=== PATIENT | female | born 1960 | race Caucasian/White ===

== ENCOUNTER 2017-11-05 13:09 | Emergency (ER) | payer OTHER, MEDICARE, SELFPAY ==
[2017-11-05] VITALS (8 sets, daily range): BP systolic 86–139; BP diastolic 44–100; PULSE 70–116; RESP 18–28; TEMP 36.6; O2SAT 95–100; BMI 16.2
--- NOTE | 2017-11-05 13:14 | EKG12_ITS ---
Test Reason : CHEST PAIN Blood Pressure : / mmHG Vent. Rate : 108 BPM Atrial Rate : 108 BPM P-R Int : 118 ms QRS Dur : 064 ms QT Int : 372 ms P-R-T Axes : 072 072 069 degrees QTc Int : 498 ms Sinus tachycardia Otherwise normal ECG Confirmed by SARAH SERNA, LATASHA ([id number]), research editor FAZAL STOUT ([id number]) on 11/08/2017 4:04:20 PM Referred By: Confirmed By:LATASHA SMITH MD
--- NOTE | 2017-11-05 13:33 | ED.VISSUMM ---
- ER Visit Summary Date of Service: 11/05/17 Chief Complaint: [] Myelodysplastic disorder, chemotherapy for 4 days last week, diarrhea 1 week ago, cough for a week, chest pain this morning History of Present Illness: The patient is a 57 F [] reports all that above history she has myelodysplastic disorder, prior stroke hemorrhagic, she is not sure if she currently has hypertension, she indicates she has chemotherapy daily for 5 days last week she developed diarrhea and a cough and this morning developed chest pain that she really cannot describe might be worse with coughing. She has had no fevers the diarrhea is watery, the cough is nonproductive and dry she has had no fevers that she can recall she is followed by Dr. Azul. She has no history of COPD [place] PE DVT Physical Examination: [] Sitting comfortably in the bed she is in no distress her vital signs are normal her pulse ox on room air is 98% she is afebrile her HEENT exam shows unremarkable neck supple lungs are clear heart tones are unremarkable abdomen soft nontender the left lower extremity has a skin abrasion she has had for 2 weeks it could potentially is cellulitic at is it has some yellow drainage to it she is able to fully dorsi and plantarflex at the ankle she was evaluated for this at wound care she was on antibiotics and now she is doing dressing changes neurologically she is awake alert moving all 4, she indicates the left lower extremity wound is really unchanged and she feels it is likely improving Test Results: [] Emergency Department Course and Treatment: [] Multiple complaints as above her blood pressure was noted to be 88 over palp she is a very frail petite woman or trying to obtain her med list initial EKG shows a sinus rhythm nothing acute screening labs Her labs are all generally unremarkable her blood pressure is now 107/88 she is resting company states she feels much better her troponin chest x-ray etc. are normal, her d-dimer returned slightly positive at 0.68, she has no history of IL PE or DVT infection and negative nuclear stress test in 2016 Cough and diarrhea are currently resolved Discussed with the patient inpatient versus outpatient management I recommended admission however she states she is feeling better and she does not wish to be admitted family is in the room with her, she has obvious capacity to make this decision and she understands a concern for an occult life-threatening condition but again does not wish to be admitted feels better and wants to be worked up as an outpatient, she is agreeable to obtaining the CTA of the chest if the CT is negative at her request she will be discharged home with the understand to follow-up with her physicians and return for change in symptoms Treatment Plan: [] Disposition: [] Home pending CTA results Impression: [] Chest pain improved to resolved, cough and diarrhea resolved, history of myelodysplastic disorder recent chemotherapy This note was generated with [employer] dictation software. It may contain incorrect words, spelling, and punctuation that were not noted in review of the chart prior to signing ED Disposition - Plan for ED Patient: Chief Complaint: Chest Pain Referrals: Frankie Cao [Primary Care Provider] -
[2017-11-05] MEDS: Ondansetron 4 MG/2 ML Vial IV (13:35)
--- NOTE | 2017-11-05 13:40 | RAD_ITS ---
STUDY: X-RAY CHEST REASON FOR EXAM: Female, 57 years old. CHEST PAIN; LEUKEMIA TECHNIQUE: Single AP portable view of the chest. COMPARISON: July 24, 2017 FINDINGS: The lungs are again hyperexpanded with mildly prominent interstitial markings predominantly of the lower lobes.. There is no demonstrated pleural abnormality. Normal size heart. Normal mediastinum and joselyn. Normal visualized pulmonary arteries. Normal visualized aortic arch and descending thoracic aorta. Normal visualized thoracic spine. Normal visualized ribs, clavicles, and shoulders. There is no demonstrated abnormality of the visualized soft tissue structures of the upper abdomen. RAD/Chest 1 View (Portable) IMPRESSION: No acute disease is demonstrated. Electronically Signed: Oralia Leo MD at 13:55 EDT , Service support ,
[2017-11-05 13:47] LABS: Absolute Lymphocyte Count 0.59 X10^3/ul (0.83-4.51); Absolute Neutrophil Count 9.9 X10^3/uL (2.0-7.7); Basophil# 0.02 X10^3/uL; Basophil% 0.2 % (0-1); Eosinophils% 0.9 % (0-5); Hematocrit 30.8 % (37-47); Hemoglobin 10.4 g/dl (12.0-15.0); Lymphocyte # 0.59 X10^3/ul (4.0); Lymphocyte % 5.3 % (19-41); Mean Corp Hgb Conc 33.8 g/gl (32-36); Mean Corpuscular Hgb 35.3 pg (27.0-32.0); Mean Corpuscular Volume 104.4 fL (81-99); Mean Platelet Vol. 10.1 fl (6.2-12.0); Monocyte# 0.44 X10^3/uL; Neutrophil # 9.88 X10^3/uL (2.7-7.7); Neutrophil % 89.3 % (47-70); Platelet Count 81 K/mm3 (150-450); RBC Distribution Width CV 14.7 % (11.6-14.6); RBC Distribution Width SD 55.6 fl (35.1-43.9); Red Blood Count 2.95 M/mm3 (4.2-5.4); White Blood Count 11.1 K/mm3 (4.4-11.0)
[2017-11-05 13:48] LABS: Differential Indicated SCAN CRITERIA MET; POSITIVE COUNT NO; POSITIVE DIFFERENTIAL YES; POSITIVE MORPHOLOGY NO
[2017-11-05 13:56] LABS: Differential Comment SCANNED
[2017-11-05 14:02] LABS: Anion Gap 12 (5-15); BUN 8 mg/dL (7-18); BUN/Creat Ratio 9.6 RATIO (10-20); Calcium,Total 8.7 mg/dL (8.5-10.1); Chloride 100 mmol/L (98-107); Creatinine, Serum 0.84 mg/dL (0.55-1.02); EST Glomerular Filtration Rate 75 mL/min (>60); Est Glom Filt Rate - Afr Amer 90 mL/min (>60); Estimated Creatinine Clearance 54.94 ml/min; Glucose 88 mg/dL (74-106); Potassium 4.5 mmol/L (3.5-5.1); Sodium Level 136 mmol/L (136-145)
[2017-11-05] MEDS: 0.9% Normal Saline 1,000 ML 150 ML IV ×2 (14:05)
[2017-11-05 14:11] LABS: BNP,B-Type NATRIURETIC PEPTIDE 18.9 pg/mL (0-100)
[2017-11-05 14:37] LABS: Partial Thromboplast Time 32.4 Seconds (24.1-36.2)
[2017-11-05 14:41] LABS: D-Dimer Quantitative (DVT/PE) 0.82 FEU/ug/m (0.27-0.49)
--- NOTE | 2017-11-05 14:53 | CT_ITS ---
STUDY: CTA CHEST REASON FOR EXAM: Female, 57 years old. CHEST PAIN, COUGH X2 WEEKS hx-myelodysplastic syndrome w/ chemo x7 years +smoker 1/2 ppd x20 years RADIATION DOSAGE (If Supplied By Facility): CTDIvol = ( 4.27 ) mGy, DLP = ( 150.49 ) mGycm TECHNIQUE: The examination was performed with the intravenous administration of 75cc ml of Isovue 370 contrast material. Post-processing of the angiographic images was performed, with multiplanar reformation and 3D reconstruction. Individualized dose optimization techniques were used for this CT. COMPARISON: X-ray earlier in the day, CT August 29, 2014 FINDINGS: There is motion artifact. Normal enhancement of the main pulmonary artery and right and left pulmonary arteries. Normal enhancement of the bilateral peripheral pulmonary arteries. There is no demonstrated pulmonary embolism. There is atherosclerotic calcification of the aortic arch with tortuosity. There is no demonstrated aortic dissection. Normal heart and pericardium. Normal mediastinum. There are stable left hilar calcified lymph nodes. Normal visualized trachea and bronchi. Lungs are again hyperexpanded with bullous disease. There are stable postinflammatory changes of the lung apices. There is a stable left lower lobe calcification granuloma. Normal chest wall structures. There are degenerative changes of thoracic spine. Again seen are multiple calcified granulomata of the spleen. CT/CTA Chest W/WO Contrast IMPRESSION: No demonstrated pulmonary embolism or aortic dissection. No acute abnormality is demonstrated. Electronically Signed: Oralia Leo MD at 15:52 EDT , Service support ,
--- NOTE | 2017-11-05 15:15 | ED.DEP ---
ED Disposition - Plan for ED Patient: Chief Complaint: Chest Pain Instructions: ED Chest Pain Atypical Unkn Cause Referrals: Frankie Cao [Primary Care Provider] - Lindsay Nguyen MD [STAFF PHYSICIAN] -
--- NOTE | 2017-11-05 16:14 | EKG12_ITS ---
Test Reason : REPEAT Blood Pressure : / mmHG Vent. Rate : 097 BPM Atrial Rate : 097 BPM P-R Int : 134 ms QRS Dur : 064 ms QT Int : 394 ms P-R-T Axes : 075 054 063 degrees QTc Int : 500 ms Normal sinus rhythm Prolonged QT Abnormal ECG Confirmed by SARAH SERNA, LATASHA ([id number]), newspaper photo editor FAZAL STOUT ([id number]) on 11/08/2017 4:04:38 PM Referred By: TL Confirmed By:LATASHA SMITH MD
[2017-11-05 16:19] LABS: Bacteria 0 SEEN /hpf (None Seen); Mucous, Urine 0 SEEN /hpf (<or=2+); Red Blood Cells-Urine 0 SEEN /hpf (0-5)
[2017-11-05 16:33] LABS: Color, Urine Yellow (Yellow); Glucose, Dipstick Normal (Normal); Ketone-Dipstick Negative (Negative); Leukocyte Esterase-Dipstick 500 /ul (Negative); Nitrite-Dipstick Negative (Negative); Occult Blood-Urine 50 /ul (Negative); Protein-Dipstick 30 mg/dl (Negative); Urine Bilirubin Dipstick Negative (Negative); Urine Clarity Cloudy (Clear); Urine Urobilinogen 1 mg/dl (Normal)
[2017-11-05 16:44] LABS: Squamous Epithelial Cells - UA 10-25 SEEN /hpf (5-10); White Blood Cells 0-5 SEEN /hpf (0-5)
== END 2017-11-05 18:16 | disposition home or self-care (01) ==
PROVIDERS: Emergency Medicine; Emergency Provider Emergency Medicine
DX: R07.9 Chest pain, unspecified (principal); I95.9 Hypotension, unspecified; R11.2 Nausea with vomiting, unspecified; R05 Cough; R19.7 Diarrhea, unspecified; C94.6 Myelodysplastic disease, not elsewhere classified; Z86.73 Personal history of transient ischemic attack (TIA), and cerebral infarction without residual deficits; Z79.891 Long term (current) use of opiate analgesic; Z79.899 Other long term (current) drug therapy
CPT/HCPCS: 36415; 36591; 71045; 71275; 80048; 81001; 83880; 84484; 85025; 85379; 85730; 87070; 87077; 87186; 87205; 93005; 96361; 96374; 96375; 96376; 99285; J7030; J7040; Q9967; A4216; J2405

== ENCOUNTER 2018-02-19 22:57 | Observation (INO) | payer OTHER, MEDICARE, SELFPAY ==
[2018-02-19 22:59] VITALS: BP 118/78; PULSE 95; RESP 24; TEMP 36.7; O2SAT 98; BMI 18.3
--- NOTE | 2018-02-19 23:36 | EKG12_ITS ---
Test Reason : SOB Blood Pressure : / mmHG Vent. Rate : 078 BPM Atrial Rate : 078 BPM P-R Int : 118 ms QRS Dur : 068 ms QT Int : 426 ms P-R-T Axes : 061 061 059 degrees QTc Int : 485 ms Normal sinus rhythm with sinus arrhythmia Prolonged QT Abnormal EKG Confirmed by SARAH SERNA, LATASHA ([id number]), food expeditor SHERRI VIDAL ([id number]) on 02/22/2018 4:28:43 PM Referred By: DR GONSALEZ Confirmed By:LATASHA SMITH MD
--- NOTE | 2018-02-19 23:40 | ED.DCSUM_ITS ---
- ER Visit Summary Date of Service: 02/19/18 Chief Complaint: [Shortness of breath and weakness] History of Present Illness: The patient is a 57 F [who presents the emergency department with general malaise. It started yesterday. She has not eaten for the last 2 days she has had a small amount of fluids. She had a fever of 101 yesterday. She has a cough is nonproductive. She has a history of anxiety but ran out of her medication 1-2 weeks ago which was Ativan. She complains of general weakness. She has a history of myelodysplastic syndrome and COPD she is on chemotherapy followed by Dr. Azul she is a smoker.] Physical Examination: [] Cachectic WD NAD PERRL EOMI pale conjunctive a MMM NECK supple and nontender, no masses RRR no murmur rub or gallop, no peripheral edema, symmetric radial pulses Slightly diminished breath sounds diffusely no respiratory distress tachypnea ABDOMEN is soft and nontender, normal bowel sounds, no distension, no rebound or guarding SKIN is warm and dry no rashes multiple small superficial bruising under the skin of the extremities Alert and Oriented x3, CN II-XII in tact, no motor or sensory deficits, gait normal No lymphadenopathy Test Results: [] Emergency Department Course and Treatment: [EKG was obtained and sinus at a rate of 78 with a slightly prolonged QTC at 485 ms. There is no acute ischemic changes. Chest x-ray shows no acute process. Screening labs show anemia otherwise unremarkable. Patient was quite anxious she was given Ativan and her anxiety improved however she remained very tachycardic in the 1 teens and with any movement she would have a heart rate in the 120s-130s. She is on chemotherapy for mild [place] dysplastic syndrome. Cultures were sent. She has been coughing she has had no appetite she is not eating or drinking she has had chills and sweats for those reasons I do think we should cover her with antibiotics in the abnormalities and her vital signs require admission.] Treatment Plan: [] Disposition: [Admit] Impression: [Clinical pneumonia 2 dehydration 3 orthostasis] This note was generated with [email or web address] dictation software. It may contain incorrect words, spelling, and punctuation that were not noted in review of the chart prior to signing ED Disposition - Plan for ED Patient: Chief Complaint: Shortness of Breath Referrals: NOT,DEFINED [NON-STAFF] -
[2018-02-20] VITALS (9 sets, daily range): BP systolic 102–134; BP diastolic 67–84; PULSE 85–118; RESP 17–25; TEMP 36.6–36.9; O2SAT 94–97; BMI 14.6
[2018-02-20] MEDS: Albuterol 2.5 MG/3 ML VIAL.NEB. INHALATION
--- NOTE | 2018-02-20 | RAD_ITS ---
STUDY: X-RAY CHEST REASON FOR EXAM: Female, 57 years old. Cough and shortness of breath. Smoker. History of COPD and leukemia. TECHNIQUE: Frontal and lateral views of the chest. COMPARISON: 11/05/2017. FINDINGS: There is a left subclavian Port-A-Cath with its tip in the superior vena cava. There are extensive fibrotic and emphysematous changes in the lungs, with most prominent emphysematous changes in the upper lung mcpherson. There is no demonstrated focal pulmonary consolidation. There is no demonstrated pleural abnormality. Normal size heart. Normal mediastinum and joselyn. Normal visualized pulmonary arteries. Normal visualized aortic arch and descending thoracic aorta. Normal visualized thoracic spine. Normal visualized ribs, clavicles, and shoulders. There is no demonstrated abnormality of the visualized soft tissue structures of the upper abdomen. RAD/Chest PA and Lateral IMPRESSION: Extensive fibrotic and emphysematous changes in the lungs Port-A-Cath. No evidence for acute cardiopulmonary pathology. Electronically Signed: Alejandro Estrada MD at 2:11 EDT , Service support ,
[2018-02-20 00:09] LABS: Absolute Lymphocyte Count 0.81 X10^3/ul (0.83-4.51); Absolute Neutrophil Count 5.9 X10^3/uL (2.0-7.7); Basophil# 0.01 X10^3/uL; Basophil% 0.1 % (0-1); Eosinophil# 0.04 X10^3/uL; Eosinophils% 0.6 % (0-5); Hematocrit 28.1 % (37-47); Hemoglobin 9.4 g/dl (12.0-15.0); Lymphocyte # 0.81 X10^3/ul (4.0); Lymphocyte % 11.5 % (19-41); Mean Corp Hgb Conc 33.5 g/gl (32-36); Mean Corpuscular Hgb 34.9 pg (27.0-32.0); Mean Corpuscular Volume 104.5 fL (81-99); Mean Platelet Vol. 10.6 fl (6.2-12.0); Monocyte# 0.27 X10^3/uL; Monocyte% 3.8 % (0-10); Neutrophil # 5.87 X10^3/uL (2.7-7.7); Neutrophil % 83.7 % (47-70); Platelet Count 104 K/mm3 (150-450); RBC Distribution Width CV 13.6 % (11.6-14.6); RBC Distribution Width SD 49.5 fl (35.1-43.9); Red Blood Count 2.69 M/mm3 (4.2-5.4)
[2018-02-20 00:12] LABS: POSITIVE COUNT NO; POSITIVE DIFFERENTIAL NO; POSITIVE MORPHOLOGY NO
[2018-02-20 00:32] LABS: Anion Gap 10 (5-15); BUN 9 mg/dL (7-18); BUN/Creat Ratio 12.6 RATIO (10-20); Calcium,Total 7.6 mg/dL (8.5-10.1); Chloride 102 mmol/L (98-107); Creatinine, Serum 0.72 mg/dL (0.55-1.02); EST Glomerular Filtration Rate 89 mL/min (>60); Est Glom Filt Rate - Afr Amer 108 mL/min (>60); Glucose 76 mg/dL (74-106); Potassium 3.7 mmol/L (3.5-5.1); Sodium Level 136 mmol/L (136-145)
[2018-02-20] MEDS: LORazepam 2 MG/ML Syringe 0.5 MG IV (02:58)
[2018-02-20] MEDS: levoFLOXacin IV 750 MG/150 ML BAG 100 MG IV (03:51)
--- NOTE | 2018-02-20 05:26 | PCM.HP.STD ---
Problem List (1) Alcoholism Status: Chronic (2) Nicotine abuse Status: Chronic (3) Hyperlipidemia Status: Chronic (4) Atherosclerotic heart disease of [place] coronary artery without angina pectoris Status: Chronic (5) HTN (hypertension) Status: Chronic (6) MDS (myelodysplastic syndrome) Status: Chronic (7) Shortness of breath Status: Acute History of Present Illness Date of Admission: 02/20/18 Chief Complaint: shortness of breath The patient is a 57 year old female patient with a significant history of COPD, coronary artery disease, history of alcohol abuse and chronic benzodiazepine use who is undergoing treatment for myelodysplastic syndrome who presents to the ER with shortness of breath. She reports not eating for the past two days. She had a fever of 101F at home yesterday. In the ER she is afebrile but has tachycardia and tachypnea. Lab studies are consistent with mild anemia and chest x-ray reveals emphysema. The ER physician speculates that patient may have pneumonia but is dehydrated and infiltrate not visible on x-ray for that reason. The patient will be admitted for observation status of this respiratory distress. Past Medical History Past Medical History (Chronic Problems): Chronic Problems (Last Updated 01/08/18 @ 13:22 by Rosalie Vickers) Alcoholism (Chronic) Nicotine abuse (Chronic) Acute [place], subendocardial (Chronic) Hyperlipidemia (Chronic) Atherosclerotic heart disease of [place] coronary artery without angina pectoris (Chronic) UIP (usual interstitial pneumonitis) (Chronic) suspected severe chronic changes on CT scan Stroke, hemorrhagic (Chronic) reportedly after a fall w head trauma HTN (hypertension) (Chronic) MDS (myelodysplastic syndrome) (Chronic) Medical History: Medical History (Last Updated 01/08/18 @ 13:22 by Rosalie Vickers) Alcoholism (Chronic) F10.20 Acute [place], subendocardial (Chronic) I21.4 Hyperlipidemia (Chronic) E78.5 Atherosclerotic heart disease of [place] coronary artery without angina pectoris (Chronic) I25.10 Acute respiratory failure with hypoxia (Acute) J96.01 Stroke, hemorrhagic (Chronic) I61.9 reportedly after a fall w head trauma HTN (hypertension) (Chronic) I10 MDS (myelodysplastic syndrome) (Chronic) D46.9 Chronic interstitial lung disease J84.9 Renal failure N19 Seizure disorder G40.909 Allergies No Known Allergies Allergy (Verified 02/19/18 23:01) Home Medications: Ambulatory Orders Medication Instructions Recorded Gabapentin [Neurontin] 800 mg PO TIDCM 08/29/14 Amitriptyline HCl 25 mg PO QHS 01/17/15 Lorazepam [Ativan] 0.5 mg PO BID 01/17/15 Sertraline HCl [Zoloft] 100 mg PO DAILY 01/17/15 Multivitamins,Ther W-Minerals 1 tablet PO DAILY 09/20/15 [Multivitamin With Minerals] Ondansetron [Zofran Odt] 8 mg PO Q8H PRN PRN 09/20/15 levETIRAcetam tablet [Keppra 500 mg PO BID 03/27/16 tablet] Nitroglycerin 0.4 mg SL PRN PRN 07/17/17 Omeprazole [Prilosec] 40 mg PO DAILY 07/17/17 Potassium Chloride [Klor-Con M20] 20 meq PO TID 07/17/17 Diphenoxylate HCl/Atropine 1 each PO 4X/DAY PRN 11/05/17 [Diphenoxylate-Atrop 2.5-0.025] Ergocalciferol (Vitamin D2) 50,000 unit PO QWEEK 11/05/17 [Ergocalciferol] Hydrocodone/Acetaminophen [Vicodin 1 - 2 tablet PO Q6H PRN PRN 11/05/17 5-300 mg Tablet] atorvastatin 10 mg tablet 10 mg PO QDAY 11/13/17 Surgical History: Surgical History (Last Updated 01/08/18 @ 13:22 by Rosalie Vickers) Hx of craniotomy Onset Date: ~2012 Z98.890 Hx of tubal ligation Z98.51 Smoking Status: Current some day smoker - *Family History Maternal Family History: Family History (Last Updated 01/08/18 @ 13:24 by Rosalie Vickers) Mother CAD (coronary artery disease) Brother Hypertension Atrial fibrillation History Items: Unknown Review of Systems Constitutional: Reports: Fever, Malaise, Weakness. Denies: Chills, Weight Change HEENT: Denies: Head Aches, Sinus Congestion, Sinus Drainage Cardiovascular: Denies: Chest Pain, Palpitations Respiratory: Reports: Shortness of breath at rest. Denies: Cough, Sputum production Gastrointestinal: Denies: Abdominal Pain, Nausea, Vomiting Genitourinary: Denies: Dysuria Musculoskeletal: Denies: Joint Pain, Joint Tenderness Skin: Denies: Rash, Wounds Neurological: Denies: Numbness, Tingling, Focal weakness Psychiatric: Reports: Anxiety. Denies: Depression, Homicidal Ideations, Suicidal Ideations Hematologic/ Lymphatic: Denies: Easy Bruising, Easy Bleeding VTE Information - Inpt Only VTE Present on Admission: No VTE Mechan Device Prophylaxis: SCD's VTE Pharm Prophylaxis ordered?: No Patient Problems: Active and Suspected Problems (Last Updated 01/08/18 @ 13:22 by Rosalie Vickers) Shortness of breath (Acute) - Physical Exam General: Alert, Oriented x3, Cooperative HEENT: Atraumatic, Normocephalic Neck: Supple Lungs: Normal air movement, Diminished Cardiovascular: Normal S1, Normal S2, No murmurs, Tachycardic Abdomen: Bowel Sounds Present, Soft, Non Tender Extremities: No edema Skin: No rashes Musculoskeletal: No Tenderness to Palpation of Joints or Extremities Neurological: Neuro grossly intact Psych/Mental Status: Anxious Vital Signs Temp Pulse Resp BP Pulse Ox 98.0 F 118 H 25 H 114/68 95 02/19/18 22:59 02/20/18 02:56 02/20/18 02:56 02/20/18 02:56 02/20/18 02:56 Oxygen Delivery Method Room Air Weight: 110 lb Body Mass Index (BMI) 18.3 Microbiology Past 72 Hours 02/20/18 00:10 Influenza Types A,B Direct FA (TINY) - Final Mucosa - Nose Laboratory Tests Past 24 Hrs 02/19/18 02/19/18 23:55 23:55 WBC 7.0 RBC 2.69 L Hgb 9.4 L Hct 28.1 L MCV 104.5 H MCH 34.9 H MCHC 33.5 RDW 13.6 RDW Differential 49.5 H Plt Count 104 L MPV 10.6 Immature Gran % (Auto) 0.300 Neut % (Auto) 83.7 H Lymph % (Auto) 11.5 L Lyman % (Auto) 3.8 Eos % (Auto) 0.6 Baso % (Auto) 0.1 Absolute Neuts (auto) 5.9 Absolute Lymphs (auto) 0.81 L Total Counted Not Reportable Sodium 136 Potassium 3.7 Chloride 102 Carbon Dioxide 24.0 Anion Gap 10 BUN 9 Creatinine 0.72 Estim Creat Clear Calc 67.90 Est GFR (MDRD) Af Amer 108 Est GFR (MDRD) Non-Af 89 BUN/Creatinine Ratio 12.6 Glucose 76 Calcium 7.6 L Troponin I < 0.015 Assessment/Plan All Active Problems (Last Updated 01/08/18 @ 13:22 by Rosalie Vickers) Shortness of breath (Acute) Acute respiratory failure with hypoxia (Acute) Chronic Problems (Last Updated 01/08/18 @ 13:22 by Rosalie [employer]) Alcoholism (Chronic) Nicotine abuse (Chronic) Acute [place], subendocardial (Chronic) Hyperlipidemia (Chronic) Atherosclerotic heart disease of [place] coronary artery without angina pectoris (Chronic) UIP (usual interstitial pneumonitis) (Chronic) suspected severe chronic changes on CT scan Stroke, hemorrhagic (Chronic) reportedly after a fall w head trauma HTN (hypertension) (Chronic) MDS (myelodysplastic syndrome) (Chronic) plan - admit to medical surgical floor for observation - oxygen per routine, DuoNeb inh q 4 hrs, Solumedrol 40mg iv q 8 hrs - levaquin 500mg IV q 24hrs - repeat cxr PA/LAT - IV normal saline at 100cc/hour - continue routine home medications - repeat CBC, BMP this evening - SCD for DVT prophylaxis Code Visit OBSV E&M: [id number] Initial observation care L2
--- NOTE | 2018-02-20 05:35 | HP.PCM_ITS ---
Problem List (1) Alcoholism Status: Chronic (2) Nicotine abuse Status: Chronic (3) Hyperlipidemia Status: Chronic (4) Atherosclerotic heart disease of [place] coronary artery without angina pectoris Status: Chronic (5) HTN (hypertension) Status: Chronic (6) MDS (myelodysplastic syndrome) Status: Chronic (7) Shortness of breath Status: Acute History of Present Illness Date of Admission: 02/20/18 Chief Complaint: shortness of breath The patient is a 57 year old female patient with a significant history of COPD, coronary artery disease, history of alcohol abuse and chronic benzodiazepine use who is undergoing treatment for myelodysplastic syndrome who presents to the ER with shortness of breath. She reports not eating for the past two days. She had a fever of 101F at home yesterday. In the ER she is afebrile but has tachycardia and tachypnea. Lab studies are consistent with mild anemia and chest x-ray reveals emphysema. The ER physician speculates that patient may have pneumonia but is dehydrated and infiltrate not visible on x-ray for that reason. The patient will be admitted for observation status of this respiratory distress. Past Medical History Past Medical History (Chronic Problems): Chronic Problems (Last Updated 01/08/18 @ 13:22 by Rosalie Vickers) Alcoholism (Chronic) Nicotine abuse (Chronic) Acute [place], subendocardial (Chronic) Hyperlipidemia (Chronic) Atherosclerotic heart disease of [place] coronary artery without angina pectoris (Chronic) UIP (usual interstitial pneumonitis) (Chronic) suspected severe chronic changes on CT scan Stroke, hemorrhagic (Chronic) reportedly after a fall w head trauma HTN (hypertension) (Chronic) MDS (myelodysplastic syndrome) (Chronic) Medical History: Medical History (Last Updated 01/08/18 @ 13:22 by Rosalie Vickers) Alcoholism (Chronic) F10.20 Acute [place], subendocardial (Chronic) I21.4 Hyperlipidemia (Chronic) E78.5 Atherosclerotic heart disease of [place] coronary artery without angina pectoris (Chronic) I25.10 Acute respiratory failure with hypoxia (Acute) J96.01 Stroke, hemorrhagic (Chronic) I61.9 reportedly after a fall w head trauma HTN (hypertension) (Chronic) I10 MDS (myelodysplastic syndrome) (Chronic) D46.9 Chronic interstitial lung disease J84.9 Renal failure N19 Seizure disorder G40.909 Allergies No Known Allergies Allergy (Verified 02/19/18 23:01) Home Medications: Ambulatory Orders Medication Instructions Recorded Gabapentin [Neurontin] 800 mg PO TIDCM 08/29/14 Amitriptyline HCl 25 mg PO QHS 01/17/15 Lorazepam [Ativan] 0.5 mg PO BID 01/17/15 Sertraline HCl [Zoloft] 100 mg PO DAILY 01/17/15 Multivitamins,Ther W-Minerals 1 tablet PO DAILY 09/20/15 [Multivitamin With Minerals] Ondansetron [Zofran Odt] 8 mg PO Q8H PRN PRN 09/20/15 levETIRAcetam tablet [Keppra 500 mg PO BID 03/27/16 tablet] Nitroglycerin 0.4 mg SL PRN PRN 07/17/17 Omeprazole [Prilosec] 40 mg PO DAILY 07/17/17 Potassium Chloride [Klor-Con M20] 20 meq PO TID 07/17/17 Diphenoxylate HCl/Atropine 1 each PO 4X/DAY PRN 11/05/17 [Diphenoxylate-Atrop 2.5-0.025] Ergocalciferol (Vitamin D2) 50,000 unit PO QWEEK 11/05/17 [Ergocalciferol] Hydrocodone/Acetaminophen [Vicodin 1 - 2 tablet PO Q6H PRN PRN 11/05/17 5-300 mg Tablet] atorvastatin 10 mg tablet 10 mg PO QDAY 11/13/17 Surgical History: Surgical History (Last Updated 01/08/18 @ 13:22 by Rosalie Vickers) Hx of craniotomy Onset Date: ~2012 Z98.890 Hx of tubal ligation Z98.51 Smoking Status: Current some day smoker - *Family History Maternal Family History: Family History (Last Updated 01/08/18 @ 13:24 by Rosalie Vickers) Mother CAD (coronary artery disease) Brother Hypertension Atrial fibrillation History Items: Unknown Review of Systems Constitutional: Reports: Fever, Malaise, Weakness. Denies: Chills, Weight Change HEENT: Denies: Head Aches, Sinus Congestion, Sinus Drainage Cardiovascular: Denies: Chest Pain, Palpitations Respiratory: Reports: Shortness of breath at rest. Denies: Cough, Sputum production Gastrointestinal: Denies: Abdominal Pain, Nausea, Vomiting Genitourinary: Denies: Dysuria Musculoskeletal: Denies: Joint Pain, Joint Tenderness Skin: Denies: Rash, Wounds Neurological: Denies: Numbness, Tingling, Focal weakness Psychiatric: Reports: Anxiety. Denies: Depression, Homicidal Ideations, Suicidal Ideations Hematologic/ Lymphatic: Denies: Easy Bruising, Easy Bleeding VTE Information - Inpt Only VTE Present on Admission: No VTE Mechan Device Prophylaxis: SCD's VTE Pharm Prophylaxis ordered?: No Patient Problems: Active and Suspected Problems (Last Updated 01/08/18 @ 13:22 by Rosalie Vickers) Shortness of breath (Acute) - Physical Exam General: Alert, Oriented x3, Cooperative HEENT: Atraumatic, Normocephalic Neck: Supple Lungs: Normal air movement, Diminished Cardiovascular: Normal S1, Normal S2, No murmurs, Tachycardic Abdomen: Bowel Sounds Present, Soft, Non Tender Extremities: No edema Skin: No rashes Musculoskeletal: No Tenderness to Palpation of Joints or Extremities Neurological: Neuro grossly intact Psych/Mental Status: Anxious Vital Signs Temp Pulse Resp BP Pulse Ox 98.0 F 118 H 25 H 114/68 95 02/19/18 22:59 02/20/18 02:56 02/20/18 02:56 02/20/18 02:56 02/20/18 02:56 Oxygen Delivery Method Room Air Weight: 110 lb Body Mass Index (BMI) 18.3 Microbiology Past 72 Hours 02/20/18 00:10 Influenza Types A,B Direct FA (TINY) - Final Mucosa - Nose Laboratory Tests Past 24 Hrs 02/19/18 02/19/18 23:55 23:55 WBC 7.0 RBC 2.69 L Hgb 9.4 L Hct 28.1 L MCV 104.5 H MCH 34.9 H MCHC 33.5 RDW 13.6 RDW Differential 49.5 H Plt Count 104 L MPV 10.6 Immature Gran % (Auto) 0.300 Neut % (Auto) 83.7 H Lymph % (Auto) 11.5 L [place] % (Auto) 3.8 Eos % (Auto) 0.6 Baso % (Auto) 0.1 Absolute Neuts (auto) 5.9 Absolute Lymphs (auto) 0.81 L Total Counted Not Reportable Sodium 136 Potassium 3.7 Chloride 102 Carbon Dioxide 24.0 Anion Gap 10 BUN 9 Creatinine 0.72 Estim Creat Clear Calc 67.90 Est GFR (MDRD) Af Amer 108 Est GFR (MDRD) Non-Af 89 BUN/Creatinine Ratio 12.6 Glucose 76 Calcium 7.6 L Troponin I < 0.015 Assessment/Plan All Active Problems (Last Updated 01/08/18 @ 13:22 by Rosalie Vickers) Shortness of breath (Acute) Acute respiratory failure with hypoxia (Acute) Chronic Problems (Last Updated 01/08/18 @ 13:22 by [facility]) Alcoholism (Chronic) Nicotine abuse (Chronic) Acute [place], subendocardial (Chronic) Hyperlipidemia (Chronic) Atherosclerotic heart disease of [place] coronary artery without angina pectoris (Chronic) UIP (usual interstitial pneumonitis) (Chronic) suspected severe chronic changes on CT scan Stroke, hemorrhagic (Chronic) reportedly after a fall w head trauma HTN (hypertension) (Chronic) MDS (myelodysplastic syndrome) (Chronic) plan - admit to medical surgical floor for observation - oxygen per routine, DuoNeb inh q 4 hrs, Solumedrol 40mg iv q 8 hrs - levaquin 500mg IV q 24hrs - repeat cxr PA/LAT - IV normal saline at 100cc/hour - continue routine home medications - repeat CBC, BMP this evening - SCD for DVT prophylaxis Code Visit OBSV E&M: 40058 Initial observation care L2
--- NOTE | 2018-02-20 06:18 | ED.RN ---
PATIENT PULLED PORT ACCESS OUT OF HERE AT THIS TIME. PATIENT NEEDLE INTAKE. PATIENT REACCESSED PRIOR TO GOING TO FLOOR
[2018-02-20] MEDS: 0.9% Normal Saline 1,000 ML 100 ML IV (08:00)
[2018-02-20 08:03] LABS: Bacteria 0 SEEN /hpf (None Seen); Mucous, Urine 0 SEEN /hpf (<or=2+); Red Blood Cells-Urine 0 SEEN /hpf (0-5)
[2018-02-20 08:25] LABS: Color, Urine Yellow (Yellow); Glucose, Dipstick Normal (Normal); Ketone-Dipstick 15 mg/dl (Negative); Leukocyte Esterase-Dipstick 25 /ul (Negative); Nitrite-Dipstick Negative (Negative); Occult Blood-Urine Negative /ul (Negative); Protein-Dipstick 30 mg/dl (Negative); Urine Clarity Sl. Cloudy (Clear); Urine Urobilinogen 12 mg/dl (Normal)
[2018-02-20 08:26] LABS: Urine Bilirubin Dipstick 3 mg/dL (Negative)
[2018-02-20 08:32] LABS: Squamous Epithelial Cells - UA 0-5 SEEN /hpf (5-10); White Blood Cells 0-5 SEEN /hpf (0-5)
--- NOTE | 2018-02-20 09:22 | NURSING ---
no scheduled meds delivered at this time-will monitor, sent Rx note to please send and put in ACCUDOSE for access
[2018-02-20] MEDS: Pantoprazole Sodium 40 MG Tablet PO (09:34)
[2018-02-20] MEDS: LORazepam 0.5 MG Tablet PO (09:34)
[2018-02-20] MEDS: levETIRAcetam 500 MG Tablet PO (09:34)
[2018-02-20] MEDS: Multivitamins,Ther W-Minerals Tablet 1 TABLET PO (09:34)
[2018-02-20] MEDS: Ipratropium/Albuterol Sulfate 3 ML AMPUL.NEB INHALATION ×2 (10:16)
--- NOTE | 2018-02-20 10:27 | PCM.PN.HOSP ---
Patient Problems: Active and Suspected Problems (Last Updated 01/08/18 @ 13:22 by Rosalie Vickers) Shortness of breath (Acute) Subjective: breathing well. no further fevers. Vitals/I&O's: Vital Signs Temp Pulse Resp BP Pulse Ox 36.6 C 110 H 20 H 124/75 H 97 02/20/18 06:58 02/20/18 06:58 02/20/18 06:58 02/20/18 06:58 02/20/18 06:58 Oxygen Delivery Method Room Air Weight: 40.398 kg Body Mass Index (BMI) 14.6 General: Alert, No apparent distress HEENT: Atraumatic, Normocephalic Oral: Moist Mucosa, No Gingival or Mucosal Lesions/ Ulcerations Neck: No Nodes, Thyroid Normal Size and Texture Lungs: Clear to auscultation, Normal air movement, No rhonchi, No wheeze Cardiovascular: Regular rate, Regular Rhythm, Normal S1, Normal S2, No murmurs Abdomen: Bowel Sounds Present, Soft, Non Tender, Non-Distended, No Hepato-splenomegaly Extremities: No edema, No Calf Tenderness Skin: No rashes, No breakdown Laboratory Results 02/20/18 07:55: Urine Color Yellow, Urine Clarity Sl. Cloudy, Urine pH 7.0, Ur Specific [place] 1.010, Urine Protein 30 H, Urine Glucose (UA) Normal, Urine Ketones 15 H, Urine Occult Blood Negative, Urine Nitrite Negative, Urine Bilirubin 3 H, Urine Urobilinogen 12 H, Ur Leukocyte Esterase 25 H, Urine RBC 0 SEEN, Urine WBC 0-5 SEEN, Ur Squamous Epith Cells 0-5 SEEN, Urine Bacteria 0 SEEN, Urine Mucus 0 SEEN Current Medications Albuterol/Ipratropium (Duoneb) 3 ml INHALATION Q4H.RT [facility] Last Admin: 02/20/18 10:16 Dose: 3 ml Amitriptyline HCl (Elavil) 25 mg PO QHS [facility] Atorvastatin Calcium (Lipitor) 10 mg PO QHS [facility] Diphenoxylate HCl/Atropine (Lomotil) 1 tablet PO 4X/DAY PRN PRN Reason: Diarrhea Ergocalciferol (Vitamin D) 50,000 unit PO QWEEK@1000 [facility] Gabapentin (Neurontin) 800 mg PO TIDCM [facility] Sodium Chloride () 500 mls @ 999 mls/hr IV .Q31M ONE Last Admin: 02/20/18 00:15 Dose: 999 mls/hr Sodium Chloride () 1,000 mls @ 100 mls/hr IV .Q10H [facility] Last Admin: 02/20/18 08:00 Dose: 100 mls/hr Levofloxacin (Levaquin Iv) 500 mg in 100 mls @ 100 mls/hr IV Q24 [facility] Levetiracetam (Keppra Tablet) 500 mg PO BID [facility] Last Admin: 02/20/18 09:34 Dose: 500 mg Lorazepam (Ativan) 0.5 mg PO BID [facility] Last Admin: 02/20/18 09:34 Dose: 0.5 mg Magnesium Hydroxide (Milk Of Magnesia) 30 ml PO DAILY PRN PRN PRN Reason: Constipation Methylprednisolone (Solu-Medrol) 40 mg IV Q8 [facility] Last Admin: 02/20/18 09:34 Dose: 40 mg Multivitamins/Minerals (Multivitamin With Minerals) 1 tablet PO DAILY@0800 [facility] Last Admin: 02/20/18 09:34 Dose: 1 tablet Ondansetron HCl (Zofran Odt) 8 mg PO Q8H PRN PRN PRN Reason: NAUSEA Pantoprazole Sodium (Protonix) 40 mg PO DAILY [facility] Last Admin: 02/20/18 09:34 Dose: 40 mg Potassium Chloride (K-Dur) 20 meq PO TIDCM [facility] Last Admin: 02/20/18 09:34 Dose: 20 meq Sertraline HCl (Zoloft) 100 mg PO DAILY [facility] Medical Necessity - Tobacco Use Smoking Status: Current some day smoker Assessment/Plan All Active Problems (Last Updated 01/08/18 @ 13:22 by Rosalie Vickers) Shortness of breath (Acute) Acute respiratory failure with hypoxia (Acute) 1. SIRS present on admission maybe a viral bronchitis empiric treatment for pneumonia given MDS w Levaquin 2. suspected COPD exacerbation cont nebs (has at home) prednisone 40 x 5 days 3. Shortness of breath never hypoxic (ruled out), therefore, no acute hypoxic resp failure. d/t #1 and 2. 4. MDS follow up with oncology as outpt Discharge home.
--- NOTE | 2018-02-20 10:31 | PN_ITS ---
Patient Problems: Active and Suspected Problems (Last Updated 01/08/18 @ 13:22 by Rosalie Vickers) Shortness of breath (Acute) Subjective: breathing well. no further fevers. Vitals/I&O's: Vital Signs Temp Pulse Resp BP Pulse Ox 36.6 C 110 H 20 H 124/75 H 97 02/20/18 06:58 02/20/18 06:58 02/20/18 06:58 02/20/18 06:58 02/20/18 06:58 Oxygen Delivery Method Room Air Weight: 40.398 kg Body Mass Index (BMI) 14.6 General: Alert, No apparent distress HEENT: Atraumatic, Normocephalic Oral: Moist Mucosa, No Gingival or Mucosal Lesions/ Ulcerations Neck: No Nodes, Thyroid Normal Size and Texture Lungs: Clear to auscultation, Normal air movement, No rhonchi, No wheeze Cardiovascular: Regular rate, Regular Rhythm, Normal S1, Normal S2, No murmurs Abdomen: Bowel Sounds Present, Soft, Non Tender, Non-Distended, No Hepato- splenomegaly Extremities: No edema, No Calf Tenderness Skin: No rashes, No breakdown Laboratory Results 02/20/18 07:55: Urine Color Yellow, Urine Clarity Sl. Cloudy, Urine pH 7.0, Ur Specific [place] 1.010, Urine Protein 30 H, Urine Glucose (UA) Normal, Urine Ketones 15 H, Urine Occult Blood Negative, Urine Nitrite Negative, Urine Bilirubin 3 H, Urine Urobilinogen 12 H, Ur Leukocyte Esterase 25 H, Urine RBC 0 SEEN, Urine WBC 0-5 SEEN, Ur Squamous Epith Cells 0-5 SEEN, Urine Bacteria 0 SEEN, Urine Mucus 0 SEEN Current Medications Albuterol/Ipratropium (Duoneb) 3 ml INHALATION Q4H.RT [facility] Last Admin: 02/20/18 10:16 Dose: 3 ml Amitriptyline HCl (Elavil) 25 mg PO QHS [facility] Atorvastatin Calcium (Lipitor) 10 mg PO QHS [facility] Diphenoxylate HCl/Atropine (Lomotil) 1 tablet PO 4X/DAY PRN PRN Reason: Diarrhea Ergocalciferol (Vitamin D) 50,000 unit PO QWEEK@1000 [facility] Gabapentin (Neurontin) 800 mg PO TIDCM [facility] Sodium Chloride () 500 mls @ 999 mls/hr IV .Q31M [facility] Last Admin: 02/20/18 00:15 Dose: 999 mls/hr Sodium Chloride () 1,000 mls @ 100 mls/hr IV .Q10H [facility] Last Admin: 02/20/18 08:00 Dose: 100 mls/hr Levofloxacin (Levaquin Iv) 500 mg in 100 mls @ 100 mls/hr IV Q24 [facility] Levetiracetam (Keppra Tablet) 500 mg PO BID [facility] Last Admin: 02/20/18 09:34 Dose: 500 mg Lorazepam (Ativan) 0.5 mg PO BID [facility] Last Admin: 02/20/18 09:34 Dose: 0.5 mg Magnesium Hydroxide (Milk Of Magnesia) 30 ml PO DAILY PRN PRN PRN Reason: Constipation Methylprednisolone (Solu-Medrol) 40 mg IV Q8 [facility] Last Admin: 02/20/18 09:34 Dose: 40 mg Multivitamins/Minerals (Multivitamin With Minerals) 1 tablet PO DAILY@0800 [facility] Last Admin: 02/20/18 09:34 Dose: 1 tablet Ondansetron HCl (Zofran Odt) 8 mg PO Q8H PRN PRN PRN Reason: NAUSEA Pantoprazole Sodium (Protonix) 40 mg PO DAILY [facility] Last Admin: 02/20/18 09:34 Dose: 40 mg Potassium Chloride (K-Dur) 20 meq PO TIDCM [facility] Last Admin: 02/20/18 09:34 Dose: 20 meq Sertraline HCl (Zoloft) 100 mg PO DAILY [facility] Medical Necessity - Tobacco Use Smoking Status: Current some day smoker Assessment/Plan All Active Problems (Last Updated 01/08/18 @ 13:22 by Rosalie Vickers) Shortness of breath (Acute) Acute respiratory failure with hypoxia (Acute) 1. SIRS * present on admission * maybe a viral bronchitis * empiric treatment for pneumonia given MDS w Levaquin 2. suspected COPD exacerbation * cont nebs (has at home) * prednisone 40 x 5 days 3. Shortness of breath * never hypoxic (ruled out), therefore, no acute hypoxic resp failure. * d/t #1 and 2. 4. MDS * follow up with oncology as outpt Discharge home.
--- NOTE | 2018-02-20 10:34 | PCM.DC ---
- Discharge Diagnoses Current Active Problems: Current Active and Chronic Problems (Last Updated 01/08/18 @ 13:22 by Rosalie Vickers) Shortness of breath (Acute) You will use the following diet at home:: No restrictions Your food should be the consistency of: Regular Call your doctor if you observe: Fever of 101 or Higher Allergies/Adverse Reactions: Allergies No Known Allergies Allergy (Verified 02/19/18 23:01) Medications to take at Discharge Gabapentin [Neurontin] 800 mg PO TIDCM 08/29/14 Amitriptyline HCl 25 mg PO QHS 01/17/15 Lorazepam [Ativan] 0.5 mg PO BID 01/17/15 Sertraline HCl [Zoloft] 100 mg PO DAILY 01/17/15 Multivitamins,Ther W-Minerals [Multivitamin With Minerals] 1 tablet PO DAILY 09/20/15 Ondansetron [Zofran Odt] 8 mg PO Q8H PRN PRN 09/20/15 levETIRAcetam tablet [Keppra tablet] 500 mg PO BID 03/27/16 Nitroglycerin 0.4 mg SL PRN PRN 07/17/17 Omeprazole [Prilosec] 40 mg PO DAILY 07/17/17 Potassium Chloride [Klor-Con M20] 20 meq PO TID 07/17/17 Diphenoxylate HCl/Atropine [Diphenoxylate-Atrop 2.5-0.025] 1 each PO 4X/DAY PRN 11/05/17 Ergocalciferol (Vitamin D2) [Ergocalciferol] 50,000 unit PO DAILY 11/05/17 Hydrocodone/Acetaminophen [Vicodin 5-300 mg Tablet] 1 - 2 tablet PO Q6H PRN PRN 11/05/17 atorvastatin 10 mg tablet 10 mg PO QHS 11/13/17 Levofloxacin [Levaquin] 500 mg PO DAILY #4 tab 02/20/18 Potassium Chloride [K-Dur] 20 meq PO TIDCM tablet 02/20/18 Prednisone 4 tab PO DAILY #20 tab 02/20/18 The following prescriptions were given: Levofloxacin [Levaquin] 500 mg PO DAILY #4 tab Prednisone 4 tab PO DAILY #20 tab Primary Care Physician: NOT,DEFINED [NON-STAFF] - Please Follow Up With: Tano Khoury III, MD - post-hospital follow up. When: 1-2 weeks Please Follow Up With: Chad Cowan MD When: next scheduled appointment. Proposed Discharge Date: 02/20/18
--- NOTE | 2018-02-20 10:38 | DS.PCM_ITS ---
Discharge Date and Diagnosis - Problem List Patient Problems: Active and Suspected Problems (Last Updated 01/08/18 @ 13:22 by [facility] [employer] [facility] [employer]) COPD exacerbation (Acute) SIRS (systemic inflammatory response syndrome) (Acute) Shortness of breath (Acute) Date of Admission: 02/20/18 Date of Discharge: 02/20/18 - Primary Discharge Diagnosis Active and Suspected Problems (Last Updated 01/08/18 @ 13:22 by [facility]) COPD exacerbation (Acute) SIRS (systemic inflammatory response syndrome) (Acute) Shortness of breath (Acute) - Secondary Discharge Diagnosis Chronic Problems (Last Updated 01/08/18 @ 13:22 by [facility]) Alcoholism (Chronic) Nicotine abuse (Chronic) Acute [place], subendocardial (Chronic) Hyperlipidemia (Chronic) Atherosclerotic heart disease of [place] coronary artery without angina pectoris (Chronic) UIP (usual interstitial pneumonitis) (Chronic) suspected severe chronic changes on CT scan Stroke, hemorrhagic (Chronic) reportedly after a fall w head trauma HTN (hypertension) (Chronic) MDS (myelodysplastic syndrome) (Chronic) Hospital Course and Treatment Imaging Results: 02/20/18 12:00 Chest PA and Lateral [RAD] Timed Clinical Impression(s) from Imaging Studies Chest X-Ray 02/20/18 00:00 IMPRESSION: Extensive fibrotic and emphysematous changes in the lungs Port-A-Cath. No evidence for acute cardiopulmonary pathology. Electronically Signed: Alejandro Estrada MD at 2:11 EDT , Service support , Operations: None Procedures: None Summary of Care Provided: The patient is a 57 year old F presents with shortness of breath. She had a fever at home. She was never hypoxic in the hospital. CXR here was negative. Feeling well today. 1. SIRS * present on admission * maybe a viral bronchitis * empiric treatment for pneumonia given MDS w Levaquin 2. suspected COPD exacerbation * cont nebs (has at home) * prednisone 40 x 5 days 3. Shortness of breath * never hypoxic (ruled out), therefore, no acute hypoxic resp failure. * d/t #1 and 2. 4. MDS * follow up with oncology as outpt[] Discharge Diet: No Restrictions Discharge Activity: Return to Normal Activity Call your doctor if you observe: Fever of 101 or Higher Home Medications: Medications to take at Discharge Gabapentin [Neurontin] 800 mg PO TIDCM 08/29/14 Amitriptyline HCl 25 mg PO QHS 01/17/15 Lorazepam [Ativan] 0.5 mg PO BID 01/17/15 Sertraline HCl [Zoloft] 100 mg PO DAILY 01/17/15 Multivitamins,Ther W-Minerals [Multivitamin With Minerals] 1 tablet PO DAILY Ondansetron [Zofran Odt] 8 mg PO Q8H PRN PRN 09/20/15 levETIRAcetam tablet [Keppra tablet] 500 mg PO BID 03/27/16 Nitroglycerin 0.4 mg SL PRN PRN 07/17/17 Omeprazole [Prilosec] 40 mg PO DAILY 07/17/17 Potassium Chloride [Klor-Con M20] 20 meq PO TID 07/17/17 Diphenoxylate HCl/Atropine [Diphenoxylate-Atrop 2.5-0.025] 1 each PO 4X/DAY PRN 11/05/17 Ergocalciferol (Vitamin D2) [Ergocalciferol] 50,000 unit PO DAILY 11/05/17 Hydrocodone/Acetaminophen [Vicodin 5-300 mg Tablet] 1 - 2 tablet PO Q6H PRN PRN 11/05/17 atorvastatin 10 mg tablet 10 mg PO QHS 11/13/17 Levofloxacin [Levaquin] 500 mg PO DAILY #4 tab 02/20/18 Potassium Chloride [K-Dur] 20 meq PO TIDCM tablet 02/20/18 Prednisone 4 tab PO DAILY #20 tab 02/20/18 Following Prescrptions Were Given to Patient: Levofloxacin [Levaquin] 500 mg PO DAILY #4 tab Prednisone 4 tab PO DAILY #20 tab Primary Care Physician: NOT,DEFINED [NON-STAFF] - Please Follow Up With: Tano Khoury III, MD - post-hospital follow up. When: 1-2 weeks Please Follow Up With: Chad Cowan MD When: next scheduled appointment. Disposition: Home Minutes spent on discharge:: 28 Patient Condition:: Fair Medical Necessity - Tobacco Use Smoking Status: Current some day smoker Meaningful Use Info Meaningful Use Diagnoses (Choose all that apply): None applicable Code Visit OBSV E&M: 40119 Observation care discharge
[2018-02-20] MEDS: Sertraline 100 MG Tablet PO (11:05)
[2018-02-20] MEDS: Gabapentin 800 MG Tablet PO (11:05)
== END 2018-02-20 13:08 | disposition home or self-care (01) ==
LOC: ED 02-20 01:15 → MS3 02-20 05:49
PROVIDERS: Admitting Provider Family Medicine; Emergency Provider Emergency Medicine; Family Provider Family Medicine; PCP Family Medicine
DX: J44.1 Chronic obstructive pulmonary disease with (acute) exacerbation (principal); R65.10 Systemic inflammatory response syndrome (SIRS) of non-infectious origin without acute organ dysfunction; F10.20 Alcohol dependence, uncomplicated; E78.5 Hyperlipidemia, unspecified; I25.2 Old myocardial infarction; I25.10 Atherosclerotic heart disease of native coronary artery without angina pectoris; Z86.73 Personal history of transient ischemic attack (TIA), and cerebral infarction without residual deficits; I10 Essential (primary) hypertension; D46.9 Myelodysplastic syndrome, unspecified; F17.200 Nicotine dependence, unspecified, uncomplicated; Z79.899 Other long term (current) drug therapy; J96.01 Acute respiratory failure with hypoxia; E86.0 Dehydration; F41.9 Anxiety disorder, unspecified; R64 Cachexia; Z68.1 Body mass index [BMI] 19.9 or less, adult
CPT/HCPCS: 36591; 71046; 80048; 81001; 84484; 85025; 87040; 87804; 93005; 94640; 96361; 96374; 96375; 97802; 99218; 99282; 99406; J7030; J7040; A4216; G0378

== ENCOUNTER → 2018-05-15 09:29 | Outpatient (CLI) | payer OTHER, MEDICARE, SELFPAY ==
[2018-05-15 09:48] VITALS: BP 92/56; PULSE 100; RESP 16; TEMP 36.6; O2SAT 97; BMI 13.3
[2018-05-15] MEDS: Acetaminophen 325 MG Tablet 650 MG PO (10:01)
[2018-05-15 10:45] VITALS: BP 92/67; PULSE 60; RESP 16; TEMP 36.4; O2SAT 100
[2018-05-15 12:40] VITALS: BP 114/74; PULSE 92; RESP 16; TEMP 37.2; O2SAT 93
[2018-05-15 13:04] VITALS: BP 100/72; PULSE 101; RESP 16; TEMP 37.2
[2018-05-15 14:59] VITALS: BP 95/47; PULSE 90; RESP 16; TEMP 36.7
== END ==
PROVIDERS: Family Provider Family Medicine; PCP Family Medicine; Visit Provider Internal Medicine Hematology & Oncology
DX: D46.9 Myelodysplastic syndrome, unspecified (principal)
CPT/HCPCS: 36430; 86644; 86850; 86900; 86920; 86922; J7040; P9040; A4216

== ENCOUNTER 2018-05-24 15:14 | Inpatient (IN) | payer OTHER, MEDICARE, SELFPAY ==
[2018-05-24 15:17] VITALS: BP 114/75; PULSE 110; RESP 20; TEMP 36.9; O2SAT 98; BMI 13.3
--- NOTE | 2018-05-24 15:44 | RAD_ITS ---
STUDY: X-RAY CHEST REASON FOR EXAM: Female, 57 years old. Chills. Cough. TECHNIQUE: Single AP portable view of the chest. COMPARISON: February 20, 2018 FINDINGS: Port on the left extends to the mid superior vena cava. There are left greater than right lower lung groundglass and interstitial increased opacities. There is left lower lung granuloma. There is no demonstrated pleural abnormality. Normal size heart. Normal mediastinum and joselyn. Normal visualized pulmonary arteries. Normal visualized aortic arch and descending thoracic aorta. Normal visualized thoracic spine. Compression fracture of the upper lumbar spine. Normal visualized ribs, clavicles, and shoulders. There is no demonstrated abnormality of the visualized soft tissue structures of the upper abdomen. RAD/Chest 1 View (Portable) IMPRESSION: Lower lung infiltrates or edema on the left more than the right Electronically Signed: William Ann MD at 16:13 EDT , Service support ,
[2018-05-24] MEDS: Ondansetron 4 MG/2 ML Vial IV (16:17)
[2018-05-24] MEDS: 0.9% Normal Saline 1,000 ML 1000 ML IV (16:17)
[2018-05-24 16:25] LABS: Absolute Lymphocyte Count 0.44 X10^3/ul (0.83-4.51); Absolute Neutrophil Count 9.4 X10^3/uL (2.0-7.7); Basophil# 0.01 X10^3/uL; Basophil% 0.1 % (0-1); Eosinophil# 0.01 X10^3/uL; Eosinophils% 0.1 % (0-5); Hematocrit 32.3 % (37-47); Hemoglobin 10.5 g/dl (12.0-15.0); Lymphocyte # 0.44 X10^3/ul (4.0); Lymphocyte % 4.4 % (19-41); Mean Corp Hgb Conc 32.5 g/gl (32-36); Mean Corpuscular Hgb 33.2 pg (27.0-32.0); Mean Corpuscular Volume 102.2 fL (81-99); Mean Platelet Vol. 10.7 fl (6.2-12.0); Monocyte# 0.26 X10^3/uL; Monocyte% 2.6 % (0-10); Neutrophil # 9.35 X10^3/uL (2.7-7.7); Neutrophil % 92.7 % (47-70); Platelet Count 75 K/mm3 (150-450); RBC Distribution Width SD 62.3 fl (35.1-43.9); Red Blood Count 3.16 M/mm3 (4.2-5.4); White Blood Count 10.1 K/mm3 (4.4-11.0)
[2018-05-24 16:26] LABS: Differential Indicated SCAN CRITERIA MET; POSITIVE COUNT NO; POSITIVE DIFFERENTIAL YES; POSITIVE MORPHOLOGY NO
[2018-05-24 16:37] LABS: ALB/GLOB Ratio 0.3 RATIO (0.9-2.4); AST(SGOT) 20 U/L (15-37); Alanine Aminotransfer ALT/SGPT 17 U/L (13-56); Albumin, Serum 1.5 g/dL (3.2-5.0); Alkaline Phosphatase 215 U/L (45-117); Anion Gap 9 (5-15); BUN 11 mg/dL (7-18); BUN/Creat Ratio 16.5 RATIO (10-20); Calcium,Total 6.5 mg/dL (8.5-10.1); Chloride 111 mmol/L (98-107); Creatinine, Serum 0.67 mg/dL (0.55-1.02); EST Glomerular Filtration Rate 97 mL/min (>60); Est Glom Filt Rate - Afr Amer 117 mL/min (>60); Estimated Creatinine Clearance 53.07 ml/min; Globulin 5.4 g/dL (2.2-4.2); Glucose 78 mg/dL (74-106); Potassium 4.4 mmol/L (3.5-5.1); Protein, Total 6.9 g/dL (6.4-8.2); Sodium Level 140 mmol/L (136-145)
--- NOTE | 2018-05-24 16:37 | EKG12_ITS ---
Test Reason : VOMITING Blood Pressure : / mmHG Vent. Rate : 100 BPM Atrial Rate : 100 BPM P-R Int : 128 ms QRS Dur : 058 ms QT Int : 398 ms P-R-T Axes : 055 080 112 degrees QTc Int : 513 ms Somatic/motion artifact Normal sinus rhythm Nonspecific ST and T wave abnormality Prolonged QT Abnormal ECG Confirmed by SELENA SERNA, NATHAN ([id number]), newspaper copy editor FAZAL STOUT ([id number]) on 05/28/2018 2:50:29 PM Referred By: Connie Carmona Confirmed By:NATHAN WALTERS MD
--- NOTE | 2018-05-24 16:40 | ED.RN ---
critical lab value calcium 6.[address] Fournier notified, no new orders
[2018-05-24 16:44] LABS: Lactic Acid 0.9 mmol/L (0.4-2.0)
[2018-05-24 16:56] LABS: Anisocytosis 1+; Macrocytosis 1+; Platelet Estimate MOD DEC (ADEQ); Platelet Morphology LARGE
--- NOTE | 2018-05-24 17:10 | NURSING ---
MED SURG GASTROENTERITIS [facility]
--- NOTE | 2018-05-24 17:19 | ED.DCSUM_ITS ---
- ER Visit Summary Date of Service: 05/24/18 Chief Complaint: [Vomiting and diarrhea] History of Present Illness: The patient is a 57 F [presents with vomiting and diarrhea that started in the middle of the night last night. Patient states she is thrown up about 4 times and has had 8 watery stools. Patient notices that when she wipes her bottom she has had small amount of blood. Patient describes some mild abdominal discomfort. Patient complains of generalized weakness and having a hard time ambulating secondary to weakness. Patient currently being treated for myelodysplastic syndrome and receives chemotherapy. Patient's last chemotherapy was 4 weeks ago. Patient had decreased appetite. She denies any fevers. Patient has had a cough for about a month. Patient not bringing up much phlegm.] Physical Examination: HEENT-PERRLA, EOMI. Cranial nerves II through XII grossly intact. TMs clear. Mucous membranes moist. No adenopathy. Cardiovascular-regular rate and rhythm without murmur or ectopy Lungs-clear to auscultation, chest wall stable without crepitus or subcu emphysema Abdomen-normoactive bowel sounds, soft. Mild diffuse tenderness. There is no rebound, rigidity, or perineal signs. Extremities-intact ?4, normal range of motion, normal pulses, atraumatic [] Test Results: [EKG obtained showed a sinus rhythm with some nonspecific ST changes. Patient has slightly prolonged QT. CBC with differential obtained showed a white count of 10.1, hemoglobin 10.5, hematocrit 32, plan 75. Chemistries unremarkable. Alk phos was 215 and ALT 17, AST 20. Chest x-ray obtained showed lower lung infiltrate or edema right greater than left. Lactate was normal at 0.9. Patient's calcium was low at 6.5.] Emergency Department Course and Treatment: [Patient received calcium and a liter normal same fluid bolus. Patient received Zofran.] Treatment Plan: Admit [] Disposition: [Admit] Impression: [Generalized weakness Gastroenteritis Hypocalcemia] This note was generated with [employer] dictation software. It may contain incorrect words, spelling, and punctuation that were not noted in review of the chart prior to signing ED Disposition - Plan for ED Patient: Chief Complaint: Nausea/Vomiting/Diarrhea Referrals: Hussain Reynolds MD [Primary Care Provider] -
--- NOTE | 2018-05-24 17:25 | PCM.HP.STD ---
<Grace Rivera - Last Filed: 05/24/18 17:57> Problem List (1) SIRS (systemic inflammatory response syndrome) Status: Resolved (2) Alcoholism Status: Chronic (3) Nicotine abuse Status: Chronic (4) Acute HI, subendocardial Status: Chronic (5) Hyperlipidemia Status: Chronic (6) Atherosclerotic heart disease of [place] coronary artery without angina pectoris Status: Chronic (7) UIP (usual interstitial pneumonitis) Status: Chronic Comment: suspected severe chronic changes on CT scan (8) Stroke, hemorrhagic Status: Chronic Comment: reportedly after a fall w head trauma (9) HTN (hypertension) Status: Chronic (10) MDS (myelodysplastic syndrome) Status: Chronic History of Present Illness Date of Admission: 05/24/18 Chief Complaint: Nausea, vomiting, diarrhea. The patient is a 57 year old F who presents the emergency room due to nausea, vomiting, diarrhea. Patient reports this began in the middle of the night. She has been able to keep down some liquids however has not been able to eat solid foods. She notes a small amount of blood when she wipes after diarrhea. Denies blood in stool. Patient notes diarrhea has occurred 8-10 times since onset. Patient states this has happened on and off since she has been on chemotherapy for MDS. She states her symptoms typically resolve on their own. Patient reports she has been very weak and lost weight recently. She reports falling frequently at home. Her at bedside reports patient falls almost daily. She has multiple abrasions and ecchymosis bilateral pleural and lower extremities. Patient reports she was taken off of chemo approximately 1 month ago due to her adverse side effects. Patient denies fever, chills. Denies exposure to sick contacts. Denies recent antibiotic use. Patient complains of associated generalized abdominal pain. Her past medical history includes MDS, hypertension, history of hemorrhagic stroke following head trauma, CAD, hyperlipidemia, history of alcoholism, nicotine dependence, COPD, anxiety, depression, GERD. Past Medical History Past Medical History (Chronic Problems): Chronic Problems (Last Updated 01/08/18 @ 13:22 by Rosalie Vickers) Alcoholism (Chronic) Nicotine abuse (Chronic) Acute HI, subendocardial (Chronic) Hyperlipidemia (Chronic) Atherosclerotic heart disease of [place] coronary artery without angina pectoris (Chronic) UIP (usual interstitial pneumonitis) (Chronic) suspected severe chronic changes on CT scan Stroke, hemorrhagic (Chronic) reportedly after a fall w head trauma HTN (hypertension) (Chronic) MDS (myelodysplastic syndrome) (Chronic) Medical History: Medical History (Last Updated 01/08/18 @ 13:22 by Rosalie Vickers) Alcoholism (Chronic) F10.20 Acute HI, subendocardial (Chronic) I21.4 Hyperlipidemia (Chronic) E78.5 Atherosclerotic heart disease of [place] coronary artery without angina pectoris (Chronic) I25.10 Stroke, hemorrhagic (Chronic) I61.9 reportedly after a fall w head trauma HTN (hypertension) (Chronic) I10 MDS (myelodysplastic syndrome) (Chronic) D46.9 Chronic interstitial lung disease J84.9 Renal failure N19 Seizure disorder G40.909 Allergies No Known Allergies Allergy (Verified 05/24/18 15:17) Home Medications: Ambulatory Orders Medication Instructions Recorded Gabapentin [Neurontin] 800 mg PO TIDCM 08/29/14 Lorazepam [Ativan] 0.5 mg PO BID PRN PRN 01/17/15 Sertraline HCl [Zoloft] 100 mg PO QHS 01/17/15 Multivitamins,Ther W-Minerals 1 tablet PO DAILY 09/20/15 [Multivitamin With Minerals] Nitroglycerin 0.4 mg SL PRN PRN 07/17/17 Omeprazole [Prilosec] 40 mg PO DAILY 07/17/17 Ergocalciferol [Vitamin D] 50,000 unit PO Q7D 05/24/18 Ondansetron [Zofran] 8 mg PO PRN PRN 05/24/18 Surgical History: Surgical History (Last Reviewed 05/24/18 @ 17:32 by FILIPPO Briggs) Hx of craniotomy Onset Date: ~2012 Z98.890 Hx of tubal ligation Z98.51 Surgical History: - - left chest port placement Psychiatric History: Anxiety, Depression Lives: Spouse/ Significant Other Smoking Status: Current some day smoker Alcohol: Sober Drugs: None - *Family History Maternal Family History: Family History (Last Reviewed 05/24/18 @ 17:36 by FILIPPO Briggs) Mother CAD (coronary artery disease) Brother Hypertension Atrial fibrillation History Items: Unknown Review of Systems Constitutional: Reports: Chills, Malaise, Weakness, Weight Change - continued weight loss.. Denies: Fever HEENT: Denies: Head Aches, Sinus Congestion, Sinus Drainage Cardiovascular: Denies: Chest Pain, Palpitations Respiratory: Denies: Cough, Shortness of breath at rest, Sputum production Gastrointestinal: Reports: Abdominal Pain, Diarrhea, Nausea, Vomiting. Denies: Hematemesis, Melena Genitourinary: Denies: Dysuria Musculoskeletal: Denies: Joint Pain, Joint Tenderness Skin: Reports: - - Multiple abrasions bilateral lower extremities due to fall.. Denies: Rash Neurological: Denies: Numbness, Tingling, Focal weakness Psychiatric: Reports: Anxiety, Depression Hematologic/ Lymphatic: Reports: Easy Bruising. Denies: Easy Bleeding VTE Information - Inpt Only VTE Present on Admission: No VTE Mechan Device Prophylaxis: SCD's VTE Pharm Prophylaxis ordered?: No Reason prophylaxis not ordered:: Medical Contraindication - Physical Exam General: Alert, Oriented x3, Cooperative, - - Ill-appearing, cachectic. HEENT: Atraumatic, PERRLA, EOMI, Normocephalic Oral: Dry Mucosa Neck: Supple, No JVD, Negative Carotid Bruits Lungs: Clear to auscultation, Diminished Cardiovascular: Regular Rhythm, Normal S1, Normal S2, No murmurs, Tachycardic Abdomen: Bowel Sounds Present, Soft, Non-Distended, Tender - generalized TTP Extremities: No clubbing, No cyanosis, No edema, Capillary Refill Less than 3 Seconds Skin: - - Multiple abrasions, scabbing and ecchymosis bilateral lower extremities and upper extremities. Patient reports these are secondary to frequent falls. Musculoskeletal: No Tenderness to Palpation of Joints or Extremities Neurological: Cranial nerves II-XII grossly intact, Neuro grossly intact Psych/Mental Status: Normal Affect, Appropriate Vital Signs Temp Pulse Resp BP Pulse Ox 98.5 F 110 H 20 H 114/75 98 05/24/18 15:17 05/24/18 15:17 05/24/18 15:17 05/24/18 15:17 05/24/18 15:17 Oxygen Delivery Method Room Air Weight: 80 lb Body Mass Index (BMI) 13.3 Laboratory Tests Past 24 Hrs 05/24/18 05/24/18 05/24/18 16:00 16:00 16:00 WBC 10.1 RBC 3.16 L Hgb 10.5 L Hct 32.3 L MCV 102.2 H MCH 33.2 H MCHC 32.5 RDW 17.0 H RDW Differential 62.3 H Plt Count 75 L MPV 10.7 Immature Gran % (Auto) 0.100 Neut % (Auto) 92.7 H Lymph % (Auto) 4.4 L [place] % (Auto) 2.6 Eos % (Auto) 0.1 Baso % (Auto) 0.1 Absolute Neuts (auto) 9.4 H Absolute Lymphs (auto) 0.44 L Total Counted Not Reportable Differential Comment SEE COMMENT Platelet Estimate MOD DEC Plt Morphology Comment LARGE Anisocytosis 1+ Macrocytosis 1+ Sodium 140 Potassium 4.4 Chloride 111 H Carbon Dioxide 20.0 L Anion Gap 9 BUN 11 Creatinine 0.67 Estim Creat Clear Calc 53.07 Est GFR (MDRD) Af Amer 117 Est GFR (MDRD) Non-Af 97 BUN/Creatinine Ratio 16.5 Glucose 78 Lactic Acid 0.9 Calcium 6.5 L* Total Bilirubin 0.40 AST 20 ALT 17 Alkaline Phosphatase 215 H Total Protein 6.9 Albumin 1.5 L Globulin 5.4 H Albumin/Globulin Ratio 0.3 L Assessment/Plan All Active Problems (Last Updated 01/08/18 @ 13:22 by Rosalie Vickers) SIRS (systemic inflammatory response syndrome) (Resolved) 1. Acute gastroenteritis-check stool for CDIFF. IV fluids. Zofran as needed for nausea. No fever, no leukocytosis. 2. Hypocalcemia-secondary to #1. Replaced in ER. Trend BMP. 3. Debility, frequent falls- reports falls almost daily at home. PT/OT. Fall precautions. consult for DC planning. 4. MDS- Follows with Dr. Cowan. Left chest port. Last chemo about 4 weeks ago. Consult oncology. 5. Severe protein calorie malnutrition, hypoalbuminemia-BMI 13.3. Consult nutrition/dietitian. 6. Hypertension-stable, not on regimen. 7. Hyperlipidemia-not on statin. 8. History of hemorrhagic CVA following head trauma due to fall 9. COPD/pulmonary fibrosis- 10. Anxiety/depression-continue home lorazepam and sertraline regimen. 11. GERD-continue PPI. 12. History of alcoholism 13. Tobacco dependence-encourage smoking cessation. Nicotine replacement patch if desired. DVT prophylaxis-SCDs This patient was seen by FILIPPO Briggs under the supervision of Dr. Carmona. <Connie Carmona Jinny - Last Filed: 05/24/18 19:26> History of Present Illness The patient is a 57 year old F [] Past Medical History Medical History: Medical History (Last Updated 01/08/18 @ 13:22 by Rosalie Vickers) Alcoholism (Chronic) F10.20 Acute HI, subendocardial (Chronic) I21.4 Hyperlipidemia (Chronic) E78.5 Atherosclerotic heart disease of [place] coronary artery without angina pectoris (Chronic) I25.10 Stroke, hemorrhagic (Chronic) I61.9 reportedly after a fall w head trauma HTN (hypertension) (Chronic) I10 MDS (myelodysplastic syndrome) (Chronic) D46.9 Chronic interstitial lung disease J84.9 Renal failure N19 Seizure disorder G40.909 Allergies No Known Allergies Allergy (Verified 05/24/18 15:17) Surgical History: Surgical History (Last Reviewed 05/24/18 @ 17:32 by FILIPPO Briggs) Hx of craniotomy Onset Date: ~2012 Z98.890 Hx of tubal ligation Z98.51 - *Family History Maternal Family History: Family History (Last Reviewed 05/24/18 @ 17:36 by FILIPPO Briggs) Mother CAD (coronary artery disease) Brother Hypertension Atrial fibrillation - Physical Exam Vital Signs Temp Pulse Resp BP Pulse Ox 98.5 F 110 H 20 H 114/75 98 05/24/18 15:17 05/24/18 15:17 05/24/18 15:17 05/24/18 15:17 05/24/18 15:17 Oxygen Delivery Method Room Air Weight: 80 lb Body Mass Index (BMI) 13.3 Laboratory Tests Past 24 Hrs 05/24/18 05/24/18 05/24/18 16:00 16:00 16:00 WBC 10.1 RBC 3.16 L Hgb 10.5 L Hct 32.3 L MCV 102.2 H MCH 33.2 H MCHC 32.5 RDW 17.0 H RDW Differential 62.3 H Plt Count 75 L MPV 10.7 Immature Gran % (Auto) 0.100 Neut % (Auto) 92.7 H Lymph % (Auto) 4.4 L [place] % (Auto) 2.6 Eos % (Auto) 0.1 Baso % (Auto) 0.1 Absolute Neuts (auto) 9.4 H Absolute Lymphs (auto) 0.44 L Total Counted Not Reportable Differential Comment SEE COMMENT Platelet Estimate MOD DEC Plt Morphology Comment LARGE Anisocytosis 1+ Macrocytosis 1+ Sodium 140 Potassium 4.4 Chloride 111 H Carbon Dioxide 20.0 L Anion Gap 9 BUN 11 Creatinine 0.67 Estim Creat Clear Calc 53.07 Est GFR (MDRD) Af Amer 117 Est GFR (MDRD) Non-Af 97 BUN/Creatinine Ratio 16.5 Glucose 78 Lactic Acid 0.9 Calcium 6.5 L* Total Bilirubin 0.40 AST 20 ALT 17 Alkaline Phosphatase 215 H Total Protein 6.9 Albumin 1.5 L Globulin 5.4 H Albumin/Globulin Ratio 0.3 L Assessment/Plan Patient seen by Grace BARKLEY under my supervision Patient is a 57 y/o female with a PMH of myelodysplastic syndrome, HTN, COPD, history of hemorrhagic CVA due to traumatic fall and debility. She was admitted via the ED on 05/24/18 with a complaint of diarrhea of 2-3 days and vomiting of one day's duration. Patient says she has chronic diarrhea, but it has worsened recently, with her having up to 8-9 watery stools daily, and she sees blood on wiping herself. She also started vomiting one day ago, with emesis being nonbloody. She also complained of a cough productive of scanty whitish sputum and chest pain associated with cough. She was diagnosed with MDS ~ 12 years ago and was getting monthly chemotherapy with Dr Cowan. However this was stopped last month because she had become so debilitated, and lost so much weight. She denies any fever but admits to chills, denies any urinary symptoms. mentioned that patient is very debilitated and falls daily at home; she has sustained numerous abrasions all over her lower extremities. o/e: Vital Signs Height 5 ft 5 in Weight: 80 lb Weight in Pounds 80.0 lbs Pulse Ox 98 Temperature 98.5 F Pulse Rate 110 Respiratory Rate 20 Blood Pressure 114/75 General: Alert, Oriented x3, Cooperative, - -patient appears much older than her age, very cachectic, looks chronically ill. HEENT: Atraumatic, PERRLA, EOMI, Normocephalic Oral: very Dry Mucosa Neck: Supple, No JVD, Negative Carotid Bruits Lungs: Clear to auscultation, Diminished breath sounds bibasally with a few crackles auscultated bibasally Cardiovascular: Regular Rhythm, Normal S1, Normal S2, No murmurs, Tachycardic Abdomen: Bowel Sounds Present, Soft, Non-Distended, generalised mild tenderness to palpation. Extremities: No clubbing, No cyanosis, No edema, Capillary Refill Less than 3 Seconds. chemo port in left chest Skin: - - Multiple abrasions, scabbing and ecchymosis bilateral lower extremities and upper extremities. Patient reports these are secondary to frequent falls. Musculoskeletal: No Tenderness to Palpation of Joints or Extremities Neurological: Cranial nerves II-XII grossly intact, Neuro grossly intact Psych/Mental Status: Normal Affect, Appropriate Assessment and plan 1. Gastroenteritis has had worsening diarrhea and vomiting for the past few days. Doesnt remember anyone eating the same food as she has having any diarrhea. sees some blood on wiping herself due to frequent diarrhea was tachycardic and tachypneic on admission labs showed bicarb of 20, with no anion gap. No leucocytosis admit to [facility] with telemetry resuscitate with IVF NS @ 150cc/hr. check C Diff defer on stool enteric pathogen test for now as symptoms are acute; to be considered if diarrhea persists IV zofran 2. Hypocalcemia serum calcium level was 6.5, corrected for albumin of 1.5, is 8.5 started on Oral calcium replacement in ED; will give one dose of IV calcium gluconate 2gram will check Mg as well 3. MDS diagnosed ~ 12 years ago was having monthly chemo with Dr Cowan; but this was halted last month o/a of patient's severely emaciated state and debility. Hb is 10.5 (macrocytic), and platelets-75, wbc is 10.1 to continue following up with hematology 4. SEvere debility with frequent falls fall precautions PT/OT consult amenable to placement in rehab temporarily. DVT prophylaxis: SCDs. No heparin o/a of thrombocytopenia and history of hemorrhagic CVA due to fall Code status: full code patient and counselled extensively about code status; counseled about different types of code status, DNRCC and DNRCCA. Patient elects to be full code. Total face to face time 16 mins Code Visit Inpatient E&M: 93100 Init Hosp L3 Procedures: 45369 Advncd Care Plan 30 Min
[2018-05-24 17:30] VITALS: BMI 13.3
--- NOTE | 2018-05-24 17:31 | HP.PCM_ITS ---
<Grace Rivera - Last Filed: 05/24/18 17:57> Problem List (1) SIRS (systemic inflammatory response syndrome) Status: Resolved (2) Alcoholism Status: Chronic (3) Nicotine abuse Status: Chronic (4) Acute [place], subendocardial Status: Chronic (5) Hyperlipidemia Status: Chronic (6) Atherosclerotic heart disease of [place] coronary artery without angina pectoris Status: Chronic (7) UIP (usual interstitial pneumonitis) Status: Chronic Comment: suspected severe chronic changes on CT scan (8) Stroke, hemorrhagic Status: Chronic Comment: reportedly after a fall w head trauma (9) HTN (hypertension) Status: Chronic (10) MDS (myelodysplastic syndrome) Status: Chronic History of Present Illness Date of Admission: 05/24/18 Chief Complaint: Nausea, vomiting, diarrhea. The patient is a 57 year old F who presents the emergency room due to nausea, vomiting, diarrhea. Patient reports this began in the middle of the night. She has been able to keep down some liquids however has not been able to eat solid foods. She notes a small amount of blood when she wipes after diarrhea. Denies blood in stool. Patient notes diarrhea has occurred 8-10 times since onset. Patient states this has happened on and off since she has been on chemotherapy for MDS. She states her symptoms typically resolve on their own. Patient reports she has been very weak and lost weight recently. She reports falling frequently at home. Her at bedside reports patient falls almost daily. She has multiple abrasions and ecchymosis bilateral pleural and lower extremities. Patient reports she was taken off of chemo approximately 1 month ago due to her adverse side effects. Patient denies fever, chills. Denies exposure to sick contacts. Denies recent antibiotic use. Patient complains of associated generalized abdominal pain. Her past medical history includes MDS, hypertension, history of hemorrhagic stroke following head trauma, CAD, hyperlipidemia, history of alcoholism, nicotine dependence, COPD, anxiety, depression, GERD. Past Medical History Past Medical History (Chronic Problems): Chronic Problems (Last Updated 01/08/18 @ 13:22 by Rosalie Vickers) Alcoholism (Chronic) Nicotine abuse (Chronic) Acute [place], subendocardial (Chronic) Hyperlipidemia (Chronic) Atherosclerotic heart disease of [place] coronary artery without angina pectoris (Chronic) UIP (usual interstitial pneumonitis) (Chronic) suspected severe chronic changes on CT scan Stroke, hemorrhagic (Chronic) reportedly after a fall w head trauma HTN (hypertension) (Chronic) MDS (myelodysplastic syndrome) (Chronic) Medical History: Medical History (Last Updated 01/08/18 @ 13:22 by Rosalie Vickers) Alcoholism (Chronic) F10.20 Acute [place], subendocardial (Chronic) I21.4 Hyperlipidemia (Chronic) E78.5 Atherosclerotic heart disease of [place] coronary artery without angina pectoris (Chronic) I25.10 Stroke, hemorrhagic (Chronic) I61.9 reportedly after a fall w head trauma HTN (hypertension) (Chronic) I10 MDS (myelodysplastic syndrome) (Chronic) D46.9 Chronic interstitial lung disease J84.9 Renal failure N19 Seizure disorder G40.909 Allergies No Known Allergies Allergy (Verified 05/24/18 15:17) Home Medications: Ambulatory Orders Medication Instructions Recorded Gabapentin [Neurontin] 800 mg PO TIDCM 08/29/14 Lorazepam [Ativan] 0.5 mg PO BID PRN PRN 01/17/15 Sertraline HCl [Zoloft] 100 mg PO QHS 01/17/15 Multivitamins,Ther W-Minerals 1 tablet PO DAILY 09/20/15 [Multivitamin With Minerals] Nitroglycerin 0.4 mg SL PRN PRN 07/17/17 Omeprazole [Prilosec] 40 mg PO DAILY 07/17/17 Ergocalciferol [Vitamin D] 50,000 unit PO Q7D 05/24/18 Ondansetron [Zofran] 8 mg PO PRN PRN 05/24/18 Surgical History: Surgical History (Last Reviewed 05/24/18 @ 17:32 by FILIPPO Briggs) Hx of craniotomy Onset Date: ~2012 Z98.890 Hx of tubal ligation Z98.51 Surgical History: - - left chest port placement Psychiatric History: Anxiety, Depression Lives: Spouse/ Significant Other Smoking Status: Current some day smoker Alcohol: Sober Drugs: None - *Family History Maternal Family History: Family History (Last Reviewed 05/24/18 @ 17:36 by FILIPPO Briggs) Mother CAD (coronary artery disease) Brother Hypertension Atrial fibrillation History Items: Unknown Review of Systems Constitutional: Reports: Chills, Malaise, Weakness, Weight Change - continued weight loss.. Denies: Fever HEENT: Denies: Head Aches, Sinus Congestion, Sinus Drainage Cardiovascular: Denies: Chest Pain, Palpitations Respiratory: Denies: Cough, Shortness of breath at rest, Sputum production Gastrointestinal: Reports: Abdominal Pain, Diarrhea, Nausea, Vomiting. Denies: Hematemesis, Melena Genitourinary: Denies: Dysuria Musculoskeletal: Denies: Joint Pain, Joint Tenderness Skin: Reports: - - Multiple abrasions bilateral lower extremities due to fall.. Denies: Rash Neurological: Denies: Numbness, Tingling, Focal weakness Psychiatric: Reports: Anxiety, Depression Hematologic/ Lymphatic: Reports: Easy Bruising. Denies: Easy Bleeding VTE Information - Inpt Only VTE Present on Admission: No VTE Mechan Device Prophylaxis: SCD's VTE Pharm Prophylaxis ordered?: No Reason prophylaxis not ordered:: Medical Contraindication - Physical Exam General: Alert, Oriented x3, Cooperative, - - Ill-appearing, cachectic. HEENT: Atraumatic, PERRLA, EOMI, Normocephalic Oral: Dry Mucosa Neck: Supple, No JVD, Negative Carotid Bruits Lungs: Clear to auscultation, Diminished Cardiovascular: Regular Rhythm, Normal S1, Normal S2, No murmurs, Tachycardic Abdomen: Bowel Sounds Present, Soft, Non-Distended, Tender - generalized TTP Extremities: No clubbing, No cyanosis, No edema, Capillary Refill Less than 3 Seconds Skin: - - Multiple abrasions, scabbing and ecchymosis bilateral lower extremities and upper extremities. Patient reports these are secondary to frequent falls. Musculoskeletal: No Tenderness to Palpation of Joints or Extremities Neurological: Cranial nerves II-XII grossly intact, Neuro grossly intact Psych/Mental Status: Normal Affect, Appropriate Vital Signs Temp Pulse Resp BP Pulse Ox 98.5 F 110 H 20 H 114/75 98 05/24/18 15:17 05/24/18 15:17 05/24/18 15:17 05/24/18 15:17 05/24/18 15:17 Oxygen Delivery Method Room Air Weight: 80 lb Body Mass Index (BMI) 13.3 Laboratory Tests Past 24 Hrs 05/24/18 05/24/18 05/24/18 16:00 16:00 16:00 WBC 10.1 RBC 3.16 L Hgb 10.5 L Hct 32.3 L MCV 102.2 H MCH 33.2 H MCHC 32.5 RDW 17.0 H RDW Differential 62.3 H Plt Count 75 L MPV 10.7 Immature Gran % (Auto) 0.100 Neut % (Auto) 92.7 H Lymph % (Auto) 4.4 L Coal % (Auto) 2.6 Eos % (Auto) 0.1 Baso % (Auto) 0.1 Absolute Neuts (auto) 9.4 H Absolute Lymphs (auto) 0.44 L Total Counted Not Reportable Differential Comment SEE COMMENT Platelet Estimate MOD DEC Plt Morphology Comment LARGE Anisocytosis 1+ Macrocytosis 1+ Sodium 140 Potassium 4.4 Chloride 111 H Carbon Dioxide 20.0 L Anion Gap 9 BUN 11 Creatinine 0.67 Estim Creat Clear Calc 53.07 Est GFR (MDRD) Af Amer 117 Est GFR (MDRD) Non-Af 97 BUN/Creatinine Ratio 16.5 Glucose 78 Lactic Acid 0.9 Calcium 6.5 L* Total Bilirubin 0.40 AST 20 ALT 17 Alkaline Phosphatase 215 H Total Protein 6.9 Albumin 1.5 L Globulin 5.4 H Albumin/Globulin Ratio 0.3 L Assessment/Plan All Active Problems (Last Updated 01/08/18 @ 13:22 by Rosalie Vickers) SIRS (systemic inflammatory response syndrome) (Resolved) 1. Acute gastroenteritis-check stool for CDIFF. IV fluids. Zofran as needed for nausea. No fever, no leukocytosis. 2. Hypocalcemia-secondary to #1. Replaced in ER. Trend BMP. 3. Debility, frequent falls- reports falls almost daily at home. PT/OT. Fall precautions. consult for DC planning. 4. MDS- Follows with Dr. Cowan. Left chest port. Last chemo about 4 weeks ago. Consult oncology. 5. Severe protein calorie malnutrition, hypoalbuminemia-BMI 13.3. Consult nutrition/dietitian. 6. Hypertension-stable, not on regimen. 7. Hyperlipidemia-not on statin. 8. History of hemorrhagic CVA following head trauma due to fall 9. COPD/pulmonary fibrosis- 10. Anxiety/depression-continue home lorazepam and sertraline regimen. 11. GERD-continue PPI. 12. History of alcoholism 13. Tobacco dependence-encourage smoking cessation. Nicotine replacement patch if desired. DVT prophylaxis-SCDs This patient was seen by FILIPPO Briggs under the supervision of Dr. Carmona. <Connie Carmona Jinny - Last Filed: 05/24/18 19:26> History of Present Illness The patient is a 57 year old F [] Past Medical History Medical History: Medical History (Last Updated 01/08/18 @ 13:22 by Rosalie Vickers) Alcoholism (Chronic) F10.20 Acute [place], subendocardial (Chronic) I21.4 Hyperlipidemia (Chronic) E78.5 Atherosclerotic heart disease of [place] coronary artery without angina pectoris (Chronic) I25.10 Stroke, hemorrhagic (Chronic) I61.9 reportedly after a fall w head trauma HTN (hypertension) (Chronic) I10 MDS (myelodysplastic syndrome) (Chronic) D46.9 Chronic interstitial lung disease J84.9 Renal failure N19 Seizure disorder G40.909 Allergies No Known Allergies Allergy (Verified 05/24/18 15:17) Surgical History: Surgical History (Last Reviewed 05/24/18 @ 17:32 by FILIPPO Briggs) Hx of craniotomy Onset Date: ~2012 Z98.890 Hx of tubal ligation Z98.51 - *Family History Maternal Family History: Family History (Last Reviewed 05/24/18 @ 17:36 by FILIPPO Briggs) Mother CAD (coronary artery disease) Brother Hypertension Atrial fibrillation - Physical Exam Vital Signs Temp Pulse Resp BP Pulse Ox 98.5 F 110 H 20 H 114/75 98 05/24/18 15:17 05/24/18 15:17 05/24/18 15:17 05/24/18 15:17 05/24/18 15:17 Oxygen Delivery Method Room Air Weight: 80 lb Body Mass Index (BMI) 13.3 Laboratory Tests Past 24 Hrs 05/24/18 05/24/18 05/24/18 16:00 16:00 16:00 WBC 10.1 RBC 3.16 L Hgb 10.5 L Hct 32.3 L MCV 102.2 H MCH 33.2 H MCHC 32.5 RDW 17.0 H RDW Differential 62.3 H Plt Count 75 L MPV 10.7 Immature Gran % (Auto) 0.100 Neut % (Auto) 92.7 H Lymph % (Auto) 4.4 L Coal % (Auto) 2.6 Eos % (Auto) 0.1 Baso % (Auto) 0.1 Absolute Neuts (auto) 9.4 H Absolute Lymphs (auto) 0.44 L Total Counted Not Reportable Differential Comment SEE COMMENT Platelet Estimate MOD DEC Plt Morphology Comment LARGE Anisocytosis 1+ Macrocytosis 1+ Sodium 140 Potassium 4.4 Chloride 111 H Carbon Dioxide 20.0 L Anion Gap 9 BUN 11 Creatinine 0.67 Estim Creat Clear Calc 53.07 Est GFR (MDRD) Af Amer 117 Est GFR (MDRD) Non-Af 97 BUN/Creatinine Ratio 16.5 Glucose 78 Lactic Acid 0.9 Calcium 6.5 L* Total Bilirubin 0.40 AST 20 ALT 17 Alkaline Phosphatase 215 H Total Protein 6.9 Albumin 1.5 L Globulin 5.4 H Albumin/Globulin Ratio 0.3 L Assessment/Plan Patient seen by Grace BARKLEY under my supervision Patient is a 57 y/o female with a PMH of myelodysplastic syndrome, HTN, COPD, history of hemorrhagic CVA due to traumatic fall and debility. She was admitted via the ED on 05/24/18 with a complaint of diarrhea of 2-3 days and vomiting of one day's duration. Patient says she has chronic diarrhea, but it has worsened recently, with her having up to 8-9 watery stools daily, and she sees blood on wiping herself. She also started vomiting one day ago, with emesis being nonbloody. She also complained of a cough productive of scanty whitish sputum and chest pain associated with cough. She was diagnosed with MDS ~ 12 years ago and was getting monthly chemotherapy with Dr Cowan. However this was stopped last month because she had become so debilitated, and lost so much weight. She denies any fever but admits to chills, denies any urinary symptoms. mentioned that patient is very debilitated and falls daily at home; she has sustained numerous abrasions all over her lower extremities. o/e: Vital Signs Height 5 ft 5 in Weight: 80 lb Weight in Pounds 80.0 lbs Pulse Ox 98 Temperature 98.5 F Pulse Rate 110 Respiratory Rate 20 Blood Pressure 114/75 General: Alert, Oriented x3, Cooperative, - -patient appears much older than her age, very cachectic, looks chronically ill. HEENT: Atraumatic, PERRLA, EOMI, Normocephalic Oral: very Dry Mucosa Neck: Supple, No JVD, Negative Carotid Bruits Lungs: Clear to auscultation, Diminished breath sounds bibasally with a few crackles auscultated bibasally Cardiovascular: Regular Rhythm, Normal S1, Normal S2, No murmurs, Tachycardic Abdomen: Bowel Sounds Present, Soft, Non-Distended, generalised mild tenderness to palpation. Extremities: No clubbing, No cyanosis, No edema, Capillary Refill Less than 3 Seconds. chemo port in left chest Skin: - - Multiple abrasions, scabbing and ecchymosis bilateral lower extremities and upper extremities. Patient reports these are secondary to frequent falls. Musculoskeletal: No Tenderness to Palpation of Joints or Extremities Neurological: Cranial nerves II-XII grossly intact, Neuro grossly intact Psych/Mental Status: Normal Affect, Appropriate Assessment and plan 1. Gastroenteritis * has had worsening diarrhea and vomiting for the past few days. Doesnt remember anyone eating the same food as she has having any diarrhea. * sees some blood on wiping herself due to frequent diarrhea * was tachycardic and tachypneic on admission * labs showed bicarb of 20, with no anion gap. No leucocytosis * admit to [facility] with telemetry * resuscitate with IVF NS @ 150cc/hr. * check C Diff * defer on stool enteric pathogen test for now as symptoms are acute; to be considered if diarrhea persists * IV zofran * 2. Hypocalcemia * serum calcium level was 6.5, corrected for albumin of 1.5, is 8.5 * started on Oral calcium replacement in ED; will give one dose of IV calcium gluconate 2gram * will check Mg as well * 3. MDS * diagnosed ~ 12 years ago * was having monthly chemo with Dr Cowan; but this was halted last month o/a of patient's severely emaciated state and debility. * Hb is 10.5 (macrocytic), and platelets-75, wbc is 10.1 * to continue following up with hematology * 4. SEvere debility with frequent falls * fall precautions * PT/OT consult * amenable to placement in rehab temporarily. * DVT prophylaxis: SCDs. No heparin o/a of thrombocytopenia and history of hemorrhagic CVA due to fall Code status: full code * patient and counselled extensively about code status; counseled about different types of code status, DNRCC and DNRCCA. Patient elects to be full code. Total face to face time 16 mins Code Visit Inpatient E&M: 21762 Init Hosp L3 Procedures: 61840 Advncd Care Plan 30 Min
[2018-05-24] MEDS: Calcium Carbonate 500 MG Tablet 1000 MG PO (17:43)
[2018-05-24 18:08] VITALS: BMI 14.0
[2018-05-24] MEDS: 0.9% Normal Saline 1,000 ML 150 ML IV (18:27)
[2018-05-24 18:35] VITALS: PULSE 113
[2018-05-24 19:31] VITALS: PULSE 108
[2018-05-24 20:16] VITALS: BP 153/88; PULSE 94; RESP 18; TEMP 36.3; O2SAT 97
[2018-05-24 20:54] LABS: Magnesium 1.8 mg/dL (1.6-2.6)
[2018-05-24] MEDS: LORazepam 0.5 MG Tablet PO (21:51)
[2018-05-24 22:50] VITALS: PULSE 121
[2018-05-24 23:03] VITALS: PULSE 141
[2018-05-24] MEDS: 0.9% Normal Saline 1,000 ML 999 ML IV (23:23)
[2018-05-24 23:58] LABS: Phosphorus 2.4 mg/dL (2.5-4.9)
[2018-05-25] VITALS (12 sets, daily range): BP systolic 117–158; BP diastolic 79–99; PULSE 87–113; RESP 18–22; TEMP 36.3–37.7; O2SAT 94–98
[2018-05-25 00:17] LABS: Bacteria 0 SEEN /hpf (None Seen); Mucous, Urine 0 SEEN /hpf (<or=2+); Red Blood Cells-Urine 0 SEEN /hpf (0-5); Squamous Epithelial Cells - UA 0 SEEN /hpf (5-10); White Blood Cells 0 SEEN /hpf (0-5)
[2018-05-25 00:23] LABS: Glucose, Dipstick Normal (Normal); Ketone-Dipstick Negative (Negative); Leukocyte Esterase-Dipstick 25 /ul (Negative); Nitrite-Dipstick Negative (Negative); Occult Blood-Urine Negative /ul (Negative); Protein-Dipstick Negative (Negative); Specific Gravity, Urine 1.015 (1.002-1.030); Urine Bilirubin Dipstick Negative (Negative); Urine Urobilinogen Normal (Normal)
[2018-05-25 00:27] LABS: Color, Urine Yellow (Yellow); Urine Clarity Clear (Clear)
[2018-05-25] MEDS: 0.9% Normal Saline 1,000 ML 150 ML IV ×4 (00:35→21:45)
[2018-05-25 06:02] LABS: Absolute Lymphocyte Count 0.38 X10^3/ul (0.83-4.51); Absolute Neutrophil Count 6.2 X10^3/uL (2.0-7.7); Basophil# 0.01 X10^3/uL; Basophil% 0.1 % (0-1); Eosinophil# 0.01 X10^3/uL; Eosinophils% 0.1 % (0-5); Hematocrit 25.4 % (37-47); Hemoglobin 8.4 g/dl (12.0-15.0); Lymphocyte # 0.38 X10^3/ul (4.0); Lymphocyte % 5.6 % (19-41); Mean Corp Hgb Conc 33.1 g/gl (32-36); Mean Corpuscular Hgb 33.7 pg (27.0-32.0); Mean Platelet Vol. 10.9 fl (6.2-12.0); Monocyte# 0.22 X10^3/uL; Monocyte% 3.2 % (0-10); Neutrophil % 90.9 % (47-70); Platelet Count 68 K/mm3 (150-450); RBC Distribution Width CV 16.8 % (11.6-14.6); RBC Distribution Width SD 60.7 fl (35.1-43.9); Red Blood Count 2.49 M/mm3 (4.2-5.4); White Blood Count 6.8 K/mm3 (4.4-11.0)
[2018-05-25 06:05] LABS: Differential Indicated SCAN CRITERIA MET; POSITIVE COUNT NO; POSITIVE DIFFERENTIAL YES; POSITIVE MORPHOLOGY NO
[2018-05-25 06:07] LABS: Anion Gap 9 (5-15); BUN 6 mg/dL (7-18); BUN/Creat Ratio 11.7 RATIO (10-20); Calcium,Total 6.2 mg/dL (8.5-10.1); Chloride 113 mmol/L (98-107); Creatinine, Serum 0.51 mg/dL (0.55-1.02); EST Glomerular Filtration Rate 131 mL/min (>60); Est Glom Filt Rate - Afr Amer 159 mL/min (>60); Estimated Creatinine Clearance 73.38 ml/min; Glucose 75 mg/dL (74-106); Potassium 3.7 mmol/L (3.5-5.1); Sodium Level 141 mmol/L (136-145)
--- NOTE | 2018-05-25 07:59 | CT_ITS ---
STUDY: CT ABDOMEN AND PELVIS WITH CONTRAST REASON FOR EXAM: Female, 57 years old. Gastroenteritis RADIATION DOSAGE (If Supplied By Facility): CTDIvol = ( 7.15 ) mGy, DLP = ( 207.54 ) mGycm TECHNIQUE: Transaxial images were obtained from the dome of the diaphragm to the symphysis pubis with oral contrast. 75 ml of Isovue 300 contrast was administered. Sagittal and coronal images were reconstructed. Individualized dose optimization techniques were used for this CT. COMPARISON: None. FINDINGS: There are chronic interstitial fibrotic changes of the lung bases. Left lower lung airspace consolidation. There is left lower lung granuloma. The visualized portions of the heart are within normal limits. No dominant mass of the liver. The gallbladder is contracted. There are multiple benign calcified granulomata of the liver and spleen. Normal pancreas. Normal bilateral adrenal glands. Normal right kidney. Normal left kidney. Wall thickening of the distal stomach. Normal small intestine. Normal colon. The appendix is visualized and appears normal. There is diffuse atherosclerotic calcification of the abdominal aorta, without a demonstrated aneurysm. Normal inferior vena cava. Normal retroperitoneum. Normal urinary bladder. There is atrophy of the uterus. Normal abdominal wall. There is L3 compression fracture with 80% loss of height CT/Abdomen/Pelvis WITH Contrast IMPRESSION: Wall thickening of the distal stomach with gastritis versus ulcer disease. No obstruction. L3 compression fracture. Fibrotic densities with left lower lung airspace consolidation. Electronically Signed: William Ann MD at 11:46 EDT , Service support ,
--- NOTE | 2018-05-25 08:09 | PN_ITS ---
Patient Problems: Active and Suspected Problems (Last Updated 01/08/18 @ 13:22 by Rosalie Vickers) Abdominal pain, vomiting, and diarrhea (Acute) Subjective: Patient is a 57-year-old lady with history of myelodysplastic syndrome who is been on treatment for the past 8 years last chemo being a month prior to admission who presented with abdominal cramping associated with diarrhea. An assessment of suspected colitis made admitted to regular nursing floor for further management. 05/25/2018: Patient seen still complains of abdominal cramping with associated diarrhea calcium significantly low at 6.0 CT of the abdomen and pelvis with contrast ordered for further evaluation. Case was also discussed with patient's oncologist Dr. Shon Cadena Objective: GENERAL: cachectic HEENT: Atraumatic; moist oral mucosa EYES; Anicteric, Normal Conjunctiva NECK; supple, normal thyroid, no distended JVD. RESPIRATORY: Diminished to auscultation bilaterally, CARDIOVASCULAR: Regular S1 S2, no audible murmurs GI: soft, non-tender, normoactive bowel sounds, : No Renal angle tenderness; No reis EXTREMITIES: No edema, no clubbing, no cyanosis. MUSCULOSKELTAL: No Joint Tenderness; no muscle waisting NEURO: Awake; no lateralizing signs. SKIN: Dry PSYCH; Normal affect Vitals/I&O's: Vital Signs Temp Pulse Resp BP Pulse Ox 98.6 F 100 18 144/81 H 94 05/25/18 02:17 05/25/18 04:19 05/25/18 02:17 05/25/18 02:17 05/25/18 02:17 Oxygen Delivery Method Room Air Weight: 38.192 kg Body Mass Index (BMI) 14.0 Intake and Output for Last 24 Hours 05/23/18 05/24/18 05/25/18 23:59 23:59 23:59 Intake Total 2790 / 2790 Output Total 1600 / 1600 Balance 1190 / 1190 Microbiology Past 72 Hours 05/24/18 20:54 Stool C. difficile DNA Amplification - Final Laboratory Results 05/24/18 00:08: Urine Color Yellow, Urine Clarity Clear, Urine pH 6.0, Ur Specific Charlo 1.015, Urine Protein Negative, Urine Glucose (UA) Normal, Urine Ketones Negative, Urine Occult Blood Negative, Urine Nitrite Negative, Urine Bilirubin Negative, Urine Urobilinogen Normal, Ur Leukocyte Esterase 25 H, Urine RBC 0 SEEN, Urine WBC 0 SEEN, Ur Squamous Epith Cells 0 SEEN, Urine Bacteria 0 SEEN, Urine Mucus 0 SEEN 05/24/18 16:00: WBC 10.1, RBC 3.16 L, Hgb 10.5 L, Hct 32.3 L, MCV 102.2 H, MCH 33.2 H, MCHC 32.5, RDW 17.0 H, RDW Differential 62.3 H, Plt Count 75 L, MPV 10.7, Immature Gran % (Auto) 0.100, Neut % (Auto) 92.7 H, Lymph % (Auto) 4.4 L, Jessamine % (Auto) 2.6, Eos % (Auto) 0.1, Baso % (Auto) 0.1, Absolute Neuts (auto) 9.4 H, Absolute Lymphs (auto) 0.44 L, Total Counted Not Reportable, Differential Comment SEE COMMENT, Platelet Estimate MOD DEC, Plt Morphology Comment LARGE, A nisocytosis 1+, Macrocytosis 1+ 05/24/18 16:00: Sodium 140, Potassium 4.4, Chloride 111 H, Carbon Dioxide 20.0 L , Anion Gap 9, BUN 11, Creatinine 0.67, Estim Creat Clear Calc 53.07, Est GFR (MDRD) Af Amer 117, Est GFR (MDRD) Non-Af 97, BUN/Creatinine Ratio 16.5, Glucose 78, Calcium 6.5 L*, Total Bilirubin 0.40, AST 20, ALT 17, Alkaline Phosphatase 215 H, Total Protein 6.9, Albumin 1.5 L, Globulin 5.4 H, Albumin/Globulin Ratio 0.3 L 05/24/18 16:00: Lactic Acid 0.9 05/24/18 16:00: Magnesium 1.8 05/24/18 16:00: Phosphorus 2.4 L 05/25/18 05:28: WBC 6.8, RBC 2.49 L, Hgb 8.4 L, Hct 25.4 L, MCV 102.0 H, MCH 33.7 H, MCHC 33.1, RDW 16.8 H, RDW Differential 60.7 H, Plt Count 68 L, MPV 10.9, Immature Gran % (Auto) 0.100, Neut % (Auto) 90.9 H, Lymph % (Auto) 5.6 L, Jessamine % (Auto) 3.2, Eos % (Auto) 0.1, Baso % (Auto) 0.1, Absolute Neuts (auto) 6.2, Absolute Lymphs (auto) 0.38 L, Total Counted Not Reportable 05/25/18 05:28: Sodium 141, Potassium 3.7, Chloride 113 H, Carbon Dioxide 19.0 L , Anion Gap 9, BUN 6 L, Creatinine 0.51 L, Estim Creat Clear Calc 73.38, Est GFR (MDRD) Af Amer 159, Est GFR (MDRD) Non-Af 131, BUN/Creatinine Ratio 11.7, Glucose 75, Calcium 6.2 L* Current Medications Calcium Carbonate (Tums) 1,000 mg PO DAILY@0800 [facility] Last Admin: 05/24/18 17:43 Dose: 1,000 mg Ergocalciferol (Vitamin D) 50,000 unit PO Q7D [facility] Gabapentin (Neurontin) 800 mg PO TIDCM [facility] Heparin Sodium (Beef Lung) (Heparin 500 Unit/5 Ml (100/Ml)) 500 unit IV UD PRN PRN Reason: HEPARIN FLUSH Sodium Chloride () 1,000 mls @ 150 mls/hr IV .Q6H40M [facility] Last Admin: 05/25/18 06:40 Dose: 150 mls/hr Calcium Gluconate 2 gm/ (Dextrose) 120 mls @ 60 mls/hr IV X1 ONE Stop: 05/25/18 08:59 Lorazepam (Ativan) 0.5 mg PO BID [facility] Last Admin: 05/24/18 21:51 Dose: 0.5 mg Multivitamins/Minerals ([facility]) [facility] Nutritional Formula (Lactose Free) (Ensure Clear) 120 ml PO 4X/DAY [facility] Last Admin: 05/24/18 21:54 Dose: 120 ml Ondansetron HCl (Zofran) 4 mg IV Q6H PRN PRN PRN Reason: NAUSEA Pantoprazole Sodium (Protonix) 40 mg PO DAILY [facility] Potassium Phos/Sodium Phos (Neutra-Phos Packet) 1 packet PO 4X/DAY [facility] Sertraline HCl (Zoloft) 100 mg PO DAILY [facility] Sodium Chloride () 10 ml IV UD PRN PRN Reason: VAD FLUSH Medical Necessity - Tobacco Use Smoking Status: Current some day smoker Tobacco Use: Cigarettes Assessment/Plan All Active Problems (Last Updated 01/08/18 @ 13:22 by Rosalie Vickers) Abdominal pain, vomiting, and diarrhea (Acute) SIRS (systemic inflammatory response syndrome) (Resolved) Patient is a 57-year-old lady with history of myelodysplastic syndrome who is been on treatment for the past 8 years last chemo being a month prior to admission who presented with abdominal cramping associated with diarrhea. An a ssessment of suspected colitis made admitted to regular nursing floor for further management. 1. Acute colitis ruling out infectious etiologies stool for C. difficile came back negative other enteric pathogen panel pending. CT of the abdomen with pelvis ordered for subsequent evaluation. Patient empirically started on Cipro and Flagyl 2. Severe protein calorie malnutrition with BMI of 14 and hypoalbuminemia. Nutritional consultation obtained 3. Hypercalcemia attributed to patient's severe help of anemia being replaced 4. Myelodysplastic syndrome patient is followed by Dr. Cabrera as outpatient on chemo 5. Pulmonary fibrosis 6. Hypertension-blood pressure controlled, currently not on any medications 7. 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 Tobacco dependence counseled on cessation, offered nicotine patch for tobacco cravings 9. Chronic alcohol abuse counseled on cessation 10. Depression with anxiety 11. Anemia secondary to anemia as a result of myelodysplastic syndrome monitoring H&H with plan to transfuse patient become symptomatic or hemoglobin falls below 7 12. Dyslipidemia 13. DVT prophylaxis SCDs Active Medications Calcium Carbonate (Tums) 1,000 mg PO DAILY@0800 [facility] Last Admin: 05/24/18 17:43 Dose: 1,000 mg Ciprofloxacin HCl (Cipro) 500 mg PO BID [facility] Ergocalciferol (Vitamin D) 50,000 unit PO Q7D [facility] Gabapentin (Neurontin) 800 mg PO TIDCM [facility] Heparin Sodium (Beef Lung) (Heparin 500 Unit/5 Ml (100/Ml)) 500 unit IV UD PRN PRN Reason: HEPARIN FLUSH Sodium Chloride () 1,000 mls @ 150 mls/hr IV .Q6H40M [facility] Last Admin: 05/25/18 06:40 Dose: 150 mls/hr Lorazepam (Ativan) 0.5 mg PO BID [facility] Last Admin: 05/24/18 21:51 Dose: 0.5 mg Metronidazole (Flagyl) 500 mg PO 4X/DAYCM [facility] Multivitamins/Minerals (Multivitamin With Minerals) 1 tablet PO DAILYCM [facility] Nutritional Formula (Lactose Free) (Ensure Clear) 120 ml PO 4X/DAY [facility] Last Admin: 05/24/18 21:54 Dose: 120 ml Ondansetron HCl (Zofran) 4 mg IV Q6H PRN PRN PRN Reason: NAUSEA Last Admin: 05/25/18 08:21 Dose: 4 mg Pantoprazole Sodium (Protonix) 40 mg PO DAILY [facility] Potassium Phos/Sodium Phos (Neutra-Phos Packet) 1 packet PO 4X/DAY [facility] Sertraline HCl (Zoloft) 100 mg PO DAILY [facility] Sodium Chloride () 10 ml IV UD PRN PRN Reason: VAD FLUSH Clinical Impression(s) from Imaging Studies Chest X-Ray 05/24/18 15:44 IMPRESSION: Lower lung infiltrates or edema on the left more than the right Electronically Signed: William Ann MD at 16:13 EDT , Service support , Code Visit Inpatient E&M: 97493 Subs Hosp L3
[2018-05-25] MEDS: Ondansetron 4 MG/2 ML Vial IV (08:21)
--- NOTE | 2018-05-25 09:05 | PCM.CONS.B ---
Problem List (1) Abdominal pain, vomiting, and diarrhea Status: Acute (2) MDS (myelodysplastic syndrome), low grade Status: Chronic - Consult Date of Consult: 05/25/18 - Reason for Consult HPI: The patient is a 57-year-old female who was diagnosed with low-grade mild dysplastic syndrome a number of years ago. For the last 8 years she's been receiving by days of once a month with good palliative effect and decrease in transfusion requirement. Recently chemotherapy was discontinued about a month ago secondary to loss of response. She received a red blood cell transfusion about 2 weeks ago. She is admitted for diarrhea. Her last 3-4 days she's had about 6-8 watery bowel movements a day and yesterday she started seeing some blood in the bowel movements. She is abdominal pain and cramping when she has to have a bowel movement. She also had nausea and 3 episodes of vomiting yesterday. No fever. CT scan abdomen and pelvis done outpatient 05/09/2018 revealed mild thickening of a portion of the sigmoid colon suggestive of possible colitis. there was no obvious adjacent fluid or fat stranding or gas bubbles.Otherwise compression fracture of L3 was noted.hospice was discussed with the patient last week. Allergies No Known Allergies Allergy (Verified 05/24/18 15:17) Current Medications Calcium Carbonate (Tums) 1,000 mg PO DAILY@0800 [facility] Last Admin: 05/24/18 17:43 Dose: 1,000 mg Ciprofloxacin HCl (Cipro) 500 mg PO BID [facility] Ergocalciferol (Vitamin D) 50,000 unit PO Q7D [facility] Gabapentin (Neurontin) 800 mg PO TIDCM [facility] Heparin Sodium (Beef Lung) (Heparin 500 Unit/5 Ml (100/Ml)) 500 unit IV UD PRN PRN Reason: HEPARIN FLUSH Sodium Chloride () 1,000 mls @ 150 mls/hr IV .Q6H40M [facility] Last Admin: 05/25/18 06:40 Dose: 150 mls/hr Lorazepam (Ativan) 0.5 mg PO BID [facility] Last Admin: 05/24/18 21:51 Dose: 0.5 mg Metronidazole (Flagyl) 500 mg PO 4X/DAYCM [facility] Multivitamins/Minerals (Multivitamin With Minerals) 1 tablet PO DAILYCM [facility] Nutritional Formula (Lactose Free) (Ensure Clear) 120 ml PO 4X/DAY [facility] Last Admin: 05/24/18 21:54 Dose: 120 ml Ondansetron HCl (Zofran) 4 mg IV Q6H PRN PRN PRN Reason: NAUSEA Last Admin: 05/25/18 08:21 Dose: 4 mg Pantoprazole Sodium (Protonix) 40 mg PO DAILY [facility] Potassium Phos/Sodium Phos (Neutra-Phos Packet) 1 packet PO 4X/DAY [facility] Sertraline HCl (Zoloft) 100 mg PO DAILY [facility] Sodium Chloride () 10 ml IV UD PRN PRN Reason: VAD FLUSH ROS Constitutional: generalized fatigue with decreased appetite. Neuro: frequent imbalance and several falls recently. HEENT: No recent change in voice, vision or hearing. Resp: Denies shortness of breath at rest. CVS: Denies exertional chest pain, PND, orthopnea and LE edema. palpitations just today. GI: Denies dysgeusia. Denies symptoms of stomatitis. Denies dysphagia and odynophagia. : Denies dysuria or gross hematuria. No symptoms of bladder outlet obstruction. Endo: Denies hot flashes. Denies polyuria and polydipsia. Denies heat and cold intolerance. Musculoskeletal: Denies bone, back, joint and muscular pain. Derm: Denies rash. Denies jaundice and diffuse pruritis. Heme: easy bruising. Psych: Normal mood. PHYSICAL EXAM: Vitals: Vital Signs Temp 98.6 F 05/25/18 02:17 Pulse 101 H 05/25/18 08:39 Resp 18 05/25/18 02:17 BP 144/81 H 05/25/18 02:17 Pulse Ox 94 05/25/18 02:17 Intake & Output 05/23/18 05/24/18 05/25/18 23:59 23:59 23:59 Intake Total 2790 / 2790 Output Total 1600 / 1600 Balance 1190 / 1190 Weight: 38.192 kg Intake: Oral 420 / 420 IV fluid/meds 2370 / 2370 Output: Urine 100 / 100 Urine/Stool Mix 1500 / 1500 Other: Number of Voids 3 Thin-appearing and in no acute distress. EYES: Sclerae are anicteric bilaterally. NECK: Supple. LYMPHATIC: There is no palpable cervical, supraclavicular, axillary adenopathy. RESPIRATORY: Inspiratory breath sounds are of diminished intensity in all mcpherson. CARDIOVASCULAR: Rhythm is regular. Normal intensity S1/S2. ABDOMEN: The abdomen is nondistended. No organomegaly. Slight diffuse tenderness. Extremities: No swelling or edema. SKIN: No jaundice or rash. multiple scattered ecchymoses. NEUROLOGIC: woodworking machinist II-XII are grossly intact. ASSESSMENT/PLAN: 1) Diarrhea. Assessment: -Chronic and recurrent issues. -C diff negative and enteric pathogen panel pending. -CT from [facility] reviewed--Only small area thickening sigmoid colon. Plan: -IVFs. -Agree repeat CT A/P. -Empiric therapy for diverticulitis. 2) MDS. Assessment: -Long standing issue. -evidently recent loss of effect of Vidaza. -?Nutritional deficiencies contributing. Plan: -Transfuse RBCs if Hgb under 8 g/dl. Does not need CMV negative or irradiated blood products.
--- NOTE | 2018-05-25 09:15 | CON.PCM_ITS ---
Problem List (1) Abdominal pain, vomiting, and diarrhea Status: Acute (2) MDS (myelodysplastic syndrome), low grade Status: Chronic - Consult Date of Consult: 05/25/18 - Reason for Consult HPI: The patient is a 57-year-old female who was diagnosed with low-grade mild dysplastic syndrome a number of years ago. For the last 8 years she's been receiving by days of once a month with good palliative effect and decrease in transfusion requirement. Recently chemotherapy was discontinued about a month ago secondary to loss of response. She received a red blood cell transfusion about 2 weeks ago. She is admitted for diarrhea. Her last 3-4 days she's had about 6-8 watery bowel movements a day and yesterday she started seeing some blood in the bowel movements. She is abdominal pain and cramping when she has to have a bowel movement. She also had nausea and 3 episodes of vomiting yesterday. No fever. CT scan abdomen and pelvis done outpatient 05/09/2018 revealed mild thickening of a portion of the sigmoid colon suggestive of possible colitis. there was no obvious adjacent fluid or fat stranding or gas bubbles.Otherwise compression fracture of L3 was noted.hospice was discussed with the patient last week. Allergies No Known Allergies Allergy (Verified 05/24/18 15:17) Current Medications Calcium Carbonate (Tums) 1,000 mg PO DAILY@0800 [facility] Last Admin: 05/24/18 17:43 Dose: 1,000 mg Ciprofloxacin HCl (Cipro) 500 mg PO BID [facility] Ergocalciferol (Vitamin D) 50,000 unit PO Q7D [facility] Gabapentin (Neurontin) 800 mg PO TIDCM [facility] Heparin Sodium (Beef Lung) (Heparin 500 Unit/5 Ml (100/Ml)) 500 unit IV UD PRN PRN Reason: HEPARIN FLUSH Sodium Chloride () 1,000 mls @ 150 mls/hr IV .Q6H40M [facility] Last Admin: 05/25/18 06:40 Dose: 150 mls/hr Lorazepam (Ativan) 0.5 mg PO BID [facility] Last Admin: 05/24/18 21:51 Dose: 0.5 mg Metronidazole (Flagyl) 500 mg PO 4X/DAYCM [facility] Multivitamins/Minerals (Multivitamin With Minerals) 1 tablet PO DAILYCM [facility] Nutritional Formula (Lactose Free) (Ensure Clear) 120 ml PO 4X/DAY [facility] Last Admin: 05/24/18 21:54 Dose: 120 ml Ondansetron HCl (Zofran) 4 mg IV Q6H PRN PRN PRN Reason: NAUSEA Last Admin: 05/25/18 08:21 Dose: 4 mg Pantoprazole Sodium (Protonix) 40 mg PO DAILY [facility] Potassium Phos/Sodium Phos (Neutra-Phos Packet) 1 packet PO 4X/DAY [facility] Sertraline HCl (Zoloft) 100 mg PO DAILY [facility] Sodium Chloride () 10 ml IV UD PRN PRN Reason: VAD FLUSH ROS Constitutional: generalized fatigue with decreased appetite. Neuro: frequent imbalance and several falls recently. HEENT: No recent change in voice, vision or hearing. Resp: Denies shortness of breath at rest. CVS: Denies exertional chest pain, PND, orthopnea and LE edema. palpitations just today. GI: Denies dysgeusia. Denies symptoms of stomatitis. Denies dysphagia and odynophagia. : Denies dysuria or gross hematuria. No symptoms of bladder outlet obstruction. Endo: Denies hot flashes. Denies polyuria and polydipsia. Denies heat and cold intolerance. Musculoskeletal: Denies bone, back, joint and muscular pain. Derm: Denies rash. Denies jaundice and diffuse pruritis. Heme: easy bruising. Psych: Normal mood. PHYSICAL EXAM: Vitals: Vital Signs Temp 98.6 F 05/25/18 02:17 Pulse 101 H 05/25/18 08:39 Resp 18 05/25/18 02:17 BP 144/81 H 05/25/18 02:17 Pulse Ox 94 05/25/18 02:17 Intake & Output 05/23/18 05/24/18 05/25/18 23:59 23:59 23:59 Intake Total 2790 / 2790 Output Total 1600 / 1600 Balance 1190 / 1190 Weight: 38.192 kg Intake: Oral 420 / 420 IV fluid/meds 2370 / 2370 Output: Urine 100 / 100 Urine/Stool Mix 1500 / 1500 Other: Number of Voids 3 Thin-appearing and in no acute distress. EYES: Sclerae are anicteric bilaterally. NECK: Supple. LYMPHATIC: There is no palpable cervical, supraclavicular, axillary adenopathy. RESPIRATORY: Inspiratory breath sounds are of diminished intensity in all mcpherson. CARDIOVASCULAR: Rhythm is regular. Normal intensity S1/S2. ABDOMEN: The abdomen is nondistended. No organomegaly. Slight diffuse tenderness. Extremities: No swelling or edema. SKIN: No jaundice or rash. multiple scattered ecchymoses. 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 ASSESSMENT/PLAN: 1) Diarrhea. Assessment: -Chronic and recurrent issues. -C diff negative and enteric pathogen panel pending. -CT from [facility] reviewed--Only small area thickening sigmoid colon. Plan: -IVFs. -Agree repeat CT A/P. -Empiric therapy for diverticulitis. 2) MDS. Assessment: -Long standing issue. -evidently recent loss of effect of Vidaza. -?Nutritional deficiencies contributing. Plan: -Transfuse RBCs if Hgb under 8 g/dl. Does not need CMV negative or irradiated blood products.
[2018-05-25] MEDS: metroNIDAZOLE 500 MG Tablet PO ×4 (10:11→21:45)
[2018-05-25] MEDS: Sertraline 100 MG Tablet PO (10:12)
[2018-05-25] MEDS: Pantoprazole Sodium 40 MG Tablet PO (10:12)
[2018-05-25] MEDS: Gabapentin 800 MG Tablet PO ×3 (10:12→18:01)
[2018-05-25] MEDS: Multivitamins,Ther W-Minerals Tablet 1 TABLET PO (10:12)
[2018-05-25] MEDS: Ciprofloxacin 500 MG Tablet PO ×2 (10:12→21:45)
[2018-05-25] MEDS: Calcium Carbonate 500 MG Tablet 1000 MG PO (10:12)
[2018-05-25] MEDS: LORazepam 0.5 MG Tablet PO ×2 (10:12→21:45)
--- NOTE | 2018-05-25 10:14 | NURSING ---
wound photo: left lower leg
--- NOTE | 2018-05-25 10:15 | NURSING ---
wound photo: left upper martinez
--- NOTE | 2018-05-25 10:15 | NURSING ---
wound photo: left elbow
[2018-05-25] MEDS: Acetaminophen 325 MG Tablet 650 MG PO (10:19)
--- NOTE | 2018-05-25 10:46 | NURSING ---
Patient left unit for CT scan
--- NOTE | 2018-05-25 12:30 | CASEMGMT ---
Social Work Assessment Referral Date: 05/25/2018 Date of Assessment: 05/25/2018 Reason for consult: Initial assessment Informant: SW Personal Status: SW met with pt to complete initial assessment. Sw introduced self and role at [facility]. Pt is alert and orientated x3. Pt states that she lives with her and two children in a two story home. Pt states that her and her children are supportive of her and able to help out when needed. Pt does state that her works second shift though and isn't able to help when he is at work. Pt states that she was previously independent with ALDs but recently required extra assistance. Pt states that her pharmacy is [facility] and her PCP is Hussain Krause at [facility]. Pt states that she is not currently on chemotherapy. DME include cane, walker, and wheelchair. Substance Abuse Hx: Pt states that she smokes less than a pack of cigarettes a day. Pt denied additional substance use. Mental Health Hx: Pt states that she has a history of anxiety and is currently taking antidepressants. Pt states that her medications are prescribed through her PCP. Pt states that her first choice would be to return home with [facility]. SW educated pt to HHC, private aides and SNF. Pt states that she wants to go home but doesn't think her or children are able to take care of her. Pt agreeable to SNF and then possibly looking into Assisted Living. SW explained referral process and pre-cert needing to be obtained. Pt states understanding. Pt states that first choice would be [facility] and second choice would be [facility]. MONIE placed a call to [facility] to send referral to [facility] first. Plan: SNF pending acceptance and pre-cert Elissa Wray [address]IGHW[address] ENGINEERING TECHNICIAN, OB/GYN PHYSICIAN
--- NOTE | 2018-05-25 12:49 | CASEMGMT ---
Per MONIE Bowers, referrals need sent to [facility] and [facility] and patient is looking at short term skilled care with possible transition to intermediate care. Call placed to Elaina at [facility], voicemail left. Call placed to Sofia at [facility], Sofia will let me know if they can accept patient. Referrals faxed, confirmation rec'd. Grace Wilhelm LPN Clinical Support
--- NOTE | 2018-05-25 13:20 | CASEMGMT ---
Rec'd VM from Sofia at [facility]. They are able to accept patient. To let Sofia know if she should start pre-cert. Voicemail left for MONIE Bowers regarding same. Grace Wilhelm LPN Clinical Support
--- NOTE | 2018-05-25 14:04 | CASEMGMT ---
Social Work Note SW received message from Grace Wilhelm, quality management, that [facility] is able to accept and is a smoking facility so pt would be able to smoke there. SW in to update pt of this. Pt still agreeable to [facility]. MONIE placed a call to Sofia at [facility] and informed her to submit for pre-cert. Plan: [facility] pending pre-cert Elissa Wray LINE INSTALLER, PREMISES TECHNICIAN
[2018-05-25] MEDS: Na Biphos/Potassium Phosphate PACKET 1 PACKET PO ×3 (14:38→21:45)
--- NOTE | 2018-05-25 16:04 | CHAPLAIN ---
Type of Pastoral Visit _x__ Initial Visit ___ Follow-up Visit ___ On-call Visit ___ General Patient Visit ___ Spiritual Assessment ___ Family Conference ___ Bereavement ___ Rapid Response ___ Code Blue ___ Other (describe below) Pastoral Care Referral From _x__ Patient ___ Family ___ Nurse ___ Physician ___ Door Patcher ___ Band Maker ___ Other (describe below) Sacrament/Intervention _x__ Active listening ___ Anointing ___ Pentecostal ___ Bereavement ___ Communion x___ Alexandra exploration ___ _x__ Life review _x__ Prayer ___ Reconciliation ___ Sacrament of Sick _x__ Supportive presence ___ Wedding ___ Other (describe below) Pastoral Comments patient was very interested in talking about her prognosis from doctor; pt is having difficult time thinking in terms of months to live; pt asking questions about eternal life; pt says she has confidence that her sins are forgiven but has lingering thoughts and feelings about that; pt would welcome more visits if she remains in the hospital; prayer welcomed
--- NOTE | 2018-05-25 16:33 | CASEMGMT ---
MONIE received call from Sofia at [facility] and she said she does not have any PT/OT evaluations. MONIE faxed PT/OT evaluations to [facility]. Plan: [facility] pending insurance approval. Cydney CHAUDHARI
--- NOTE | 2018-05-25 17:55 | NURSING ---
CALLED TO ROOM DRESSING IS ALL BLOODY. SMALL AMOUNT BLOODY DRNG NOTED AT TOP OF DRSG. PT STATED THAT SHE WAS ITCHING AND IT STARTED BLEEDING. NO ACTIVE DRNG NOTED. 4X4 PLACED OVER AREA AND SECURED W/KERLEX.
[2018-05-25] MEDS: Loperamide 2 MG Capsule PO (19:00)
[2018-05-26] VITALS (12 sets, daily range): BP systolic 105–141; BP diastolic 70–84; PULSE 83–121; RESP 16–18; TEMP 36.4–38.7; O2SAT 89–98
[2018-05-26] MEDS: Menthol/Lanolin/Calamine/Znox 113 GM Tube 1 APPLIC TOPICAL ×3 (02:21→21:31)
[2018-05-26] MEDS: Acetaminophen 325 MG Tablet 650 MG PO ×2 (02:21→17:56)
[2018-05-26] MEDS: 0.9% Normal Saline 1,000 ML 150 ML IV (05:36)
[2018-05-26] MEDS: 0.9% NaCl VAD Flush 10 ML IV (07:53)
[2018-05-26] MEDS: metroNIDAZOLE 500 MG Tablet PO ×4 (07:54→21:30)
[2018-05-26] MEDS: Calcium Carbonate 500 MG Tablet 1000 MG PO (07:55)
[2018-05-26] MEDS: Gabapentin 800 MG Tablet PO ×3 (07:55→16:51)
[2018-05-26] MEDS: Multivitamins,Ther W-Minerals Tablet 1 TABLET PO (07:55)
[2018-05-26 08:05] LABS: Hematocrit 25.4 % (37-47); Hemoglobin 8.4 g/dl (12.0-15.0); Mean Corp Hgb Conc 33.1 g/gl (32-36); Mean Corpuscular Hgb 33.3 pg (27.0-32.0); Mean Corpuscular Volume 100.8 fL (81-99); Mean Platelet Vol. 9.7 fl (6.2-12.0); Platelet Count 72 K/mm3 (150-450); RBC Distribution Width CV 16.7 % (11.6-14.6); RBC Distribution Width SD 59.3 fl (35.1-43.9); Red Blood Count 2.52 M/mm3 (4.2-5.4); White Blood Count 4.7 K/mm3 (4.4-11.0)
[2018-05-26 08:08] LABS: Scan Indicated on CBC? Y/N NO
--- NOTE | 2018-05-26 08:40 | PCM.PN.HOSP ---
Patient Problems: Active and Suspected Problems (Last Updated 01/08/18 @ 13:22 by Rosalie Vickers) Abdominal pain, vomiting, and diarrhea (Acute) Subjective: Patient seen complains of extreme fatigue. CT of the abdomen obtained on 05/25/2018 demonstrated Wall thickening of the distal stomach with gastritis versus ulcer disease. Subsequently placed a consultation to general surgery Objective: GENERAL: cachectic HEENT: Atraumatic; moist oral mucosa EYES; Anicteric, Normal Conjunctiva NECK; supple, normal thyroid, no distended JVD. RESPIRATORY: Diminished to auscultation bilaterally, CARDIOVASCULAR: Regular S1 S2, no audible murmurs GI: soft, non-tender, normoactive bowel sounds, : No Renal angle tenderness; No reis EXTREMITIES: No edema, no clubbing, no cyanosis. MUSCULOSKELTAL: No Joint Tenderness; no muscle waisting NEURO: Awake; no lateralizing signs. SKIN: Dry PSYCH; Normal affect Vitals/I&O's: Vital Signs Temp Pulse Resp BP Pulse Ox 98.6 F 100 18 120/71 98 05/26/18 05:37 05/26/18 07:41 05/26/18 05:37 05/26/18 05:37 05/26/18 05:37 Oxygen Flow Rate (L/min) 2 Oxygen Delivery Method Nasal Cannula Weight: 38.192 kg Body Mass Index (BMI) 14.0 Intake and Output for Last 24 Hours 05/24/18 05/25/18 05/26/18 23:59 23:59 23:59 Intake Total 5490 / 5490 1062 / 1062 Output Total 2650 / 2650 400 / 400 Balance 2840 / 2840 662 / 662 Microbiology Past 72 Hours 05/24/18 20:54 Stool Enteric Bacteriology - Final 05/24/18 20:54 Stool C. difficile DNA Amplification - Final Laboratory Results 05/26/18 07:57: WBC 4.7, RBC 2.52 L, Hgb 8.4 L, Hct 25.4 L, MCV 100.8 H, MCH 33.3 H, MCHC 33.1, RDW 16.7 H, RDW Differential 59.3 H, Plt Count 72 L, MPV 9.7 05/26/18 07:58: Sodium Pending, Potassium Pending, Chloride Pending, Carbon Dioxide Pending, Anion Gap Pending, BUN Pending, Creatinine Pending, Est GFR (MDRD) Af Amer Pending, Est GFR (MDRD) Non-Af Pending, BUN/Creatinine Ratio Pending, Glucose Pending, Calcium Pending, Magnesium Pending Current Medications Acetaminophen (Tylenol) 650 mg PO Q4H PRN PRN PRN Reason: PAIN Last Admin: 05/26/18 02:21 Dose: 650 mg Calamine/Phenol (Calmoseptine Ointment) 1 applic TOPICAL TID [facility]; Protocol Last Admin: 05/26/18 02:21 Dose: 1 applicatio Calcium Carbonate (Tums) 1,000 mg PO DAILY@0800 [facility] Last Admin: 05/26/18 07:55 Dose: 1,000 mg Ergocalciferol (Vitamin D) 50,000 unit PO Q7D [facility] Gabapentin (Neurontin) 800 mg PO TIDCM [facility] Last Admin: 05/26/18 07:55 Dose: 800 mg Heparin Sodium (Beef Lung) (Heparin 500 Unit/5 Ml (100/Ml)) 500 unit IV UD PRN PRN Reason: HEPARIN FLUSH Ampicillin Sodium/Sulbactam (Sodium 3 gm/ Sodium Chloride) 112 mls @ 150 mls/hr IV Q8 [facility] Last Admin: 05/26/18 03:33 Dose: 150 mls/hr Azithromycin 500 mg/ Dextrose 255 mls @ 250 mls/hr IV Q24 [facility] Last Admin: 05/26/18 05:36 Dose: 250 mls/hr Sodium Chloride () 1,000 mls @ 100 mls/hr IV .Q10H [facility] Lorazepam (Ativan) 0.5 mg PO BID [facility] Last Admin: 05/25/18 21:45 Dose: 0.5 mg [facility] Last Admin: 05/26/18 07:54 Dose: 500 mg Multivitamins/Minerals (Multivitamin With Minerals) [facility] Last Admin: 05/26/18 07:55 Dose: 1 tablet Nutritional Formula (Lactose Free) (Ensure Clear) 120 ml PO 4X/DAY [facility] Last Admin: 05/26/18 07:54 Dose: 120 ml Ondansetron HCl (Zofran) 4 mg IV Q6H PRN PRN PRN Reason: NAUSEA Last Admin: 09/28/18 08:21 Dose: 4 mg Pantoprazole Sodium (Protonix) 40 mg PO DAILY [facility] Last Admin: 05/25/18 10:12 Dose: 40 mg Potassium Phos/Sodium Phos (Neutra-Phos Packet) 1 packet PO 4X/DAY [facility] Last Admin: 05/25/18 21:45 Dose: 1 packet Sertraline HCl (Zoloft) 100 mg PO DAILY [facility] Last Admin: 05/25/18 10:12 Dose: 100 mg Sodium Chloride () 10 ml IV UD PRN PRN Reason: VAD FLUSH Last Admin: 05/26/18 07:53 Dose: 20 ml Medical Necessity - Tobacco Use Smoking Status: Current some day smoker Tobacco Use: Cigarettes Assessment/Plan All Active Problems (Last Updated 01/08/18 @ 13:22 by Rosalie Vickers) Abdominal pain, vomiting, and diarrhea (Acute) SIRS (systemic inflammatory response syndrome) (Resolved) Patient is a 57-year-old lady with history of myelodysplastic syndrome who is been on treatment for the past 8 years last chemo being a month prior to admission who presented with abdominal cramping associated with diarrhea. An assessment of suspected colitis made admitted to regular nursing floor for further management. 1. Acute colitis ruling out infectious etiologies stool for C. difficile came back negative other enteric pathogen panel pending. CT of the abdomen with pelvis ordered for subsequent evaluation. Patient empirically started on Cipro and Flagyl 2. Severe protein calorie malnutrition with BMI of 14 and hypoalbuminemia. Nutritional consultation obtained 3. Hypocalcemia attributed to patient's hypoalbuminemia, patient low calcium repleted per protocol 4. Myelodysplastic syndrome patient is followed by Dr. Cabrera as outpatient on chemo 5. Pulmonary fibrosis 6. Hypertension-blood pressure controlled, currently not on any medications 7. 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 Tobacco dependence counseled on cessation, offered nicotine patch for tobacco cravings 9. Chronic alcohol abuse counseled on cessation 10. Depression with anxiety 11. Anemia secondary to anemia as a result of myelodysplastic syndrome monitoring H&H with plan to transfuse patient become symptomatic or hemoglobin falls below 7 12. Dyslipidemia 13. DVT prophylaxis SCDs 10. Gastric thickening based on CT findings given patient history of significant weight loss as well as alcohol use consultation was placed to general surgery for possible endoscopic evaluation Clinical Impression(s) from Imaging Studies Abdomen/Pelvis CT 05/25/18 07:59 IMPRESSION: Wall thickening of the distal stomach with gastritis versus ulcer disease. No obstruction. L3 compression fracture. Fibrotic densities with left lower lung airspace consolidation. Electronically Signed: William Ann MD at 11:46 EDT , Service support , Code Visit Inpatient E&M: 11051 Subs Hosp L3
[2018-05-26 08:43] LABS: Anion Gap 8 (5-15); BUN 4 mg/dL (7-18); BUN/Creat Ratio 6.4 RATIO (10-20); Chloride 113 mmol/L (98-107); Creatinine, Serum 0.62 mg/dL (0.55-1.02); EST Glomerular Filtration Rate 105 mL/min (>60); Est Glom Filt Rate - Afr Amer 127 mL/min (>60); Estimated Creatinine Clearance 60.36 ml/min; Glucose 61 mg/dL (74-106); Magnesium 1.5 mg/dL (1.6-2.6); Potassium 3.3 mmol/L (3.5-5.1); Sodium Level 141 mmol/L (136-145)
--- NOTE | 2018-05-26 08:43 | PN_ITS ---
Patient Problems: Active and Suspected Problems (Last Updated 01/08/18 @ 13:22 by Rosalie Vickers) Abdominal pain, vomiting, and diarrhea (Acute) Subjective: Patient seen complains of extreme fatigue. CT of the abdomen obtained on 05/25/2018 demonstrated Wall thickening of the distal stomach with gastritis versus ulcer disease. Subsequently placed a consultation to general surgery Objective: GENERAL: cachectic HEENT: Atraumatic; moist oral mucosa EYES; Anicteric, Normal Conjunctiva NECK; supple, normal thyroid, no distended JVD. RESPIRATORY: Diminished to auscultation bilaterally, CARDIOVASCULAR: Regular S1 S2, no audible murmurs GI: soft, non-tender, normoactive bowel sounds, : No Renal angle tenderness; No reis EXTREMITIES: No edema, no clubbing, no cyanosis. MUSCULOSKELTAL: No Joint Tenderness; no muscle waisting NEURO: Awake; no lateralizing signs. SKIN: Dry PSYCH; Normal affect Vitals/I&O's: Vital Signs Temp Pulse Resp BP Pulse Ox 98.6 F 100 18 120/71 98 05/26/18 05:37 05/26/18 07:41 05/26/18 05:37 05/26/18 05:37 05/26/18 05:37 Oxygen Flow Rate (L/min) 2 Oxygen Delivery Method Nasal Cannula Weight: 38.192 kg Body Mass Index (BMI) 14.0 Intake and Output for Last 24 Hours 05/24/18 05/25/18 05/26/18 23:59 23:59 23:59 Intake Total 5490 / 5490 1062 / 1062 Output Total 2650 / 2650 400 / 400 Balance 2840 / 2840 662 / 662 Microbiology Past 72 Hours 05/24/18 20:54 Stool Enteric Bacteriology - Final 05/24/18 20:54 Stool C. difficile DNA Amplification - Final Laboratory Results 05/26/18 07:57: WBC 4.7, RBC 2.52 L, Hgb 8.4 L, Hct 25.4 L, MCV 100.8 H, MCH 33.3 H, MCHC 33.1, RDW 16.7 H, RDW Differential 59.3 H, Plt Count 72 L, MPV 9.7 05/26/18 07:58: Sodium Pending, Potassium Pending, Chloride Pending, Carbon Dioxide Pending, Anion Gap Pending, BUN Pending, Creatinine Pending, Est GFR (MDRD) Af Amer Pending, Est GFR (MDRD) Non-Af Pending, BUN/Creatinine Ratio Pending, Glucose Pending, Calcium Pending, Magnesium Pending Current Medications Acetaminophen (Tylenol) 650 mg PO Q4H PRN PRN PRN Reason: PAIN Last Admin: 05/26/18 02:21 Dose: 650 mg Calamine/Phenol (Calmoseptine Ointment) 1 applic TOPICAL TID [facility]; Protocol Last Admin: 05/26/18 02:21 Dose: 1 applicatio Calcium Carbonate (Tums) 1,000 mg PO DAILY@0800 [facility] Last Admin: 05/26/18 07:55 Dose: 1,000 mg Ergocalciferol (Vitamin D) 50,000 unit PO Q7D [facility] Gabapentin (Neurontin) 800 mg PO TIDCM [facility] Last Admin: 05/26/18 07:55 Dose: 800 mg Heparin Sodium (Beef Lung) (Heparin 500 Unit/5 Ml (100/Ml)) 500 unit IV UD PRN PRN Reason: HEPARIN FLUSH Ampicillin Sodium/Sulbactam (Sodium 3 gm/ Sodium Chloride) 112 mls @ 150 mls/hr IV Q8 [facility] Last Admin: 05/26/18 03:33 Dose: 150 mls/hr Azithromycin 500 mg/ Dextrose 255 mls @ 250 mls/hr IV Q24 [facility] Last Admin: 05/26/18 05:36 Dose: 250 mls/hr Sodium Chloride () 1,000 mls @ 100 mls/hr IV .Q10H [facility] Lorazepam (Ativan) 0.5 mg PO BID [facility] Last Admin: 05/25/18 21:45 Dose: 0.5 mg Met[facility] (Flag[facility]) [facility] Admin: 05/26/18 07:54 Dose: 500 mg Multivitamins/Minerals (Multivitamin With Minerals) [facility] Last Admin: 05/26/18 07:55 Dose: 1 tablet Nutritional Formula (Lactose Free) (Ensure Clear) 120 ml PO 4X/DAY [facility] Last Admin: 05/26/18 07:54 Dose: 120 ml Ondansetron HCl (Zofran) 4 mg IV Q6H PRN PRN PRN Reason: NAUSEA Last Admin: 09/28/18 08:21 Dose: 4 mg Pantoprazole Sodium (Protonix) 40 mg PO DAILY [facility] Last Admin: 05/25/18 10:12 Dose: 40 mg Potassium Phos/Sodium Phos (Neutra-Phos Packet) 1 packet PO 4X/DAY [facility] Last Admin: 05/25/18 21:45 Dose: 1 packet Sertraline HCl (Zoloft) 100 mg PO DAILY [facility] Last Admin: 05/25/18 10:12 Dose: 100 mg Sodium Chloride () 10 ml IV UD PRN PRN Reason: VAD FLUSH Last Admin: 05/26/18 07:53 Dose: 20 ml Medical Necessity - Tobacco Use Smoking Status: Current some day smoker Tobacco Use: Cigarettes Assessment/Plan All Active Problems (Last Updated 01/08/18 @ 13:22 by Rosalie Vickers) Abdominal pain, vomiting, and diarrhea (Acute) SIRS (systemic inflammatory response syndrome) (Resolved) Patient is a 57-year-old lady with history of myelodysplastic syndrome who is been on treatment for the past 8 years last chemo being a month prior to admission who presented with abdominal cramping associated with diarrhea. An assessment of suspected colitis made admitted to regular nursing floor for further management. 1. Acute colitis ruling out infectious etiologies stool for C. difficile came back negative other enteric pathogen panel pending. CT of the abdomen with pelvis ordered for subsequent evaluation. Patient empirically started on Cipro and Flagyl 2. Severe protein calorie malnutrition with BMI of 14 and hypoalbuminemia. Nutritional consultation obtained 3. Hypocalcemia attributed to patient's hypoalbuminemia, patient low calcium repleted per protocol 4. Myelodysplastic syndrome patient is followed by Dr. Cabrera as outpatient on chemo 5. Pulmonary fibrosis 6. Hypertension-blood pressure controlled, currently not on any medications 7. 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 Tobacco dependence counseled on cessation, offered nicotine patch for tobacco cravings 9. Chronic alcohol abuse counseled on cessation 10. Depression with anxiety 11. Anemia secondary to anemia as a result of myelodysplastic syndrome monitoring H&H with plan to transfuse patient become symptomatic or hemoglobin falls below 7 12. Dyslipidemia 13. DVT prophylaxis SCDs 10. Gastric thickening based on CT findings given patient history of significant weight loss as well as alcohol use consultation was placed to general surgery for possible endoscopic evaluation Clinical Impression(s) from Imaging Studies Abdomen/Pelvis CT 05/25/18 07:59 IMPRESSION: Wall thickening of the distal stomach with gastritis versus ulcer disease. No obstruction. L3 compression fracture. Fibrotic densities with left lower lung airspace consolidation. Electronically Signed: William Ann MD at 11:46 EDT , Service support , Code Visit Inpatient E&M: 03767 Subs Hosp L3
[2018-05-26] MEDS: LORazepam 0.5 MG Tablet PO ×2 (09:53→21:30)
[2018-05-26] MEDS: Pantoprazole Sodium 40 MG Tablet PO (09:54)
[2018-05-26] MEDS: Na Biphos/Potassium Phosphate PACKET 1 PACKET PO ×4 (09:54→21:30)
[2018-05-26] MEDS: Sertraline 100 MG Tablet PO (09:55)
--- NOTE | 2018-05-26 14:53 | PCM.CONS.GEN ---
Reason for Consult Date of Consultation: 05/26/18 Reason for Consultation: CT abdomen pelvis with thickening of the distal stomach History of Present Illness: The patient is a 57 year old F presented to the ER due to nausea vomiting and diarrhea. Patient does have past medical history significant for MDS which she had been on chemotherapy for last was about 4 weeks ago. Patient states that in between chemo doses she usually does get nausea vomiting and diarrhea. Her last scope was done about a year ago per the patient by Dr. Willis which showed colitis. Patient did have a CT abdomen pelvis which was done which commented on some thickening of the distal stomach. She states she has never had EGD done in the past. She does have heartburn which she takes omeprazole 40 mg p.o. daily and denies any symptoms. She does admit to weight loss she states that about a year ago she was about 112 pounds currently she is about 84 pounds. She states she does get a decreased appetite with chemotherapy but the weight loss is not intentional. States she occasionally has central abdominal pain with her diarrhea. Patient states her diarrhea is normal for her but it is worse currently. She denies any left upper quadrant pain are previous surgeries other than her tubal. Currently she is on Cipro Flagyl for possible colitis. Past Medical History Past Medical History (Chronic Problems): Chronic Problems (Last Updated 01/08/18 @ 13:22 by Rosalie Vickers) MDS (myelodysplastic syndrome), low grade (Chronic) Alcoholism (Chronic) Nicotine abuse (Chronic) Acute AL, subendocardial (Chronic) Hyperlipidemia (Chronic) Atherosclerotic heart disease of [place] coronary artery without angina pectoris (Chronic) UIP (usual interstitial pneumonitis) (Chronic) suspected severe chronic changes on CT scan Stroke, hemorrhagic (Chronic) reportedly after a fall w head trauma HTN (hypertension) (Chronic) MDS (myelodysplastic syndrome) (Chronic) Medical History: Medical History (Last Updated 01/08/18 @ 13:22 by Rosalie Vickers) Alcoholism (Chronic) F10.20 Acute AL, subendocardial (Chronic) I21.4 Hyperlipidemia (Chronic) E78.5 Atherosclerotic heart disease of [place] coronary artery without angina pectoris (Chronic) I25.10 Stroke, hemorrhagic (Chronic) I61.9 reportedly after a fall w head trauma HTN (hypertension) (Chronic) I10 MDS (myelodysplastic syndrome) (Chronic) D46.9 Chronic interstitial lung disease J84.9 Renal failure N19 Seizure disorder G40.909 Allergies No Known Allergies Allergy (Verified 05/24/18 15:17) Home Medications: Ambulatory Orders Medication Instructions Recorded Gabapentin [Neurontin] 800 mg PO TIDCM 08/29/14 Lorazepam [Ativan] 0.5 mg PO BID PRN PRN 01/17/15 Sertraline HCl [Zoloft] 100 mg PO QHS 01/17/15 Multivitamins,Ther W-Minerals 1 tablet PO DAILY 09/20/15 [Multivitamin With Minerals] Nitroglycerin 0.4 mg SL PRN PRN 07/17/17 Omeprazole [Prilosec] 40 mg PO DAILY 07/17/17 Ergocalciferol [Vitamin D] 50,000 unit PO Q7D 05/24/18 Ondansetron [Zofran] 8 mg PO PRN PRN 05/24/18 Surgical History: Surgical History (Last Reviewed 05/24/18 @ 17:32 by FILIPPO Briggs) Hx of craniotomy Onset Date: ~2012 Z98.890 Hx of tubal ligation Z98.51 Surgical History: - - left chest port placement Psychiatric History: Anxiety, Depression Lives: Spouse/ Significant Other Smoking Status: Current some day smoker Tobacco Use: Cigarettes Alcohol: Sober Drugs: None - *Family History Maternal Family History: Family History (Last Reviewed 05/24/18 @ 17:36 by FILIPPO Briggs) Mother CAD (coronary artery disease) Brother Hypertension Atrial fibrillation History Items: Unknown Review of Systems Constitutional: Denies: Chills, Fever Eyes: Denies: Blurred vision HEENT: Denies: Difficulty Swallowing Cardiovascular: Denies: Palpitations Respiratory: Reports: Shortness of Breath - With exertion patient occasionally wears O2 at home Gastrointestinal: Reports: Nausea, Vomiting. Denies: Abdominal Pain Genitourinary: Denies: Dysuria Skin: Denies: Rash Neurological: Denies: Blurred vision Psychiatric: Reports: Anxiety. Denies: Depression Hematologic/ Lymphatic: Reports: Easy Bruising, Easy Bleeding Patient Problems: Active and Suspected Problems (Last Updated 01/08/18 @ 13:22 by Rosalie Vickers) Abdominal pain, vomiting, and diarrhea (Acute) - Physical Exam General: Alert, Oriented x3, Cooperative, No apparent distress HEENT: Atraumatic Lungs: Normal air movement Cardiovascular: Regular rate Abdomen: Soft, Non Tender - No peritoneal signs, Non-Distended Extremities: No clubbing, No cyanosis, No edema Neurological: Cranial nerves II-XII grossly intact Psych/Mental Status: Normal Affect Vital Signs Temp Pulse Resp BP Pulse Ox 98.1 F 114 H 16 115/76 96 05/26/18 09:57 05/26/18 10:10 05/26/18 09:57 05/26/18 09:57 05/26/18 09:57 Oxygen Flow Rate (L/min) 2 Oxygen Delivery Method Nasal Cannula Weight: 84 lb 3.2 oz Body Mass Index (BMI) 14.0 Intake and Output for Last 24 Hours 05/24/18 05/25/18 05/26/18 23:59 23:59 23:59 Intake Total 5490 / 5490 2205 / 2205 Output Total 2650 / 2650 1500 / 1500 Balance 2840 / 2840 705 / 705 Microbiology Past 72 Hours 05/24/18 20:54 Enteric Bacteriology - Final Stool 05/24/18 20:54 C. difficile DNA Amplification - Final Stool Laboratory Tests Past 24 Hrs 05/26/18 05/26/18 07:57 07:58 WBC 4.7 RBC 2.52 L Hgb 8.4 L Hct 25.4 L MCV 100.8 H MCH 33.3 H MCHC 33.1 RDW 16.7 H RDW Differential 59.3 H Plt Count 72 L MPV 9.7 Sodium 141 Potassium 3.3 L Chloride 113 H Carbon Dioxide 20.0 L Anion Gap 8 BUN 4 L Creatinine 0.62 Estim Creat Clear Calc 60.36 Est GFR (MDRD) Af Amer 127 Est GFR (MDRD) Non-Af 105 BUN/Creatinine Ratio 6.4 L Glucose 61 L Calcium 6.0 L* Magnesium 1.5 L Assessment/Plan All Active Problems (Last Updated 01/08/18 @ 13:22 by Rosalie Vickers) Abdominal pain, vomiting, and diarrhea (Acute) SIRS (systemic inflammatory response syndrome) (Resolved) 57-year-old female admitted for nausea vomiting and history of MDS, CT showed some thickening of the distal stomach 1. Discussed with patient that we could do an EGD as an outpatient. Patient previously had a colonoscopy about a year ago by Dr. Zavala. Also discussed that she could go see Dr. Zavala again as well or follow up with me for an outpatient EGD to investigate this thickening of the distal stomach which was seen on CAT scan. Currently patient's platelets are 75 as long as they do not drop much lower she would still be a candidate for an EGD with as she would likely need a biopsy as well. Patient does take omeprazole 40 mg daily denies having any symptoms but states she has been on for greater than 5 years she has never had an EGD in that time. She also states she has had weight loss over about a year she has gone from about 112 to 84 pounds, she attributes some of this to her chemotherapy for MDS as she has a decreased appetite with the chemotherapy. Codie Mcclure M.D. Pager: [phone] [facility] [address] [place] [address], [facility], [address] [place] [id number] Office: [phone] Code Visit Inpatient E&M: 37023 Init Hosp L1
--- NOTE | 2018-05-26 14:58 | CON.PCM_ITS ---
Reason for Consult Date of Consultation: 05/26/18 Reason for Consultation: CT abdomen pelvis with thickening of the distal stomach History of Present Illness: The patient is a 57 year old F presented to the ER due to nausea vomiting and diarrhea. Patient does have past medical history significant for MDS which she had been on chemotherapy for last was about 4 weeks ago. Patient states that in between chemo doses she usually does get nausea vomiting and diarrhea. Her last scope was done about a year ago per the patient by Dr. Willis which showed colitis. Patient did have a CT abdomen pelvis which was done which commented on some thickening of the distal stomach. She states she has never had EGD done in the past. She does have heartburn which she takes omeprazole 40 mg p.o. daily and denies any symptoms. She does admit to weight loss she states that about a year ago she was about 112 pounds currently she is about 84 pounds. She states she does get a decreased appetite with chemotherapy but the weight loss is not intentional. States she occasionally has central abdominal pain with her diarrhea. Patient states her diarrhea is normal for her but it is worse currently. She denies any left upper quadrant pain are previous surgeries other than her tubal. Currently she is on Cipro Flagyl for possible colitis. Past Medical History Past Medical History (Chronic Problems): Chronic Problems (Last Updated 01/08/18 @ 13:22 by Rosalie Vickers) MDS (myelodysplastic syndrome), low grade (Chronic) Alcoholism (Chronic) Nicotine abuse (Chronic) Acute ND, subendocardial (Chronic) Hyperlipidemia (Chronic) Atherosclerotic heart disease of [place] coronary artery without angina pectoris (Chronic) UIP (usual interstitial pneumonitis) (Chronic) suspected severe chronic changes on CT scan Stroke, hemorrhagic (Chronic) reportedly after a fall w head trauma HTN (hypertension) (Chronic) MDS (myelodysplastic syndrome) (Chronic) Medical History: Medical History (Last Updated 01/08/18 @ 13:22 by Rosalie Vickers) Alcoholism (Chronic) F10.20 Acute ND, subendocardial (Chronic) I21.4 Hyperlipidemia (Chronic) E78.5 Atherosclerotic heart disease of [place] coronary artery without angina pectoris (Chronic) I25.10 Stroke, hemorrhagic (Chronic) I61.9 reportedly after a fall w head trauma HTN (hypertension) (Chronic) I10 MDS (myelodysplastic syndrome) (Chronic) D46.9 Chronic interstitial lung disease J84.9 Renal failure N19 Seizure disorder G40.909 Allergies No Known Allergies Allergy (Verified 05/24/18 15:17) Home Medications: Ambulatory Orders Medication Instructions Recorded Gabapentin [Neurontin] 800 mg PO TIDCM 08/29/14 Lorazepam [Ativan] 0.5 mg PO BID PRN PRN 01/17/15 Sertraline HCl [Zoloft] 100 mg PO QHS 01/17/15 Multivitamins,Ther W-Minerals 1 tablet PO DAILY 09/20/15 [Multivitamin With Minerals] Nitroglycerin 0.4 mg SL PRN PRN 07/17/17 Omeprazole [Prilosec] 40 mg PO DAILY 07/17/17 Ergocalciferol [Vitamin D] 50,000 unit PO Q7D 05/24/18 Ondansetron [Zofran] 8 mg PO PRN PRN 05/24/18 Surgical History: Surgical History (Last Reviewed 05/24/18 @ 17:32 by FILIPPO Briggs) Hx of craniotomy Onset Date: ~2012 Z98.890 Hx of tubal ligation Z98.51 Surgical History: - - left chest port placement Psychiatric History: Anxiety, Depression Lives: Spouse/ Significant Other Smoking Status: Current some day smoker Tobacco Use: Cigarettes Alcohol: Sober Drugs: None - *Family History Maternal Family History: Family History (Last Reviewed 05/24/18 @ 17:36 by FILIPPO Briggs) Mother CAD (coronary artery disease) Brother Hypertension Atrial fibrillation History Items: Unknown Review of Systems Constitutional: Denies: Chills, Fever Eyes: Denies: Blurred vision HEENT: Denies: Difficulty Swallowing Cardiovascular: Denies: Palpitations Respiratory: Reports: Shortness of Breath - With exertion patient occasionally wears O2 at home Gastrointestinal: Reports: Nausea, Vomiting. Denies: Abdominal Pain Genitourinary: Denies: Dysuria Skin: Denies: Rash Neurological: Denies: Blurred vision Psychiatric: Reports: Anxiety. Denies: Depression Hematologic/ Lymphatic: Reports: Easy Bruising, Easy Bleeding Patient Problems: Active and Suspected Problems (Last Updated 01/08/18 @ 13:22 by Rosalie Vickers) Abdominal pain, vomiting, and diarrhea (Acute) - Physical Exam General: Alert, Oriented x3, Cooperative, No apparent distress HEENT: Atraumatic Lungs: Normal air movement Cardiovascular: Regular rate Abdomen: Soft, Non Tender - No peritoneal signs, Non-Distended Extremities: No clubbing, No cyanosis, No edema Neurological: Cranial nerves II-XII grossly intact Psych/Mental Status: Normal Affect Vital Signs Temp Pulse Resp BP Pulse Ox 98.1 F 114 H 16 115/76 96 05/26/18 09:57 05/26/18 10:10 05/26/18 09:57 05/26/18 09:57 05/26/18 09:57 Oxygen Flow Rate (L/min) 2 Oxygen Delivery Method Nasal Cannula Weight: 84 lb 3.2 oz Body Mass Index (BMI) 14.0 Intake and Output for Last 24 Hours 05/24/18 05/25/18 05/26/18 23:59 23:59 23:59 Intake Total 5490 / 5490 2205 / 2205 Output Total 2650 / 2650 1500 / 1500 Balance 2840 / 2840 705 / 705 Microbiology Past 72 Hours 05/24/18 20:54 Enteric Bacteriology - Final Stool 05/24/18 20:54 C. difficile DNA Amplification - Final Stool Laboratory Tests Past 24 Hrs 05/26/18 05/26/18 07:57 07:58 WBC 4.7 RBC 2.52 L Hgb 8.4 L Hct 25.4 L MCV 100.8 H MCH 33.3 H MCHC 33.1 RDW 16.7 H RDW Differential 59.3 H Plt Count 72 L MPV 9.7 Sodium 141 Potassium 3.3 L Chloride 113 H Carbon Dioxide 20.0 L Anion Gap 8 BUN 4 L Creatinine 0.62 Estim Creat Clear Calc 60.36 Est GFR (MDRD) Af Amer 127 Est GFR (MDRD) Non-Af 105 BUN/Creatinine Ratio 6.4 L Glucose 61 L Calcium 6.0 L* Magnesium 1.5 L Assessment/Plan All Active Problems (Last Updated 01/08/18 @ 13:22 by Rosalie Vickers) Abdominal pain, vomiting, and diarrhea (Acute) SIRS (systemic inflammatory response syndrome) (Resolved) 57-year-old female admitted for nausea vomiting and history of MDS, CT showed some thickening of the distal stomach 1. Discussed with patient that we could do an EGD as an outpatient. Patient previously had a colonoscopy about a year ago by Dr. Zavala. Also discussed that she could go see Dr. Zavala again as well or follow up with me for an outpatient EGD to investigate this thickening of the distal stomach which was seen on CAT scan. Currently patient's platelets are 75 as long as they do not drop much lower she would still be a candidate for an EGD with as she would likely need a biopsy as well. Patient does take omeprazole 40 mg daily denies having any symptoms but states she has been on for greater than 5 years she has never had an EGD in that time. She also states she has had weight loss over about a year she has gone from about 112 to 84 pounds, she attributes some of this to her chemotherapy for MDS as she has a decreased appetite with the chemotherapy. Codie Mcclure M.D. Pager: [phone] [facility] [address] [place] [address], [facility], [address] [place] [id number] Office: [phone] Code Visit Inpatient E&M: 55752 Init Hosp L1
[2018-05-26] MEDS: 0.9% Normal Saline 1,000 ML 100 ML IV (16:50)
[2018-05-27] VITALS (23 sets, daily range): BP systolic 99–154; BP diastolic 62–115; PULSE 69–141; RESP 18–28; TEMP 36.5–37.6; O2SAT 92–100
[2018-05-27] MEDS: 0.9% Normal Saline 1,000 ML 100 ML IV ×2 (04:50→17:10)
[2018-05-27 06:06] LABS: Hematocrit 27.8 % (37-47); Hemoglobin 9.1 g/dl (12.0-15.0); Mean Corp Hgb Conc 32.7 g/gl (32-36); Mean Corpuscular Volume 100.7 fL (81-99); Platelet Count 76 K/mm3 (150-450); RBC Distribution Width CV 16.7 % (11.6-14.6); RBC Distribution Width SD 59.3 fl (35.1-43.9); Red Blood Count 2.76 M/mm3 (4.2-5.4); White Blood Count 7.5 K/mm3 (4.4-11.0)
[2018-05-27 06:12] LABS: Scan Indicated on CBC? Y/N NO
[2018-05-27 06:33] LABS: Anion Gap 9 (5-15); BUN 4 mg/dL (7-18); BUN/Creat Ratio 7.6 RATIO (10-20); Calcium,Total 5.9 mg/dL (8.5-10.1); Chloride 116 mmol/L (98-107); Creatinine, Serum 0.53 mg/dL (0.55-1.02); EST Glomerular Filtration Rate 127 mL/min (>60); Est Glom Filt Rate - Afr Amer 153 mL/min (>60); Estimated Creatinine Clearance 70.61 ml/min; Glucose 90 mg/dL (74-106); Magnesium 2.1 mg/dL (1.6-2.6); Potassium 3.2 mmol/L (3.5-5.1); Sodium Level 144 mmol/L (136-145)
[2018-05-27] MEDS: Ipratropium/Albuterol Sulfate 3 ML AMPUL.NEB INHALATION ×4 (06:35→19:31)
[2018-05-27] MEDS: 0.9% NaCl VAD Flush 10 ML IV ×9 (06:42→18:22)
[2018-05-27] MEDS: Menthol/Lanolin/Calamine/Znox 113 GM Tube 1 APPLIC TOPICAL ×3 (06:43→21:37)
--- NOTE | 2018-05-27 06:57 | RAD_ITS ---
STUDY: X-RAY CHEST REASON FOR EXAM: Female, 57 years old. Dyspnea. TECHNIQUE: PA and lateral chest. COMPARISON: May 24, 2018. CT abdomen and pelvis May 25, 2018. FINDINGS: The heart is not enlarged. Stable position of left-sided port with tip in superior vena cava. No pneumothorax. Interval development of diffuse mid and lower lung interstitial opacities right greater than left. There is probably underlying scattered areas of fibrosis. No effusions. Lungs are hyperinflated. There is no demonstrated abnormality of the visualized soft tissue structures of the upper abdomen. RAD/Chest PA and Lateral IMPRESSION: Interval development of bilateral lower lobe, right middle lobe and lingular segment interstitial pneumonias. In correlation with the CT of the abdomen and pelvis development of pulmonary edema is not likely. COPD. Electronically Signed: Shaun Patterson MD at 7:50 EDT , Service support ,
[2018-05-27] MEDS: metroNIDAZOLE 500 MG Tablet PO (07:25)
[2018-05-27] MEDS: Gabapentin 800 MG Tablet PO ×3 (07:25→17:11)
[2018-05-27] MEDS: Acetaminophen 325 MG Tablet 650 MG PO ×2 (07:28→17:34)
--- NOTE | 2018-05-27 08:04 | PCM.PN.HOSP ---
Patient Problems: Active and Suspected Problems (Last Updated 01/08/18 @ 13:22 by Rosalie Vickers) Abdominal pain, vomiting, and diarrhea (Acute) Subjective: Patient went into SVT as well as episodes of nonsustained VT electrolytes significant for calcium of 5.9 as well as potassium of 3.2. Patient was also noted to be dyspneic chest x-ray obtained subsequently demonstrated Interval development of bilateral lower lobe, right middle lobe and lingular segment interstitial pneumonias. Patient was subsequently started on Unasyn as well as Zithromax by the covering night physician. Objective: GENERAL: cachectic HEENT: Atraumatic; moist oral mucosa EYES; Anicteric, Normal Conjunctiva NECK; supple, normal thyroid, no distended JVD. RESPIRATORY: Diminished to auscultation bilaterally, CARDIOVASCULAR: Regular S1 S2, no audible murmurs GI: soft, non-tender, normoactive bowel sounds, : No Renal angle tenderness; No reis EXTREMITIES: No edema, no clubbing, no cyanosis. MUSCULOSKELTAL: No Joint Tenderness; no muscle waisting NEURO: Awake; no lateralizing signs. SKIN: Dry; papular rash on her back PSYCH; Normal affect Vitals/I&O's: Vital Signs Temp Pulse Resp BP Pulse Ox 98.4 F 103 H 18 110/68 96 05/27/18 07:41 05/27/18 07:41 05/27/18 07:41 05/27/18 07:41 05/27/18 07:41 Oxygen Flow Rate (L/min) 3 Oxygen Delivery Method Nasal Cannula Weight: 38.192 kg Body Mass Index (BMI) 14.0 Intake and Output for Last 24 Hours 05/25/18 05/26/18 05/27/18 23:59 23:59 23:59 Intake Total 5490 / 5490 3081 / 3081 2561 / 2561 Output Total 2650 / 2650 1800 / 1800 1400 / 1400 Balance 2840 / 2840 1281 / 1281 1161 / 1161 Microbiology Past 72 Hours 05/24/18 20:54 Stool Enteric Bacteriology - Final 05/24/18 20:54 Stool C. difficile DNA Amplification - Final Laboratory Results 05/26/18 07:57: WBC 4.7, RBC 2.52 L, Hgb 8.4 L, Hct 25.4 L, MCV 100.8 H, MCH 33.3 H, MCHC 33.1, RDW 16.7 H, RDW Differential 59.3 H, Plt Count 72 L, MPV 9.7 05/26/18 07:58: Sodium 141, Potassium 3.3 L, Chloride 113 H, Carbon Dioxide 20.0 L, Anion Gap 8, BUN 4 L, Creatinine 0.62, Estim Creat Clear Calc 60.36, Est GFR (MDRD) Af Amer 127, Est GFR (MDRD) Non-Af 105, BUN/Creatinine Ratio 6.4 L, Glucose 61 L, Calcium 6.0 L*, Magnesium 1.5 L 05/27/18 05:30: WBC 7.5, RBC 2.76 L, Hgb 9.1 L, Hct 27.8 L, MCV 100.7 H, MCH 33.0 H, MCHC 32.7, RDW 16.7 H, RDW Differential 59.3 H, Plt Count 76 L, MPV 11.0 05/27/18 05:30: Sodium 144, Potassium 3.2 L, Chloride 116 H, Carbon Dioxide 19.0 L, Anion Gap 9, BUN 4 L, Creatinine 0.53 L, Estim Creat Clear Calc 70.61, Est GFR (MDRD) Af Amer 153, Est GFR (MDRD) Non-Af 127, BUN/Creatinine Ratio 7.6 L, Glucose 90, Calcium 5.9 L*, Magnesium 2.1 Current Medications Acetaminophen (Tylenol) 650 mg PO Q4H PRN PRN PRN Reason: PAIN Last Admin: 05/27/18 07:28 Dose: 650 mg Albuterol Sulfate (Ventolin Aerosols) 2.5 mg INHALATION Q2H PRN PRN PRN Reason: WHEEZING Albuterol/Ipratropium (Duoneb) 3 ml INHALATION Q4HWA.RT [facility] Last Admin: 05/27/18 06:35 Dose: 3 ml Calamine/Phenol (Calmoseptine Ointment) 1 applic TOPICAL TID [facility]; Protocol Last Admin: 05/27/18 06:43 Dose: 1 applicatio Calcium Carbonate (Tums) 1,000 mg PO DAILY@0800 [facility] Last Admin: 05/26/18 07:55 Dose: 1,000 mg Calcium/Vitamin D (Os-Óscar 500mg + D) 1 tablet PO TIDCM [facility] Ergocalciferol (Vitamin D) 50,000 unit PO Q7D [facility] Gabapentin (Neurontin) 800 mg PO TIDCM [facility] Last Admin: 05/27/18 07:25 Dose: 800 mg Heparin Sodium (Beef Lung) (Heparin 500 Unit/5 Ml (100/Ml)) 500 unit IV UD PRN PRN Reason: HEPARIN FLUSH Ampicillin Sodium/Sulbactam (Sodium 3 gm/ Sodium Chloride) 112 mls @ 150 mls/hr IV Q8 [facility] Last Admin: 05/27/18 06:42 Dose: 150 mls/hr Azithromycin 500 mg/ Dextrose 255 mls @ 250 mls/hr IV Q24 [facility] Last Admin: 05/26/18 05:36 Dose: 250 mls/hr Sodium Chloride () 1,000 mls @ 100 mls/hr IV .Q10H [facility] Last Admin: 05/27/18 04:50 Dose: 100 mls/hr Calcium Gluconate 2 gm/ (Dextrose) 120 mls @ 60 mls/hr IV X1 ONE Stop: 05/27/18 08:38 Potassium Chloride 10 meq/ N/A 100 mls @ 100 mls/hr IV Q1H [facility] Stop: 05/27/18 11:59 Lorazepam (Ativan) 0.5 mg PO BID [facility] Last Admin: 05/26/18 21:30 Dose: 0.5 mg Metronidazole (Flagyl) [facility] Last Admin: 05/27/18 07:25 Dose: 500 mg Multivitamins/Minerals (Multivitamin With Minerals) [facility] Last Admin: 05/26/18 07:55 Dose: 1 tablet Nutritional Formula (Lactose Free) (Ensure Clear) 120 ml PO 4X/DAY [facility] Last Admin: 05/27/18 07:24 Dose: 120 ml Ondansetron HCl (Zofran) 4 mg IV Q6H PRN PRN PRN Reason: NAUSEA Last Admin: 05/25/18 08:21 Dose: 4 mg Pantoprazole Sodium (Protonix) 40 mg PO DAILY [facility] Last Admin: 05/26/18 09:54 Dose: 40 mg Potassium Chloride (K-Dur) 20 [facility] Potassium Phos/Sodium Phos (Neutra-Phos Packet) 1 packet PO 4X/DAY [facility] Last Admin: 05/26/18 21:30 Dose: 1 packet Sertraline HCl (Zoloft) 100 mg PO DAILY [facility] Last Admin: 05/26/18 09:55 Dose: 100 mg Sodium Chloride () 10 ml IV UD PRN PRN Reason: VAD FLUSH Last Admin: 05/27/18 06:48 Dose: 10 ml Medical Necessity - Tobacco Use Smoking Status: Current some day smoker Tobacco Use: Cigarettes Assessment/Plan All Active Problems (Last Updated 01/08/18 @ 13:22 by Rosalie Vickers) Abdominal pain, vomiting, and diarrhea (Acute) SIRS (systemic inflammatory response syndrome) (Resolved) Patient is a 57-year-old lady with history of myelodysplastic syndrome who is been on treatment for the past 8 years last chemo being a month prior to admission who presented with abdominal cramping associated with diarrhea. An assessment of suspected colitis made admitted to regular nursing floor for further management. 1. Acute colitis ruling out infectious etiologies stool for C. difficile came back negative other enteric pathogen panel pending. CT of the abdomen with pelvis ordered for subsequent evaluation. Patient empirically started on Cipro and Flagyl discontinued on 05/27/2018 2. Severe protein calorie malnutrition with BMI of 14 and hypoalbuminemia. Nutritional consultation obtained 3. Hypocalcemia attributed to patient's hypoalbuminemia, patient low calcium repleted per protocol 4. Myelodysplastic syndrome patient is followed by Dr. Cabrera as outpatient on chemo 5. Pulmonary fibrosis 6. Hypertension-blood pressure controlled, currently not on any medications 7. 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 Tobacco dependence counseled on cessation, offered nicotine patch for tobacco cravings 9. Chronic alcohol abuse counseled on cessation 10. Depression with anxiety 11. Anemia secondary to anemia as a result of myelodysplastic syndrome monitoring H&H with plan to transfuse patient become symptomatic or hemoglobin falls below 7 12. Dyslipidemia 13. DVT prophylaxis SCDs 10. Gastric thickening based on CT findings given patient history of significant weight loss as well as alcohol use consultation was placed to general surgery for possible endoscopic evaluation Case was discussed with Dr. Raymundo plans for patient to undergo endoscopic evaluation as outpatient when medically stable 14. Suspected aspiration pneumonia patient is on Unasyn. Zithromax added for atypical coverage 15. New onset rash on her back do suspect contact dermatitis however if this becomes extensive 1 of the antibiotic she is on is probably the offending agent Active Medications Acetaminophen (Tylenol) 650 mg PO Q4H PRN PRN PRN Reason: PAIN Last Admin: 05/27/18 07:28 Dose: 650 mg Albuterol Sulfate (Ventolin Aerosols) 2.5 mg INHALATION Q2H PRN PRN PRN Reason: WHEEZING Albuterol/Ipratropium (Duoneb) 3 ml INHALATION Q4HWA.RT [facility] Last Admin: 05/27/18 06:35 Dose: 3 ml Calamine/Phenol (Calmoseptine Ointment) 1 applic TOPICAL TID [facility]; Protocol Last Admin: 05/27/18 06:43 Dose: 1 applicatio Calcium Carbonate (Tums) 1,000 mg PO DAILY@0800 [facility] Last Admin: 05/26/18 07:55 Dose: 1,000 mg Calcium/Vitamin D (Os-Óscar 500mg + D) 1 tablet PO TIDCM [facility] Ergocalciferol (Vitamin D) 50,000 unit PO Q7D [facility] Gabapentin (Neurontin) 800 mg PO TIDCM [facility] Last Admin: 05/27/18 07:25 Dose: 800 mg Heparin Sodium (Beef Lung) (Heparin 500 Unit/5 Ml (100/Ml)) 500 unit IV UD PRN PRN Reason: HEPARIN FLUSH Ampicillin Sodium/Sulbactam (Sodium 3 gm/ Sodium Chloride) 112 mls @ 150 mls/hr IV Q8 [facility] Last Admin: 05/27/18 06:42 Dose: 150 mls/hr Azithromycin 500 mg/ Dextrose 255 mls @ 250 mls/hr IV Q24 [facility] Last Admin: 05/26/18 05:36 Dose: 250 mls/hr Sodium Chloride () 1,000 mls @ 100 mls/hr IV .Q10H [facility] Last Admin: 05/27/18 04:50 Dose: 100 mls/hr Calcium Gluconate 2 gm/ (Dextrose) 120 mls @ 60 mls/hr IV X1 ONE Stop: 05/27/18 08:38 Potassium Chloride 10 meq/ N/A 100 mls @ 100 mls/hr IV Q1H [facility] Stop: 05/27/18 11:59 Lorazepam (Ativan) 0.5 mg PO BID [facility] Last Admin: 05/26/18 21:30 Dose: 0.5 mg Metronidazole (Flagyl) 500 mg PO 4X/DAYCM [facility] Last Admin: 05/27/18 07:25 Dose: 500 mg Multivitamins/Minerals (Multivitamin With Minerals) [facility] Last Admin: 05/26/18 07:55 Dose: 1 tablet Nutritional Formula (Lactose Free) (Ensure Clear) 120 ml PO 4X/DAY [facility] Last Admin: 05/27/18 07:24 Dose: 120 ml Ondansetron HCl (Zofran) 4 mg IV Q6H PRN PRN PRN Reason: NAUSEA Last Admin: 05/25/18 08:21 Dose: 4 mg Pantoprazole Sodium (Protonix) 40 mg PO DAILY [facility] Last Admin: 05/26/18 09:54 Dose: 40 mg Potassium Chloride (K-Dur) 20 [facility] [facility] Potassium Phos/Sodium Phos (Neutra-Phos Packet) 1 packet PO 4X/DAY [facility] Last Admin: 05/26/18 21:30 Dose: 1 packet Sertraline HCl (Zoloft) 100 mg PO DAILY [facility] Last Admin: 05/26/18 09:55 Dose: 100 mg Sodium Chloride () 10 ml IV UD PRN PRN Reason: VAD FLUSH Last Admin: 05/27/18 06:48 Dose: 10 ml Clinical Impression(s) from Imaging Studies Chest X-Ray 05/24/18 15:44 IMPRESSION: Lower lung infiltrates or edema on the left more than the right Electronically Signed: William Ann MD at 16:13 EDT , Service support , Abdomen/Pelvis CT 05/25/18 07:59 IMPRESSION: Wall thickening of the distal stomach with gastritis versus ulcer disease. No obstruction. L3 compression fracture. Fibrotic densities with left lower lung airspace consolidation. Electronically Signed: William Ann MD at 11:46 EDT , Service support , Chest X-Ray 05/27/18 06:57 IMPRESSION: Interval development of bilateral lower lobe, right middle lobe and lingular segment interstitial pneumonias. In correlation with the CT of the abdomen and pelvis development of pulmonary edema is not likely. COPD. Electronically Signed: Shaun Patterson MD at 7:50 EDT , Service support , Code Visit Inpatient E&M: 61798 Subs Hosp L3
--- NOTE | 2018-05-27 08:08 | PN_ITS ---
Patient Problems: Active and Suspected Problems (Last Updated 01/08/18 @ 13:22 by Rosalie Vickers) Abdominal pain, vomiting, and diarrhea (Acute) Subjective: Patient went into SVT as well as episodes of nonsustained VT electrolytes significant for calcium of 5.9 as well as potassium of 3.2. Patient was also noted to be dyspneic chest x-ray obtained subsequently demonstrated Interval development of bilateral lower lobe, right middle lobe and lingular segment interstitial pneumonias. Patient was subsequently started on Unasyn as well as Zithromax by the covering night physician. Objective: GENERAL: cachectic HEENT: Atraumatic; moist oral mucosa EYES; Anicteric, Normal Conjunctiva NECK; supple, normal thyroid, no distended JVD. RESPIRATORY: Diminished to auscultation bilaterally, CARDIOVASCULAR: Regular S1 S2, no audible murmurs GI: soft, non-tender, normoactive bowel sounds, : No Renal angle tenderness; No reis EXTREMITIES: No edema, no clubbing, no cyanosis. MUSCULOSKELTAL: No Joint Tenderness; no muscle waisting NEURO: Awake; no lateralizing signs. SKIN: Dry; papular rash on her back PSYCH; Normal affect Vitals/I&O's: Vital Signs Temp Pulse Resp BP Pulse Ox 98.4 F 103 H 18 110/68 96 05/27/18 07:41 05/27/18 07:41 05/27/18 07:41 05/27/18 07:41 05/27/18 07:41 Oxygen Flow Rate (L/min) 3 Oxygen Delivery Method Nasal Cannula Weight: 38.192 kg Body Mass Index (BMI) 14.0 Intake and Output for Last 24 Hours 05/25/18 05/26/18 05/27/18 23:59 23:59 23:59 Intake Total 5490 / 5490 3081 / 3081 2561 / 2561 Output Total 2650 / 2650 1800 / 1800 1400 / 1400 Balance 2840 / 2840 1281 / 1281 1161 / 1161 Microbiology Past 72 Hours 05/24/18 20:54 Stool Enteric Bacteriology - Final 05/24/18 20:54 Stool C. difficile DNA Amplification - Final Laboratory Results 05/26/18 07:57: WBC 4.7, RBC 2.52 L, Hgb 8.4 L, Hct 25.4 L, MCV 100.8 H, MCH 33.3 H, MCHC 33.1, RDW 16.7 H, RDW Differential 59.3 H, Plt Count 72 L, MPV 9.7 05/26/18 07:58: Sodium 141, Potassium 3.3 L, Chloride 113 H, Carbon Dioxide 20.0 L, Anion Gap 8, BUN 4 L, Creatinine 0.62, Estim Creat Clear Calc 60.36, Est GFR (MDRD) Af Amer 127, Est GFR (MDRD) Non-Af 105, BUN/Creatinine Ratio 6.4 L, Glucose 61 L, Calcium 6.0 L*, Magnesium 1.5 L 05/27/18 05:30: WBC 7.5, RBC 2.76 L, Hgb 9.1 L, Hct 27.8 L, MCV 100.7 H, MCH 33.0 H, MCHC 32.7, RDW 16.7 H, RDW Differential 59.3 H, Plt Count 76 L, MPV 11.0 05/27/18 05:30: Sodium 144, Potassium 3.2 L, Chloride 116 H, Carbon Dioxide 19.0 L, Anion Gap 9, BUN 4 L, Creatinine 0.53 L, Estim Creat Clear Calc 70.61, Est GFR (MDRD) Af Amer 153, Est GFR (MDRD) Non-Af 127, BUN/Creatinine Ratio 7.6 L, Glucose 90, Calcium 5.9 L*, Magnesium 2.1 Current Medications Acetaminophen (Tylenol) 650 mg PO Q4H PRN PRN PRN Reason: PAIN Last Admin: 05/27/18 07:28 Dose: 650 mg Albuterol Sulfate (Ventolin Aerosols) 2.5 mg INHALATION Q2H PRN PRN PRN Reason: WHEEZING Albuterol/Ipratropium (Duoneb) 3 ml INHALATION Q4HWA.RT [facility] Last Admin: 05/27/18 06:35 Dose: 3 ml Calamine/Phenol (Calmoseptine Ointment) 1 applic TOPICAL TID [facility]; Protocol Last Admin: 05/27/18 06:43 Dose: 1 applicatio Calcium Carbonate (Tums) 1,000 mg PO DAILY@0800 [facility] Last Admin: 05/26/18 07:55 Dose: 1,000 mg Calcium/Vitamin D (Os-Óscar 500mg + D) 1 tablet PO TIDCM [facility] Ergocalciferol (Vitamin D) 50,000 unit PO Q7D [facility] Gabapentin (Neurontin) 800 mg PO TIDCM [facility] Last Admin: 05/27/18 07:25 Dose: 800 mg Heparin Sodium (Beef Lung) (Heparin 500 Unit/5 Ml (100/Ml)) 500 unit IV UD PRN PRN Reason: HEPARIN FLUSH Ampicillin Sodium/Sulbactam (Sodium 3 gm/ Sodium Chloride) 112 mls @ 150 mls/hr IV Q8 [facility] Last Admin: 05/27/18 06:42 Dose: 150 mls/hr Azithromycin 500 mg/ Dextrose 255 mls @ 250 mls/hr IV Q24 [facility] Last Admin: 05/26/18 05:36 Dose: 250 mls/hr Sodium Chloride () 1,000 mls @ 100 mls/hr IV .Q10H [facility] Last Admin: 05/27/18 04:50 Dose: 100 mls/hr Calcium Gluconate 2 gm/ (Dextrose) 120 mls @ 60 mls/hr IV X1 ONE Stop: 05/27/18 08:38 Potassium Chloride 10 meq/ N/A 100 mls @ 100 mls/hr IV Q1H [facility] Stop: 05/27/18 11:59 Lorazepam (Ativan) 0.5 mg PO BID [facility] Last Admin: 05/26/18 21:30 Dose: 0.5 mg [facility]) [facility] Last Admin: 05/27/18 07:25 Dose: 500 mg Multivitamins/Minerals (Multivitamin With Minerals) [facility] Last Admin: 05/26/18 07:55 Dose: 1 tablet Nutritional Formula (Lactose Free) (Ensure Clear) 120 ml PO 4X/DAY [facility] Last Admin: 05/27/18 07:24 Dose: 120 ml Ondansetron HCl (Zofran) 4 mg IV Q6H PRN PRN PRN Reason: NAUSEA Last Admin: 05/25/18 08:21 Dose: 4 mg Pantoprazole Sodium (Protonix) 40 mg PO DAILY [facility] Last Admin: 05/26/18 09:54 Dose: 40 mg Potassium Chloride (K-Dur) [facility] Potassium Phos/Sodium Phos (Neutra-Phos Packet) 1 packet PO 4X/DAY [facility] Last Admin: 05/26/18 21:30 Dose: 1 packet Sertraline HCl (Zoloft) 100 mg PO DAILY [facility] Last Admin: 05/26/18 09:55 Dose: 100 mg Sodium Chloride () 10 ml IV UD PRN PRN Reason: VAD FLUSH Last Admin: 05/27/18 06:48 Dose: 10 ml Medical Necessity - Tobacco Use Smoking Status: Current some day smoker Tobacco Use: Cigarettes Assessment/Plan All Active Problems (Last Updated 01/08/18 @ 13:22 by Rosalie Vickers) Abdominal pain, vomiting, and diarrhea (Acute) SIRS (systemic inflammatory response syndrome) (Resolved) Patient is a 57-year-old lady with history of myelodysplastic syndrome who is been on treatment for the past 8 years last chemo being a month prior to admission who presented with abdominal cramping associated with diarrhea. An assessment of suspected colitis made admitted to regular nursing floor for [facility] er management. 1. Acute colitis ruling out infectious etiologies stool for C. difficile came back negative other enteric pathogen panel pending. CT of the abdomen with pelvis ordered for subsequent evaluation. Patient empirically started on Cipro and Flagyl discontinued on 05/27/2018 2. Severe protein calorie malnutrition with BMI of 14 and hypoalbuminemia. Nutritional consultation obtained 3. Hypocalcemia attributed to patient's hypoalbuminemia, patient low calcium repleted per protocol 4. Myelodysplastic syndrome patient is followed by Dr. Cabrera as outpatient on chemo 5. Pulmonary fibrosis 6. Hypertension-blood pressure controlled, currently not on any medications 7. 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 Tobacco dependence counseled on cessation, offered nicotine patch for tobacco cravings 9. Chronic alcohol abuse counseled on cessation 10. Depression with anxiety 11. Anemia secondary to anemia as a result of myelodysplastic syndrome monitoring H&H with plan to transfuse patient become symptomatic or hemoglobin falls below 7 12. Dyslipidemia 13. DVT prophylaxis SCDs 10. Gastric thickening based on CT findings given patient history of significant weight loss as well as alcohol use consultation was placed to general surgery for possible endoscopic evaluation Case was discussed with Dr. Raymundo plans for patient to undergo endoscopic evaluation as outpatient when medically stable 14. Suspected aspiration pneumonia patient is on Unasyn. Zithromax added for atypical coverage 15. New onset rash on her back do suspect contact dermatitis however if this becomes extensive 1 of the antibiotic she is on is probably the offending agent Active Medications Acetaminophen (Tylenol) 650 mg PO Q4H PRN PRN PRN Reason: PAIN Last Admin: 05/27/18 07:28 Dose: 650 mg Albuterol Sulfate (Ventolin Aerosols) 2.5 mg INHALATION Q2H PRN PRN PRN Reason: WHEEZING Albuterol/Ipratropium (Duoneb) 3 ml INHALATION Q4HWA.RT [facility] Last Admin: 05/27/18 06:35 Dose: 3 ml Calamine/Phenol (Calmoseptine Ointment) 1 applic TOPICAL TID [facility]; Protocol Last Admin: 05/27/18 06:43 Dose: 1 applicatio Calcium Carbonate (Tums) 1,000 mg PO DAILY@0800 [facility] Last Admin: 05/26/18 07:55 Dose: 1,000 mg Calcium/Vitamin D (Os-Óscar 500mg + D) 1 tablet PO TIDCM [facility] Ergocalciferol (Vitamin D) 50,000 unit PO Q7D [facility] Gabapentin (Neurontin) 800 mg PO TIDCM [facility] Last Admin: 05/27/18 07:25 Dose: 800 mg Heparin Sodium (Beef Lung) (Heparin 500 Unit/5 Ml (100/Ml)) 500 unit IV UD PRN PRN Reason: HEPARIN FLUSH Ampicillin Sodium/Sulbactam (Sodium 3 gm/ Sodium Chloride) 112 mls @ 150 mls/hr IV Q8 [facility] Last Admin: 05/27/18 06:42 Dose: 150 mls/hr Azithromycin 500 mg/ Dextrose 255 mls @ 250 mls/hr IV Q24 [facility] Last Admin: 05/26/18 05:36 Dose: 250 mls/hr Sodium Chloride () 1,000 mls @ 100 mls/hr IV .Q10H [facility] Last Admin: 05/27/18 04:50 Dose: 100 mls/hr Calcium Gluconate 2 gm/ (Dextrose) 120 mls @ 60 mls/hr IV X1 ONE Stop: 05/27/18 08:38 Potassium Chloride 10 meq/ N/A 100 mls @ 100 mls/hr IV Q1H [facility] Stop: 05/27/18 11:59 Lorazepam (Ativan) 0.5 mg PO BID [facility] Last Admin: 05/26/18 21:30 Dose: 0.5 mg Metronidazole (Flagyl) 500 mg PO 4X/DAYCM [facility] Last Admin: 05/27/18 07:25 Dose: 500 mg Multivitamins/Minerals (Multivitamin With Minerals) 1 tablet PO DAILYCM [facility] Last Admin: 05/26/18 07:55 Dose: 1 tablet Nutritional Formula (Lactose Free) (Ensure Clear) 120 ml PO 4X/DAY [facility] Last Admin: 05/27/18 07:24 Dose: 120 ml Ondansetron HCl (Zofran) 4 mg IV Q6H PRN PRN PRN Reason: NAUSEA Last Admin: 05/25/18 08:21 Dose: 4 mg Pantoprazole Sodium (Protonix) 40 mg PO DAILY [facility] Last Admin: 05/26/18 09:54 Dose: 40 mg Potassium Chloride (K-Dur) [facility] Potassium Phos/Sodium Phos (Neutra-Phos Packet) 1 packet PO 4X/DAY [facility] Last Admin: 05/26/18 21:30 Dose: 1 packet Sertraline HCl (Zoloft) 100 mg PO DAILY [facility] Last Admin: 05/26/18 09:55 Dose: 100 mg Sodium Chloride () 10 ml IV UD PRN PRN Reason: VAD FLUSH Last Admin: 05/27/18 06:48 Dose: 10 ml Clinical Impression(s) from Imaging Studies Chest X-Ray 05/24/18 15:44 IMPRESSION: Lower lung infiltrates or edema on the left more than the right Electronically Signed: William Ann MD at 16:13 EDT , Service support , Abdomen/Pelvis CT 05/25/18 07:59 IMPRESSION: Wall thickening of the distal stomach with gastritis versus ulcer disease. No obstruction. L3 compression fracture. Fibrotic densities with left lower lung airspace consolidation. Electronically Signed: William Ann MD at 11:46 EDT , Service support , Chest X-Ray 05/27/18 06:57 IMPRESSION: Interval development of bilateral lower lobe, right middle lobe and lingular segment interstitial pneumonias. In correlation with the CT of the abdomen and pelvis development of pulmonary edema is not likely. COPD. Electronically Signed: Shaun Patterson MD at 7:50 EDT , Service support , Code Visit Inpatient E&M: 17795 Subs Hosp L3
[2018-05-27] MEDS: Multivitamins,Ther W-Minerals Tablet 1 TABLET PO (08:10)
[2018-05-27] MEDS: Calcium Carb/Vitamin D 1 TABLET Tablet PO ×3 (08:12→17:11)
[2018-05-27] MEDS: Pantoprazole Sodium 40 MG Tablet PO (09:33)
[2018-05-27] MEDS: Sertraline 100 MG Tablet PO (09:33)
[2018-05-27] MEDS: Calcium Carbonate 500 MG Tablet 1000 MG PO (09:33)
[2018-05-27] MEDS: LORazepam 0.5 MG Tablet PO ×2 (09:33→21:36)
[2018-05-27] MEDS: Na Biphos/Potassium Phosphate PACKET 1 PACKET PO ×4 (09:33→21:36)
[2018-05-27 14:20] LABS: Anion Gap 6 (5-15); BUN 4 mg/dL (7-18); BUN/Creat Ratio 6.7 RATIO (10-20); Calcium,Total 6.4 mg/dL (8.5-10.1); Chloride 117 mmol/L (98-107); EST Glomerular Filtration Rate 110 mL/min (>60); Est Glom Filt Rate - Afr Amer 133 mL/min (>60); Estimated Creatinine Clearance 62.37 ml/min; Glucose 164 mg/dL (74-106); Potassium 4.6 mmol/L (3.5-5.1); Sodium Level 141 mmol/L (136-145)
[2018-05-27] MEDS: Hydrocortisone 25 MG Suppository RECTAL (17:28)
[2018-05-27] MEDS: Furosemide 40 MG/4 ML Vial IV (18:15)
--- NOTE | 2018-05-27 18:41 | NURSING ---
Addendum entered by Kaci Wright 05/27/18 18:46: Pt reports urinating x3 within 15 minutes of administration. She reports that she is feeling better and states only complaint is a small headache. pt denies further needs. Resting in bed at this time. Original Note: Jovon called this RN into room and reported that pt c/o SOB, Respirations 28, lungs moist, hr 123 and c/o chest pain. This RN called PSN and notified of stat EKG per protocol. Dr. Lynne notified via [facility] and called the unit. He ordered IV lasix and stated that he did not want ekg or cxr ordered. This RN called PSN and notified them of cancellation of EKG due to dr. john. Dr. Lynne notified of IVF running at 100- and ordered to d/c but keep kvo.
[2018-05-27] MEDS: Metoprolol Tartrate 5 MG/5 ML Vial IV ×2 (20:12→22:33)
[2018-05-28] VITALS (18 sets, daily range): BP systolic 82–117; BP diastolic 50–70; PULSE 74–129; RESP 18–24; TEMP 36.4–37.8; O2SAT 90–99
[2018-05-28] MEDS: Menthol/Lanolin/Calamine/Znox 113 GM Tube 1 APPLIC TOPICAL (05:36)
[2018-05-28] MEDS: 0.9% NaCl VAD Flush 10 ML IV ×2 (05:36→05:38)
[2018-05-28] MEDS: Ipratropium/Albuterol Sulfate 3 ML AMPUL.NEB INHALATION ×5 (05:48→23:40)
[2018-05-28 05:55] LABS: Hematocrit 24.7 % (37-47); Hemoglobin 7.9 g/dl (12.0-15.0); Mean Corpuscular Hgb 32.4 pg (27.0-32.0); Mean Corpuscular Volume 101.2 fL (81-99); Mean Platelet Vol. 11.1 fl (6.2-12.0); Platelet Count 65 K/mm3 (150-450); RBC Distribution Width CV 17.1 % (11.6-14.6); RBC Distribution Width SD 60.5 fl (35.1-43.9); Red Blood Count 2.44 M/mm3 (4.2-5.4); White Blood Count 5.6 K/mm3 (4.4-11.0)
[2018-05-28 06:03] LABS: Anion Gap 7 (5-15); BUN 9 mg/dL (7-18); BUN/Creat Ratio 16.2 RATIO (10-20); Calcium,Total 6.8 mg/dL (8.5-10.1); Chloride 112 mmol/L (98-107); Creatinine, Serum 0.56 mg/dL (0.55-1.02); EST Glomerular Filtration Rate 119 mL/min (>60); Est Glom Filt Rate - Afr Amer 144 mL/min (>60); Estimated Creatinine Clearance 66.83 ml/min; Glucose 79 mg/dL (74-106); Potassium 4.8 mmol/L (3.5-5.1); Sodium Level 142 mmol/L (136-145)
[2018-05-28 06:21] LABS: Scan Indicated on CBC? Y/N NO
[2018-05-28 08:10] LABS: Magnesium 1.8 mg/dL (1.6-2.6)
--- NOTE | 2018-05-28 08:22 | PCM.PN.HOSP ---
Patient Problems: Active and Suspected Problems (Last Updated 01/08/18 @ 13:22 by Rosalie Vickers) Abdominal pain, vomiting, and diarrhea (Acute) Subjective: Patient was seen and examined. No acute events overnight. Complains of feeling generally weak, denies any chest pain or dizziness or palpitations. Still has intermittent abdominal cramping, has had one bowel movement at the time of being examined. Had 4 bowel movements the day prior Telemetry shows tachycardia Vitals/I&O's: Vital Signs Temp Pulse Resp BP Pulse Ox 97.6 F L 86 22 H 86/56 L 96 05/28/18 08:00 05/28/18 08:00 05/28/18 08:00 05/28/18 08:00 05/28/18 08:00 Oxygen Flow Rate (L/min) 2 Oxygen Delivery Method Nasal Cannula Weight: 38.192 kg Body Mass Index (BMI) 14.0 Intake and Output for Last 24 Hours 05/26/18 05/27/18 05/28/18 23:59 23:59 23:59 Intake Total 3081 / 3081 5277 / 5277 115 / 115 Output Total 1800 / 1800 1920 / 1920 300 / 300 Balance 1281 / 1281 3357 / 3357 -185 / -185 General: Alert, Oriented x3, Cooperative, No apparent distress, - - Cachectic, on 3 L of oxygen HEENT: Atraumatic, PERRLA, EOMI, Normocephalic Oral: Moist Mucosa Neck: Supple, No JVD, Negative Carotid Bruits Lungs: Normal air movement, Diminished - at the lung bases Cardiovascular: Regular rate, Regular Rhythm, Normal S1, Normal S2, No murmurs Abdomen: Bowel Sounds Present, Soft, Non-Distended, No Hepato-splenomegaly, Tender - Slightly tender in the epigastric region Extremities: No edema Skin: No rashes, No breakdown Musculoskeletal: No Tenderness to Palpation of Joints or Extremities Lymphatic: No Cervical, Supraclavicular, or Inguinal Adenopathy Neurological: Cranial nerves II-XII grossly intact, Neuro grossly intact Psych/Mental Status: Normal Affect, Appropriate Microbiology Past 72 Hours 05/24/18 20:54 Stool Enteric Bacteriology - Final Laboratory Results 05/27/18 08:34: Ionized Calcium Pending 05/27/18 13:53: Sodium 141, Potassium 4.6, Chloride 117 H, Carbon Dioxide 18.0 L, Anion Gap 6, BUN 4 L, Creatinine 0.60, Estim Creat Clear Calc 62.37, Est GFR (MDRD) Af Amer 133, Est GFR (MDRD) Non-Af 110, BUN/Creatinine Ratio 6.7 L, Glucose 164 H, Calcium 6.4 L* 05/28/18 05:30: WBC 5.6, RBC 2.44 L, Hgb 7.9 L, Hct 24.7 L, MCV 101.2 H, MCH 32.4 H, MCHC 32.0, RDW 17.1 H, RDW Differential 60.5 H, Plt Count 65 L, MPV 11.1 05/28/18 05:30: Sodium 142, Potassium 4.8, Chloride 112 H, Carbon Dioxide 23.0, Anion Gap 7, BUN 9, Creatinine 0.56, Estim Creat Clear Calc 66.83, Est GFR (MDRD) Af Amer 144, Est GFR (MDRD) Non-Af 119, BUN/Creatinine Ratio 16.2, Glucose 79, Calcium 6.8 L 05/28/18 05:30: Magnesium 1.8 Current Medications Acetaminophen (Tylenol) 650 mg PO Q4H PRN PRN PRN Reason: PAIN Last Admin: 05/27/18 17:34 Dose: 650 mg Albuterol Sulfate (Ventolin Aerosols) 2.5 mg INHALATION Q2H PRN PRN PRN Reason: WHEEZING Albuterol/Ipratropium (Duoneb) 3 ml INHALATION Q4HWA.RT [facility] Last Admin: 05/28/18 05:48 Dose: 3 ml Calamine/Phenol (Calmoseptine Ointment) 1 applic TOPICAL TID [facility]; Protocol Last Admin: 05/28/18 05:36 Dose: 1 applicatio Calcium Carbonate (Tums) 1,000 mg PO DAILY@0800 [facility] Last Admin: 05/27/18 09:33 Dose: 1,000 mg Calcium/Vitamin D (Os-Óscar 500mg + D) 1 tablet PO TIDCM [facility] Last Admin: 05/27/18 17:11 Dose: 1 tablet Ergocalciferol (Vitamin D) 50,000 unit PO Q7D [facility] Gabapentin (Neurontin) 800 mg PO TIDCM [facility] Last Admin: 05/27/18 17:11 Dose: 800 mg Heparin Sodium (Beef Lung) (Heparin 500 Unit/5 Ml (100/Ml)) 500 unit IV UD PRN PRN Reason: HEPARIN FLUSH Hydrocortisone Acetate (Anusol Hc) 25 mg RECTAL TID PRN PRN PRN Reason: Hemorrhoids Last Admin: 05/27/18 17:28 Dose: 25 mg Ampicillin Sodium/Sulbactam (Sodium 3 gm/ Sodium Chloride) 112 mls @ 150 mls/hr IV Q8 [facility] Last Admin: 05/28/18 05:36 Dose: 150 mls/hr Azithromycin 500 mg/ Dextrose 255 mls @ 250 mls/hr IV Q24 [facility] Last Admin: 05/27/18 09:32 Dose: 250 mls/hr Sodium Chloride () 1,000 mls @ 15 mls/hr IV .Q48H [facility] Last Admin: 05/27/18 20:22 Dose: Not Given Magnesium Sulfate 2 gm/ Sodium (Chloride) 104 mls @ 52 mls/hr IV X1 ONE Stop: 05/28/18 10:17 Lorazepam (Ativan) 0.5 mg PO BID [facility] Last Admin: 05/27/18 21:36 Dose: 0.5 mg Multivitamins/Minerals (Multivitamin With Minerals) [facility] Last Admin: 05/27/18 08:10 Dose: 1 tablet Nutritional Formula (Lactose Free) (Ensure Clear) 120 ml PO 4X/DAY [facility] Last Admin: 05/27/18 21:36 Dose: 120 ml Ondansetron HCl (Zofran) 4 mg IV Q6H PRN PRN PRN Reason: NAUSEA Last Admin: 05/25/18 08:21 Dose: 4 mg Pantoprazole Sodium (Protonix) 40 mg PO DAILY [facility] Last Admin: 05/27/18 09:33 Dose: 40 mg Potassium Chloride (K-Dur) [facility] Last Admin: 05/27/18 17:10 Dose: 20 meq Potassium Phos/Sodium Phos (Neutra-Phos Packet) 1 packet PO 4X/DAY [facility] Last Admin: 05/27/18 21:36 Dose: 1 packet Sertraline HCl (Zoloft) 100 mg PO DAILY [facility] Last Admin: 05/27/18 09:33 Dose: 100 mg Sodium Chloride () 10 ml IV UD PRN PRN Reason: VAD FLUSH Last Admin: 05/28/18 05:38 Dose: 10 ml Medical Necessity - Tobacco Use Smoking Status: Current some day smoker Tobacco Use: Cigarettes Assessment/Plan All Active Problems (Last Updated 01/08/18 @ 13:22 by Rosalie Vickers) Abdominal pain, vomiting, and diarrhea (Acute) SIRS (systemic inflammatory response syndrome) (Resolved) 57-year-old lady with history of myelodysplastic syndrome, last chemo being a month prior to admission admitted with abdominal cramping associated with diarrhea. 1. Acute colitis, unclear etiology for now, stool for C. difficile and enteric panel are negative. CT abdomen and pelvis shows thickening of the distal stoma, normal intestine and colon. Telemetry started on Cipro and Flagyl, switched to Unasyn, will continue empiric antibiotics for 1 week. 2. Electrolyte imbalances-hypomagnesemia, replaced, hypocalcemia-corrected calcium is 9.04 today, will trend labs in a.m. 3. Suspected aspiration pneumonia, bilateral infiltrates seen on chest x-ray on 05/27/2018, started on Unasyn and azithromycin, will aim for 1 week total antibiotic 4. Gastric thickening seen on CT abdomen, general surgery consulted, plan is outpatient follow-up, will continue on PPI 5. Severe protein calorie malnutrition, BMI 14, patient following, on supplements 6. Myelodysplastic syndrome, closed with oncology in the outpatient 7. Chronic hypoxic respiratory failure, secondary to pulmonary fibrosis, on 3 L home oxygen, will continue with prn needed breathing treatments, add incentive spirometer 8. Hypertension, controlled, will continue to monitor off medication 9. 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 Nicotine dependence, advised to quit, offered nicotine patch for tobacco cravings 11. Chronic alcohol abuse, counseled on cessation 10. Depression/anxiety, on zoloft 11. Anemia of chronic disease secondary to myelodysplastic syndrome, will continue to monitor H&H with plan to transfuse patient become symptomatic or hemoglobin falls below 7 Also check iron stores, folate, B12 12. L3 compression fracture, likely related to osteoporosis, no formal diagnosis, patient has lots of risk factors, need a DEXA scan in the outpatient, currently on calcium/vitamin D. 13. DVT PPx- SCDs. Code Visit Inpatient E&M: 52988 Subs Hosp L2
[2018-05-28 08:46] LABS: AST(SGOT) 12 U/L (15-37); Alanine Aminotransfer ALT/SGPT 14 U/L (13-56); Albumin, Serum 1.2 g/dL (3.2-5.0); Alkaline Phosphatase 121 U/L (45-117); Bilirubin, Direct 0.17 mg/dL (0.00-0.30); Globulin 4.4 g/dL (2.2-4.2); Protein, Total 5.6 g/dL (6.4-8.2)
--- NOTE | 2018-05-28 09:20 | CASEMGMT ---
Social Work Note SW faxed updated clinicals to Sofia at [facility]. Per physician pt is not ready for discharge until tomorrow. Plan: [facility] pending pre-cert Elissa Wray APPRENTICE PHOTOGRAPHER, REFINERY TECHNICIAN
[2018-05-28] MEDS: Calcium Carb/Vitamin D 1 TABLET Tablet PO ×3 (09:23→17:06)
[2018-05-28] MEDS: Gabapentin 800 MG Tablet PO ×3 (09:23→17:05)
[2018-05-28] MEDS: LORazepam 0.5 MG Tablet PO ×2 (09:24→22:16)
[2018-05-28] MEDS: Calcium Carbonate 500 MG Tablet 1000 MG PO (09:24)
[2018-05-28] MEDS: Na Biphos/Potassium Phosphate PACKET 1 PACKET PO ×4 (09:25→22:17)
[2018-05-28] MEDS: Pantoprazole Sodium 40 MG Tablet PO (09:25)
[2018-05-28] MEDS: Sertraline 100 MG Tablet PO (09:26)
[2018-05-28 10:17] LABS: Immature Platelet Fraction 5.4 % (1.0-7.9); Reticulocyte Count 1.19 % (0.5-1.5)
[2018-05-28 10:44] LABS: Iron 17 ug/dL (50-170); Iron Binding Capacity,Total 107 ug/dL (250-450); PERCENT IRON SATURATION 15.9 % (15.0-55.0); Vitamin B12 513 pg/mL (211-911)
[2018-05-28] MEDS: Multivitamins,Ther W-Minerals Tablet 1 TABLET PO (11:48)
--- NOTE | 2018-05-28 11:48 | NURSING ---
wound photo: left medial lower leg
--- NOTE | 2018-05-28 11:48 | NURSING ---
wound photo: left anterior lower leg
--- NOTE | 2018-05-28 11:49 | NURSING ---
wound photo: left elbow
[2018-05-28] MEDS: 0.9% Normal Saline 1,000 ML 75 ML IV (13:51)
--- NOTE | 2018-05-28 14:41 | CASEMGMT ---
Social Work Note SW spoke with Sofia at [facility] stating she hasn't heard anything from pt's insurance yet. Plan: [place] pending pre-cert Elissa Wray CARPET CUTTER, ACTUARY CLERK
--- NOTE | 2018-05-28 15:35 | CHAPLAIN ---
Type of Pastoral Visit ___ Initial Visit _x__ Follow-up Visit ___ On-call Visit ___ General Patient Visit ___ Spiritual Assessment ___ Family Conference ___ Bereavement ___ Rapid Response ___ Code Blue ___ Other (describe below) Pastoral Care Referral From _x__ Patient ___ Family ___ Nurse ___ Physician ___ Study Assistant ___ Cosmetics Machine Operator ___ Other (describe below) Sacrament/Intervention ___ Active listening ___ Anointing ___ Rastafarian ___ Bereavement ___ Communion ___ Alexandra exploration ___ ___ Life review _x__ Prayer ___ Reconciliation ___ Sacrament of Sick _x__ Supportive presence ___ Wedding ___ Other (describe below) Pastoral Comments family members are with her; pt says her concern is finding a place for her to go to once she is discharged; pt requests for prayer; family asks for future visits to patient
[2018-05-28] MEDS: Hydrocortisone 25 MG Suppository RECTAL (15:36)
--- NOTE | 2018-05-28 23:35 | NURSING ---
Pt's saturations were around 84% even on 4L via mouth. Placed on nonrebreather and her sats came up to upper 90's. CPS called for treatment and evaluation. They are present in the room now.
--- NOTE | 2018-05-28 23:41 | NURSING ---
Respiratory med scanned for CPS since I was in the computer already. CPS administered the breathing treatment.
[2018-05-29] VITALS (27 sets, daily range): BP systolic 98–146; BP diastolic 64–99; PULSE 99–127; RESP 12–29; TEMP 36.8–37.9; O2SAT 81–98
[2018-05-29 00:21] LABS: Allen Test POS; Base Excess -4 mmol/L (-2 to +2); Bicarbonate 20.7 mmol/L (22-26); Blood Gas Specimen Type ART; FI02 50; PO2 80 mmHG (75-100); SITE L Radial; SO2 96 % (95-99); Time Given 10; Total Carbon Dioxide 22 mmol/L; pCO2 33.5 mmHg (35-45)
--- NOTE | 2018-05-29 02:59 | NURSING ---
Pt appearing more pale, O2 continues to drop below 88%. Placed Non rebreather on, pt no longer stable on NC while sleeping.
[2018-05-29] MEDS: Ipratropium/Albuterol Sulfate 3 ML AMPUL.NEB INHALATION ×4 (03:02→18:39)
[2018-05-29] MEDS: 0.9% NaCl VAD Flush 10 ML IV ×4 (05:17→21:25)
[2018-05-29 05:55] LABS: ALB/GLOB Ratio 0.2 RATIO (0.9-2.4); AST(SGOT) 13 U/L (15-37); Alanine Aminotransfer ALT/SGPT 16 U/L (13-56); Albumin, Serum 1.3 g/dL (3.2-5.0); Alkaline Phosphatase 131 U/L (45-117); Anion Gap 8 (5-15); BUN 8 mg/dL (7-18); BUN/Creat Ratio 13.8 RATIO (10-20); Calcium,Total 7.6 mg/dL (8.5-10.1); Chloride 108 mmol/L (98-107); Creatinine, Serum 0.58 mg/dL (0.55-1.02); EST Glomerular Filtration Rate 114 mL/min (>60); Est Glom Filt Rate - Afr Amer 138 mL/min (>60); Estimated Creatinine Clearance 64.52 ml/min; Globulin 5.2 g/dL (2.2-4.2); Glucose 81 mg/dL (74-106); Potassium 5.3 mmol/L (3.5-5.1); Protein, Total 6.5 g/dL (6.4-8.2); Sodium Level 138 mmol/L (136-145)
[2018-05-29 06:49] LABS: Absolute Lymphocyte Count 0.51 X10^3/ul (0.83-4.51); Absolute Neutrophil Count 7.4 X10^3/uL (2.0-7.7); Basophil# 0.02 X10^3/uL; Basophil% 0.2 % (0-1); Differential Indicated SCAN CRITERIA MET; Eosinophil# 0.05 X10^3/uL; Eosinophils% 0.6 % (0-5); Hematocrit 27.8 % (37-47); Hemoglobin 8.9 g/dl (12.0-15.0); Lymphocyte # 0.51 X10^3/ul (4.0); Lymphocyte % 6.1 % (19-41); Mean Corpuscular Hgb 32.2 pg (27.0-32.0); Mean Corpuscular Volume 100.7 fL (81-99); Mean Platelet Vol. 11.9 fl (6.2-12.0); Monocyte# 0.36 X10^3/uL; Monocyte% 4.3 % (0-10); Neutrophil # 7.42 X10^3/uL (2.7-7.7); Neutrophil % 88.8 % (47-70); POSITIVE COUNT NO; POSITIVE DIFFERENTIAL YES; POSITIVE MORPHOLOGY NO; Platelet Count 84 K/mm3 (150-450); RBC Distribution Width CV 17.9 % (11.6-14.6); RBC Distribution Width SD 64.8 fl (35.1-43.9); Red Blood Count 2.76 M/mm3 (4.2-5.4); White Blood Count 8.4 K/mm3 (4.4-11.0)
[2018-05-29] MEDS: Acetaminophen 325 MG Tablet 650 MG PO ×2 (06:58→17:15)
[2018-05-29] MEDS: Ondansetron 4 MG/2 ML Vial IV (06:59)
--- NOTE | 2018-05-29 07:35 | RAD_ITS ---
STUDY: X-RAY CHEST REASON FOR EXAM: Female, 57 years old. Shortness of breath. TECHNIQUE: Single AP portable view of the chest. COMPARISON: Comparison is made with prior study dated May 27, 2018. FINDINGS: EKG electrodes are seen. A left-sided portacatheter is seen with the tip in the midportion of the superior vena cava. Persistent increased interstitial markings with areas of confluence and honeycombing. Limited inspiration. There has been essentially no change since prior study. There is no demonstrated pleural abnormality. Normal size heart. Normal mediastinum and joselyn. Normal visualized pulmonary arteries. There is atherosclerotic calcification of the aortic arch with tortuosity. Normal visualized thoracic spine. Normal visualized ribs, clavicles, and shoulders. There is no demonstrated abnormality of the visualized soft tissue structures of the upper abdomen. RAD/Chest 1 View (Portable) IMPRESSION: Decreased inspiratory effort as compared to prior study. Stable diffuse scarring in both lungs with the areas of confluence and honeycombing. Electronically Signed: Walt Alcantar MD at 9:17 EDT Tel [phone], Service support ,
--- NOTE | 2018-05-29 07:36 | PN_ITS ---
Patient Problems: Active and Suspected Problems (Last Updated 01/08/18 @ 13:22 by Rosalie Vickers) Abdominal pain, vomiting, and diarrhea (Acute) Subjective: Patient was seen and examined. She is been intermittently hypoxic, remains tachycardic with heart rate more than 130s for the most time. Having low-grade temperature with T-max 100.3 F. Been on Ventimask overnight. Objective: Physical exam: General: Alert, Oriented x3, Cooperative, No apparent distress, - - Cachectic, on Venturi mask HEENT: Atraumatic, PERRLA, EOMI, Normocephalic Oral: Moist Mucosa Neck: Supple, No JVD, Negative Carotid Bruits Lungs: Decreased air entry in all lung zones, bilateral crackles, coarse in both middle and lower lung zones Cardiovascular: Regular rate, Regular Rhythm, Normal S1, Normal S2, tachycardic Abdomen: Bowel Sounds Present, Soft, Non-Distended, No Hepato-splenomegaly, Tender - Slightly tender in the epigastric region Extremities: No edema Skin: No rashes, No breakdown Musculoskeletal: No Tenderness to Palpation of Joints or Extremities Lymphatic: No Cervical, Supraclavicular, or Inguinal Adenopathy Neurological: Cranial nerves II-XII grossly intact, Neuro grossly intact Psych/Mental Status: Normal Affect, Appropriate Vitals/I&O's: Vital Signs Temp Pulse Resp BP Pulse Ox 100.3 F H 124 H 18 123/76 H 91 05/29/18 06:53 05/29/18 06:53 05/29/18 06:53 05/29/18 06:53 05/29/18 06:53 Oxygen Flow Rate (L/min) 12 Oxygen Delivery Method Venturi Mask Weight: 38.192 kg Body Mass Index (BMI) 14.0 Intake and Output for Last 24 Hours 05/27/18 05/28/18 05/29/18 23:59 23:59 23:59 Intake Total 5277 / 5277 2083 / 2083 811 / 811 Output Total 1920 / 1920 500 / 500 Balance 3357 / 3357 1583 / 1583 811 / 811 Laboratory Results 05/28/18 05:30: Magnesium 1.8 05/28/18 05:30: Total Bilirubin 0.30, Direct Bilirubin 0.17, AST 12 L, ALT 14, Alkaline Phosphatase 121 H, Total Protein 5.6 L, Albumin 1.2 L, Globulin 4.4 H 05/28/18 05:30: Immature Plt Fraction 5.4, Retic Count 1.19, Immature Retic Fraction 9.20, Retic Hgb Equivalent 30.0 05/28/18 05:30: Iron 17 L, TIBC 107 L, Iron Saturation 15.9, Folate 6.10 05/28/18 05:30: Vitamin B12 513 05/29/18 00:18: Specimen Type ART, Sample Site L Radial, pH 7.40, Bicarbonate Actual 20.7 L, POC Total CO2 22, Base Excess -4 L, O2 Saturation 96, O2 % 50, ABG pCO2 33.5 L, ABG pO2 80, Mac Test POS, O2 Delivery Device Vent Mask, Blood Gas Notified Whom PREET SERNA, Blood Gas Notified Time 10 05/29/18 05:20: Sodium 138, Potassium 5.3 H, Chloride 108 H, Carbon Dioxide 22.0, Anion Gap 8, BUN 8, Creatinine 0.58, Estim Creat Clear Calc 64.52, Est GFR (MDRD) Af Amer 138, Est GFR (MDRD) Non-Af 114, BUN/Creatinine Ratio 13.8, Glucose 81, Calcium 7.6 L, Total Bilirubin 0.40, AST 13 L, ALT 16, Alkaline Phosphatase 131 H, Total Protein 6.5, Albumin 1.3 L, Globulin 5.2 H, Albumin/Globulin Ratio 0.2 L 05/29/18 05:20: WBC 8.4, RBC 2.76 L, Hgb 8.9 L, Hct 27.8 L, MCV 100.7 H, MCH 32.2 H, MCHC 32.0, RDW 17.9 H, RDW Differential 64.8 H, Plt Count 84 L, MPV 11.9, Immature Gran % (Auto) 0.000, Neut % (Auto) 88.8 H, Lymph % (Auto) 6.1 L, [place] % (Auto) 4.3, Eos % (Auto) 0.6, Baso % (Auto) 0.2, Absolute Neuts (auto) 7.4, Absolute Lymphs (auto) 0.51 L, Total Counted Not Reportable Current Medications Acetaminophen (Tylenol) 650 mg PO Q4H PRN PRN PRN Reason: PAIN Last Admin: 05/29/18 06:58 Dose: 650 mg Albuterol Sulfate (Ventolin Aerosols) 2.5 mg INHALATION Q2H PRN PRN PRN Reason: WHEEZING Albuterol/Ipratropium (Duoneb) 3 ml INHALATION Q4HWA.RT [facility] Last Admin: 05/29/18 07:29 Dose: 3 ml Calamine/Phenol (Calmoseptine Ointment) 1 applic TOPICAL TID [facility]; Protocol Last Admin: 05/29/18 05:13 Dose: Not Given Calcium Carbonate (Tums) 1,000 mg PO DAILY@0800 [facility] Last Admin: 05/28/18 09:24 Dose: 1,000 mg Calcium/Vitamin D (Os-Óscar 500mg + D) 1 tablet PO TIDCM [facility] Last Admin: 05/28/18 17:06 Dose: 1 tablet Ergocalciferol (Vitamin D) 50,000 unit PO Q7D [facility] Gabapentin (Neurontin) 800 mg PO TIDCM [facility] Last Admin: 05/28/18 17:05 Dose: 800 mg Heparin Sodium (Beef Lung) (Heparin 500 Unit/5 Ml (100/Ml)) 500 unit IV UD PRN PRN Reason: HEPARIN FLUSH Hydrocortisone Acetate (Anusol Hc) 25 mg RECTAL TID PRN PRN PRN Reason: Hemorrhoids Last Admin: 05/28/18 15:36 Dose: 25 mg Ampicillin Sodium/Sulbactam (Sodium 3 gm/ Sodium Chloride) 112 mls @ 150 mls/hr IV Q8 [facility] Last Admin: 05/29/18 05:13 Dose: 150 mls/hr Azithromycin 500 mg/ Dextrose 255 mls @ 250 mls/hr IV Q24 [facility] Last Admin: 05/28/18 09:26 Dose: 250 mls/hr Sodium Chloride () 1,000 mls @ 15 mls/hr IV .Q48H [facility] Last Admin: 05/27/18 20:22 Dose: Not Given Lorazepam (Ativan) 0.5 mg PO BID [facility] Last Admin: 05/28/18 22:16 Dose: 0.5 mg Multivitamins/Minerals (Multivitamin With Minerals) 1 tablet PO DAILYCM [facility] Last Admin: 05/28/18 11:48 Dose: 1 tablet Nutritional Formula (Lactose Free) (Ensure Clear) 120 ml PO 4X/DAY [facility] Last Admin: 05/28/18 22:17 Dose: 120 ml Ondansetron HCl (Zofran) 4 mg IV Q6H PRN PRN PRN Reason: NAUSEA Last Admin: 05/29/18 06:59 Dose: 4 mg Pantoprazole Sodium (Protonix) 40 mg PO DAILY [facility] Last Admin: 05/28/18 09:25 Dose: 40 mg Potassium Phos/Sodium Phos (Neutra-Phos Packet) 1 packet PO 4X/DAY [facility] Last Admin: 05/28/18 22:17 Dose: 1 packet Sertraline HCl (Zoloft) 100 mg PO DAILY [facility] Last Admin: 05/28/18 09:26 Dose: 100 mg Sodium Chloride () 10 ml IV UD PRN PRN Reason: VAD FLUSH Last Admin: 05/29/18 05:24 Dose: 10 ml Medical Necessity - Tobacco Use Smoking Status: Current some day smoker Tobacco Use: Cigarettes Assessment/Plan All Active Problems (Last Updated 01/08/18 @ 13:22 by Rosalie Vickers) Abdominal pain, vomiting, and diarrhea (Acute) SIRS (systemic inflammatory response syndrome) (Resolved) 57-year-old lady with history of myelodysplastic syndrome, last chemo being a month prior to admission admitted with abdominal cramping associated with diarrhea. 1. Acute on chronic hypoxic respiratory failure, likely secondary to multifocal pneumonia, worsening pulmonary fibrosis Will start patient on IV Solu-Medrol 40 mg 3 times daily, repeat chest x-ray, 2D echo start looking for cardiomyopathy, continue to wean patient off oxygen 2. Sepsis due to bilateral HCAP/ suspected aspiration pneumonia, patient has been persistently tachycardic with heart rate in the 130s, on Unasyn and azithromycin 3. Relative hypotension, intolerant of IV fluids, not on blood pressure medications, 2D echo to look for cardiomyopathy, will continue to monitor 4. Hyperkalemia secondary to oral potassium intake, will DC potassium 5. Electrolyte imbalances -resolved 6. Acute colitis, unclear etiology for now, stool for C. difficile and enteric panel are negative. CT abdomen and pelvis od admission showed thickening of the distal stomach, normal intestine and colon. Patient's has been having 2-4 bowel movements a day 7. Gastric thickening seen on CT abdomen, general surgery consulted, plan is outpatient follow-up, will continue on PPI 8. Severe protein calorie malnutrition, BMI 14, patient following, on supplements 9. Myelodysplastic syndrome, closed with oncology in the outpatient 10. 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 Nicotine dependence, advised to quit, offered nicotine patch for tobacco cravings 12. Chronic alcohol abuse, counseled on cessation 13. Depression/anxiety, on zoloft 14. Anemia of chronic disease secondary to myelodysplastic syndrome, Hb appears improved to 8.9, will continue to monitor H&H with plan to transfuse patient become symptomatic or hemoglobin falls below 7 15. L3 compression fracture, likely related to osteoporosis, no formal diagnosis, patient has lots of risk factors, need a DEXA scan in the outpatient, currently on calcium/vitamin D. 16. DVT PPx- SCDs. 17. Code status - Full Code. I discussed the entire plan of care with the patient including her respiratory status as well as her electrolytes and her sepsis. I inquired if she wanted to be intubated if her respiratory status should get worse, she appeared reluctant to answer and preferred to discuss that with the . She subsequently stated that she however would not want to be on a machine, if it comes to that. She would like to discuss that with her and get back to me this morning. Discussed in detail with Dr. Cowan, who has been treating this patient for more than 15 years, family meeting planned for this afternoon to re-discuss dose of care and CODE STATUS. Time spent discussing 18 minutes Code Visit Inpatient E&M: 48215 Subs Hosp L3 Procedures: 89763 Advncd Care Plan 30 Min
--- NOTE | 2018-05-29 07:48 | EKG12_ITS ---
Test Reason : INCR HR Blood Pressure : / mmHG Vent. Rate : 127 BPM Atrial Rate : 127 BPM P-R Int : 128 ms QRS Dur : 060 ms QT Int : 326 ms P-R-T Axes : 040 021 075 degrees QTc Int : 473 ms Sinus tachycardia Otherwise normal ECG When compared with ECG of 24-MAY-2018 16:45, ST no longer depressed in Inferior leads Confirmed by SARAH SERNA, LATASHA ([id number]), website/blog editor FAZAL STOUT ([id number]) on 06/04/2018 3:54:20 PM Referred By: Connie Carmona Confirmed By:LATASHA SMITH MD
--- NOTE | 2018-05-29 08:07 | ECHOD_ITS ---
Reason For Study: dyspnea/SOB Procedure This was a 2D Doppler, Color Flow transthoracic echocardiogram. The study was technically difficult. Exam performed portable in ICU/CCU. Left Ventricle Normal LV size. Sigmoid septum. Left ventricular systolic function is normal. The estimated ejection fraction is 60 %. Transmitral doppler flow suggestive of impaired relaxation of left ventricle. No regional wall motion abnormalities noted. Right Ventricle Normal RV size. Normal systolic function. Atria Normal left atrium. Normal right atrium. No doppler evidence for ASD. Mitral Valve There is no mitral annular calcification. Mild focal mitral valve calcification of the anterior leaflet. Trivial mitral valve insufficiency. Tricuspid Valve Normal tricuspid valve. Mild tricuspid valve insufficiency. Right ventricular systolic pressure estimated to be 40 mmHg. Aortic Valve Trisinus/trileaflet aortic valve. Mild focal aortic valve thickening. Pulmonic Valve The pulmonic valve is not well visualized. Great Vessels Normal sized aortic root. Pericardium/Pleural No pericardial effusion. MMode/2D Measurements & Calculations LVIDd: 2.9 cm IVSd: 1.0 cm Ao root diam: 2.9 cm LVIDs: 1.9 cm LVPWd: 0.97 cm LA dimension: 3.1 cm FS: 35.2 % LAV(MOD-sp4): 40.7 ml LA A4 area: 15.2 cm2 RA A4 area: 9.3 cm2 Doppler Measurements & Calculations MV E max reuben: 72.9 cm/sec Lat Peak E' Reuben: 9.8 cm/sec Med Peak E' Reuben: 7.0 cm/sec MV A max reuben: 102.3 cm/sec E/E' lat: 7.4 E/E' med: 10.5 MV E/A: 0.71 LV V1 max: 106.1 cm/sec PA V2 max: 121.2 cm/sec TR max reuben: 304.7 cm/sec LV V1 max P.5 mmHg TR max P.3 mmHg Interpretation Summary The study was technically difficult. Left ventricular systolic function is normal. The estimated ejection fraction is 60 %. Sigmoid septum. Mild focal mitral valve calcification of the anterior leaflet. Trivial mitral valve insufficiency. Mild tricuspid valve insufficiency. Mild focal aortic valve thickening. Right ventricular systolic pressure estimated to be 40 mmHg. Transmitral doppler flow suggestive of impaired relaxation of left ventricle Ordering Physician: Erica Braun Referring Physician: Hussain Reynolds Performed By: Carole Juares, SABI, RVT
--- NOTE | 2018-05-29 08:12 | PCM.PROGNOTE ---
Patient Problems: Active and Suspected Problems (Last Updated 01/08/18 @ 13:22 by Rosalie Vickers) Abdominal pain, vomiting, and diarrhea (Acute) Subjective: Continued decline since admission. Currently on 50% nonrebreather. She is tachypneic and tachycardic. Continue weight loss with anorexia despite prednisone. Increase epigastric pain CT scan indicate gastric wall thickening. She previously has thickening of the colon suggestive of colitis. Patient has a long history of tobacco abuse with COPD and pulmonary fibrosis and chronic hypoxemia. Performance status also declined to minimal activity outside almost completely bedbound at this point. Continue require blood transfusion for MDS and refractory anemia. - Physical Exam General: Alert, Oriented x3 Oral: No Gingival or Mucosal Lesions/ Ulcerations Neck: Supple, No JVD Lungs: Diminished, Rales, Short of Breath, Tachypneic, Using Accessory Muscles Cardiovascular: Normal S1, Normal S2, No murmurs, Tachycardic Abdomen: Soft, Non-Distended, No Hepato-splenomegaly, Hypoactive Bowel Sounds Extremities: No clubbing, No cyanosis, No edema Skin: No rashes, Skin Tear, - - No petechiae, multiple ecchymosis Musculoskeletal: No Tenderness to Palpation of Joints or Extremities, Cachexia, Muscle Wasting Lymphatic: No Cervical, Supraclavicular, or Inguinal Adenopathy Neurological: Neuro grossly intact Psych/Mental Status: Anxious Comment: Palliative performance index: > 4.0 -mortality and median prognosis < 12 d Vital Signs Temp Pulse Resp BP Pulse Ox 100.3 F H 127 H 18 123/76 H 90 05/29/18 06:53 05/29/18 07:29 05/29/18 07:29 05/29/18 06:53 05/29/18 07:29 Oxygen Flow Rate (L/min) 12 Oxygen Delivery Method Venturi Mask Weight: 84 lb 3.2 oz Body Mass Index (BMI) 14.0 Intake and Output for Last 24 Hours 05/27/18 05/28/18 05/29/18 23:59 23:59 23:59 Intake Total 5277 / 5277 2083 / 2083 811 / 811 Output Total 1920 / 1920 500 / 500 Balance 3357 / 3357 1583 / 1583 811 / 811 Laboratory Tests Past 24 Hrs 05/28/18 05/28/18 05/28/18 05:30 05:30 05:30 WBC RBC Hgb Hct MCV MCH MCHC RDW RDW Differential Plt Count MPV Immature Gran % (Auto) Neut % (Auto) Lymph % (Auto) [place] % (Auto) Eos % (Auto) Baso % (Auto) Absolute Neuts (auto) Absolute Lymphs (auto) Total Counted Immature Plt Fraction 5.4 ESR Retic Count 1.19 Immature Retic Fraction 9.20 Retic Hgb Equivalent 30.0 Specimen Type Sample Site pH Bicarbonate Actual POC Total CO2 Base Excess O2 Saturation O2 % ABG pCO2 ABG pO2 Mac Test O2 Delivery Device Blood Gas Notified Whom Blood Gas Notified Time Sodium Potassium Chloride Carbon Dioxide Anion Gap BUN Creatinine Estim Creat Clear Calc Est GFR (MDRD) Af Amer Est GFR (MDRD) Non-Af BUN/Creatinine Ratio Glucose Calcium Iron 17 L TIBC 107 L Iron Saturation 15.9 Total Bilirubin 0.30 Direct Bilirubin 0.17 AST 12 L ALT 14 Alkaline Phosphatase 121 H Total Protein 5.6 L Albumin 1.2 L Globulin 4.4 H Albumin/Globulin Ratio Lipase Vitamin B12 Folate 6.10 05/28/18 05/29/18 05/29/18 05:30 00:18 05:20 WBC RBC Hgb Hct MCV MCH MCHC RDW RDW Differential Plt Count MPV Immature Gran % (Auto) Neut % (Auto) Lymph % (Auto) [place] % (Auto) Eos % (Auto) Baso % (Auto) Absolute Neuts (auto) Absolute Lymphs (auto) Total Counted Immature Plt Fraction ESR Retic Count Immature Retic Fraction Retic Hgb Equivalent Specimen Type ART Sample Site L Radial pH 7.40 Bicarbonate Actual 20.7 L POC Total CO2 22 Base Excess -4 L O2 Saturation 96 O2 % 50 ABG pCO2 33.5 L ABG pO2 80 Mac Test POS O2 Delivery Device Vent Mask Blood Gas Notified Whom [facility] Blood Gas Notified Time 10 Sodium 138 Potassium 5.3 H Chloride 108 H Carbon Dioxide 22.0 Anion Gap 8 BUN 8 Creatinine 0.58 Estim Creat Clear Calc 64.52 Est GFR (MDRD) Af Amer 138 Est GFR (MDRD) Non-Af 114 BUN/Creatinine Ratio 13.8 Glucose 81 Calcium 7.6 L Iron TIBC Iron Saturation Total Bilirubin 0.40 Direct Bilirubin AST 13 L ALT 16 Alkaline Phosphatase 131 H Total Protein 6.5 Albumin 1.3 L Globulin 5.2 H Albumin/Globulin Ratio 0.2 L Lipase Vitamin B12 513 Folate 05/29/18 05/29/18 05/29/18 05:20 05:20 05:20 WBC 8.4 RBC 2.76 L Hgb 8.9 L Hct 27.8 L MCV 100.7 H MCH 32.2 H MCHC 32.0 RDW 17.9 H RDW Differential 64.8 H Plt Count 84 L MPV 11.9 Immature Gran % (Auto) 0.000 Neut % (Auto) 88.8 H Lymph % (Auto) 6.1 L [place] % (Auto) 4.3 Eos % (Auto) 0.6 Baso % (Auto) 0.2 Absolute Neuts (auto) 7.4 Absolute Lymphs (auto) 0.51 L Total Counted Not Reportable Immature Plt Fraction ESR Pending Retic Count Immature Retic Fraction Retic Hgb Equivalent Specimen Type Sample Site pH Bicarbonate Actual POC Total CO2 Base Excess O2 Saturation O2 % ABG pCO2 ABG pO2 Mac Test O2 Delivery Device Blood Gas Notified Whom Blood Gas Notified Time Sodium Potassium Chloride Carbon Dioxide Anion Gap BUN Creatinine Estim Creat Clear Calc Est GFR (MDRD) Af Amer Est GFR (MDRD) Non-Af BUN/Creatinine Ratio Glucose Calcium Iron TIBC Iron Saturation Total Bilirubin Direct Bilirubin AST ALT Alkaline Phosphatase Total Protein Albumin Globulin Albumin/Globulin Ratio Lipase Pending Vitamin B12 Folate Medical Necessity - Tobacco Use Smoking Status: Current some day smoker Tobacco Use: Cigarettes Assessment/Plan All Active Problems (Last Updated 01/08/18 @ 13:22 by Rosalie Vickers) Abdominal pain, vomiting, and diarrhea (Acute) SIRS (systemic inflammatory response syndrome) (Resolved) Palliative performance index: Performance status < 50% (2.0) Dyspnea at rest (2.5) Severe anorexia (2.0) Edema (0) Delirium (0) Score = 6.5 1) acute respiratory failure-history of COPD, pulmonary fibrosis, tobacco abuse, pneumonitis (possible aspiration, hospital-acquired); prognosis very poor -Transfer to ICU -Continue broad-spectrum antibiotic -Consult pulmonary medicine -Family conference to discuss goals of care and CODE STATUS this afternoon. ' 2) chronic abdominal pain with diarrhea, anorexia and weight loss.-History of alcohol and tobacco abuse. (Unknown etiology) -EGD and colonoscopy on hold because of unstable condition. -Continue IV Protonix -Check sed rate and lipase today. 3) history of myelodysplastic syndrome -Progressive pancytopenia despite treatment with Vidaza (last cycle of chemotherapy 6 weeks ago) -Pancytopenia may be secondary to infections and nutritional reasons -Unable to receive additional treatment because of poor performance status and comorbidities. -Goals of care and family discussion this afternoon regarding hospice referral. cc: Dr. Chad Cowan; Dr. Erica Braun; Dr. Bryon Sharpe; Dr. Luis A Berry
[2018-05-29 08:28] LABS: Lipase 42 U/L (73-393)
[2018-05-29] MEDS: Calcium Carb/Vitamin D 1 TABLET Tablet PO ×3 (08:37→17:12)
[2018-05-29 08:38] LABS: Erythrocyte Sedimentation Rate > 130 mm/hr (0-30)
[2018-05-29] MEDS: Calcium Carbonate 500 MG Tablet 1000 MG PO (08:38)
[2018-05-29] MEDS: Pantoprazole Sodium 40 MG Tablet PO (08:38)
[2018-05-29] MEDS: Gabapentin 800 MG Tablet PO ×3 (08:40→17:12)
[2018-05-29] MEDS: Multivitamins,Ther W-Minerals Tablet 1 TABLET PO (08:47)
[2018-05-29] MEDS: Sertraline 100 MG Tablet PO (08:48)
[2018-05-29] MEDS: LORazepam 0.5 MG Tablet PO ×2 (08:50→21:26)
--- NOTE | 2018-05-29 09:15 | CASEMGMT ---
Social Work Note MONIE spoke with Sofia at [facility] who states pre-cert has been obtained. Pt is being transferred to ICU. MONIE placed a call to Sofia at [facility] informing her of this. RN CLEMENT Castillo called report to Rima Granados. 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
--- NOTE | 2018-05-29 09:59 | PCM.CON.CC ---
Problem List (1) Abdominal pain, vomiting, and diarrhea Status: Acute (2) MDS (myelodysplastic syndrome), low grade Status: Chronic (3) Nicotine abuse Status: Chronic (4) Hyperlipidemia Status: Chronic (5) UIP (usual interstitial pneumonitis) Status: Chronic Comment: suspected severe chronic changes on CT scan (6) HTN (hypertension) Status: Chronic Qualifiers: Hypertension type: essential hypertension Qualified Code(s): I10 - Essential (primary) hypertension (7) Acute and chronic respiratory failure with hypoxia Status: Acute Reason for Consult Date of Consultation: 05/29/18 Reason for Consultation: Acute on chronic hypoxic respiratory failure History of Present Illness: The patient is a 57 year old F, with past medical history listed below, who presented to [facility] on 05/24/2018 secondary to nausea, vomiting and diarrhea. Patient states that this began in the middle of the night and patient was only able to keep down some liquids. Patient did note a small amount of bright red blood after diarrhea and had estimated 8-10 episodes since the onset. Patient had had increase in weakness and weight loss recently. Patient's last chemotherapy was approximately 1 month ago. Patient was admitted to the general medical floor with a workup for suspected colitis. Over the course of patient's hospitalization, patient became progressively hypoxic and short of breath. Patient was transferred to the intensive care unit for further evaluation. On arrival to the intensive care unit, patient feels her respiratory status has somewhat stabilized. Patient does report a cough that is intermittently productive. Chest x-ray shows progression of bilateral infiltrates. Discussed with Dr. Cowan in the intensive care unit. Dr. Cowan reported patient's hematologic at his has been deteriorating over the last couple of months despite chemotherapy. Discussed with patient about her CODE STATUS. Patient states she would not want to receive CPR intubated for any reason. Patient does want to talk with her to discuss possible palliative measures moving forward. Patient is currently on 6 L, but states that she is open to trying BiPAP therapy if it becomes necessary. Patient reports she is never been seen by a pulmonary physician, but typically gets her care at the [facility]. Patient is unclear if she is ever had pulmonary function testing, but did have CT scans in the past that were significant for UIP. Patient is unclear on etiology. Patient does continue to smoke and drink alcohol intermittently. Patient denies any illicit drug use. Patient does report continued malaise, weakness and continued weight loss. Patient denies any current chest pain or palpitations. Patient is having a dry cough, but states the nausea, vomiting and diarrhea is slightly improved compared to previous. Patient does have multiple abrasions that she attributes to fall. Patient does report anxiety, depression and easy bruising. Review of systems otherwise negative x10 systems. Past Medical History Past Medical History (Chronic Problems): Chronic Problems (Last Updated 01/08/18 @ 13:22 by Rosalie Vickers) MDS (myelodysplastic syndrome), low grade (Chronic) Alcoholism (Chronic) Nicotine abuse (Chronic) Acute IN, subendocardial (Chronic) Hyperlipidemia (Chronic) Atherosclerotic heart disease of [place] coronary artery without angina pectoris (Chronic) UIP (usual interstitial pneumonitis) (Chronic) suspected severe chronic changes on CT scan Stroke, hemorrhagic (Chronic) reportedly after a fall w head trauma HTN (hypertension) (Chronic) MDS (myelodysplastic syndrome) (Chronic) Medical History: Medical History (Last Updated 01/08/18 @ 13:22 by Rosalie Vickers) Alcoholism (Chronic) F10.20 Acute IN, subendocardial (Chronic) I21.4 Hyperlipidemia (Chronic) E78.5 Atherosclerotic heart disease of [place] coronary artery without angina pectoris (Chronic) I25.10 Stroke, hemorrhagic (Chronic) I61.9 reportedly after a fall w head trauma HTN (hypertension) (Chronic) I10 MDS (myelodysplastic syndrome) (Chronic) D46.9 Chronic interstitial lung disease J84.9 Renal failure N19 Seizure disorder G40.909 Allergies No Known Allergies Allergy (Verified 05/24/18 15:17) Home Medications: Ambulatory Orders Medication Instructions Recorded Gabapentin [Neurontin] 800 mg PO TIDCM 08/29/14 Lorazepam [Ativan] 0.5 mg PO BID PRN PRN 01/17/15 Sertraline HCl [Zoloft] 100 mg PO QHS 01/17/15 Multivitamins,Ther W-Minerals 1 tablet PO DAILY 09/20/15 [Multivitamin With Minerals] Nitroglycerin 0.4 mg SL PRN PRN 07/17/17 Omeprazole [Prilosec] 40 mg PO DAILY 07/17/17 Ergocalciferol [Vitamin D] 50,000 unit PO Q7D 05/24/18 Ondansetron [Zofran] 8 mg PO PRN PRN 05/24/18 Surgical History: Surgical History (Last Reviewed 05/24/18 @ 17:32 by FILIPPO Briggs) Hx of craniotomy Onset Date: ~2012 Z98.890 Hx of tubal ligation Z98.51 Surgical History: - - left chest port placement Psychiatric History: Anxiety, Depression Lives: Spouse/ Significant Other Smoking Status: Current some day smoker Tobacco Use: Cigarettes Alcohol: Sober Drugs: None - *Family History Maternal Family History: Family History (Last Reviewed 05/24/18 @ 17:36 by FILIPPO Briggs) Mother CAD (coronary artery disease) Brother Hypertension Atrial fibrillation History Items: Unknown Review of Systems Comment: See HPI Patient Problems: Active and Suspected Problems (Last Updated 01/08/18 @ 13:22 by Rosalie Vickers) Abdominal pain, vomiting, and diarrhea (Acute) Acute and chronic respiratory failure with hypoxia (Acute) Objective: All imaging was personally reviewed. Patient does have progressive infiltrates bilaterally in the setting of fibrosis. - Physical Exam General: Alert, Oriented x3, Cooperative, - - Mild conversational dyspnea. Cachectic. HEENT: Atraumatic, PERRLA, EOMI, Normocephalic, - - Temporal wasting. Oral: Moist Mucosa, No Gingival or Mucosal Lesions/ Ulcerations Neck: Supple, No JVD, No Nodes, Trachea Midline Lungs: No rhonchi, No wheeze, Diminished, Rales - Bilateral, - - Symmetric expansion. No dullness to percussion. Cardiovascular: Normal S1, Normal S2, No murmurs, No rub noted, No Gallop, Tachycardic Abdomen: Bowel Sounds Present, Soft, Non Tender, Non-Distended Extremities: No cyanosis, No edema, Capillary Refill Less than 3 Seconds, Clubbing Skin: - - Multiple abrasions noted. Musculoskeletal: No Tenderness to Palpation of Joints or Extremities Lymphatic: No Cervical, Supraclavicular, or Inguinal Adenopathy Neurological: Cranial nerves II-XII grossly intact, Neuro grossly intact - Global weakness Psych/Mental Status: Alert and oriented to time, place, person, mood and affect Vital Signs Temp Pulse Resp BP Pulse Ox 37.7 C H 123 H 28 H 98/66 93 05/29/18 08:00 05/29/18 08:00 05/29/18 08:00 05/29/18 08:00 05/29/18 08:00 Oxygen Flow Rate (L/min) 12 Oxygen Delivery Method Venturi Mask Weight: 38.192 kg Body Mass Index (BMI) 14.0 Intake and Output for Last 24 Hours 05/27/18 05/28/18 05/29/18 23:59 23:59 23:59 Intake Total 5277 / 5277 2083 / 2083 811 / 811 Output Total 1920 / 1920 500 / 500 Balance 3357 / 3357 1583 / 1583 811 / 811 Laboratory Tests Past 24 Hrs 05/28/18 05/28/18 05/28/18 05:30 05:30 05:30 WBC RBC Hgb Hct MCV MCH MCHC RDW RDW Differential Plt Count MPV Immature Gran % (Auto) Neut % (Auto) Lymph % (Auto) Gregory % (Auto) Eos % (Auto) Baso % (Auto) Absolute Neuts (auto) Absolute Lymphs (auto) Total Counted Immature Plt Fraction 5.4 ESR Retic Count 1.19 Immature Retic Fraction 9.20 Retic Hgb Equivalent 30.0 Specimen Type Sample Site pH Bicarbonate Actual POC Total CO2 Base Excess O2 Saturation O2 % ABG pCO2 ABG pO2 Mac Test O2 Delivery Device Blood Gas Notified Whom Blood Gas Notified Time Sodium Potassium Chloride Carbon Dioxide Anion Gap BUN Creatinine Estim Creat Clear Calc Est GFR (MDRD) Af Amer Est GFR (MDRD) Non-Af BUN/Creatinine Ratio Glucose Calcium Iron 17 L TIBC 107 L Iron Saturation 15.9 Total Bilirubin AST ALT Alkaline Phosphatase Total Protein Albumin Globulin Albumin/Globulin Ratio Lipase Vitamin B12 513 Folate 6.10 05/29/18 05/29/18 05/29/18 00:18 05:20 05:20 WBC 8.4 RBC 2.76 L Hgb 8.9 L Hct 27.8 L MCV 100.7 H MCH 32.2 H MCHC 32.0 RDW 17.9 H RDW Differential 64.8 H Plt Count 84 L MPV 11.9 Immature Gran % (Auto) 0.000 Neut % (Auto) 88.8 H Lymph % (Auto) 6.1 L Gregory % (Auto) 4.3 Eos % (Auto) 0.6 Baso % (Auto) 0.2 Absolute Neuts (auto) 7.4 Absolute Lymphs (auto) 0.51 L Total Counted Not Reportable Immature Plt Fraction ESR Retic Count Immature Retic Fraction Retic Hgb Equivalent Specimen Type ART Sample Site L Radial pH 7.40 Bicarbonate Actual 20.7 L POC Total CO2 22 Base Excess -4 L O2 Saturation 96 O2 % 50 ABG pCO2 33.5 L ABG pO2 80 Mac Test POS O2 Delivery Device Vent Mask Blood Gas Notified Whom [facility] Blood Gas Notified Time 10 Sodium 138 Potassium 5.3 H Chloride 108 H Carbon Dioxide 22.0 Anion Gap 8 BUN 8 Creatinine 0.58 Estim Creat Clear Calc 64.52 Est GFR (MDRD) Af Amer 138 Est GFR (MDRD) Non-Af 114 BUN/Creatinine Ratio 13.8 Glucose 81 Calcium 7.6 L Iron TIBC Iron Saturation Total Bilirubin 0.40 AST 13 L ALT 16 Alkaline Phosphatase 131 H Total Protein 6.5 Albumin 1.3 L Globulin 5.2 H Albumin/Globulin Ratio 0.2 L Lipase Vitamin B12 Folate 05/29/18 05/29/18 05:20 05:20 WBC RBC Hgb Hct MCV MCH MCHC RDW RDW Differential Plt Count MPV Immature Gran % (Auto) Neut % (Auto) Lymph % (Auto) Gregory % (Auto) Eos % (Auto) Baso % (Auto) Absolute Neuts (auto) Absolute Lymphs (auto) Total Counted Immature Plt Fraction ESR > 130 H Retic Count Immature Retic Fraction Retic Hgb Equivalent Specimen Type Sample Site pH Bicarbonate Actual POC Total CO2 Base Excess O2 Saturation O2 % ABG pCO2 ABG pO2 Mac Test O2 Delivery Device Blood Gas Notified Whom Blood Gas Notified Time Sodium Potassium Chloride Carbon Dioxide Anion Gap BUN Creatinine Estim Creat Clear Calc Est GFR (MDRD) Af Amer Est GFR (MDRD) Non-Af BUN/Creatinine Ratio Glucose Calcium Iron TIBC Iron Saturation Total Bilirubin AST ALT Alkaline Phosphatase Total Protein Albumin Globulin Albumin/Globulin Ratio Lipase 42 L Vitamin B12 Folate Clinical Impression(s) from Imaging Studies Chest X-Ray 05/24/18 15:44 IMPRESSION: Lower lung infiltrates or edema on the left more than the right Electronically Signed: William Ann MD at 16:13 EDT , Service support , Abdomen/Pelvis CT 05/25/18 07:59 IMPRESSION: Wall thickening of the distal stomach with gastritis versus ulcer disease. No obstruction. L3 compression fracture. Fibrotic densities with left lower lung airspace consolidation. Electronically Signed: William Ann MD at 11:46 EDT , Service support , Chest X-Ray 05/27/18 06:57 IMPRESSION: Interval development of bilateral lower lobe, right middle lobe and lingular segment interstitial pneumonias. In correlation with the CT of the abdomen and pelvis development of pulmonary edema is not likely. COPD. Electronically Signed: Shaun Patterson MD at 7:50 EDT , Service support , Chest X-Ray 05/29/18 07:35 IMPRESSION: Decreased inspiratory effort as compared to prior study. Stable diffuse scarring in both lungs with the areas of confluence and honeycombing. Electronically Signed: Walt Alcantar MD at 9:17 EDT Tel [phone], Service support , Assessment/Plan Active and Suspected Problems (Last Updated 01/08/18 @ 13:22 by Rosalie Vickers) Abdominal pain, vomiting, and diarrhea (Acute) Acute and chronic respiratory failure with hypoxia (Acute) RECOMMENDATIONS: 1. Continue antibiotics, steroids and bronchodilators 2. Wean oxygen as tolerated 3. BiPAP rescue if indicated 4. Change CODE STATUS to DNR Comfort Care arrest without intubation 5. Family meeting to discuss goals of therapy IMPRESSIONS: 1. Acute on chronic hypoxic respiratory failure secondary to pneumonia in the setting of pulmonary fibrosis Echocardiogram is currently pending. Patient currently on high flow nasal cannula oxygen, but required Ventimask previously. Patient with increasing infiltrates on chest x-ray. Patient currently on steroids, bronchodilators and antibiotics. Patient is aware that condition may deteriorate before improving. 2. Sepsis secondary to pneumonia Patient currently tachycardic and requiring increased FiO2. Patient would be at risk for multidrug-resistant organisms, so will add MRSA swab patient continues to request aggressive measures. Cannot exclude the need for pressor therapy moving forward. Continue to monitor in the intensive care unit. 3. Colitis/gastric thickening/severe protein calorie malnutrition Patient with significant cachexia on exam. Very little metabolic reserves at this time. Dietitian will be consulted. Patient appears to be able to be off of BiPAP, so p.o. intake is acceptable. 4. Myelodysplastic syndrome/anemia Patient currently on chemotherapy, but appears to be progressing. Hematology is not optimistic about patient's long-term prognosis. Family meeting this afternoon to discuss goals of therapy. No indication for transfusion at this time. 5. L3 compression fracture/history of alcohol abuse/nicotine dependence/history of CVA/previous hyperkalemia Complicates care, management, recovery and prognosis. Nicotine patch has been offered. Code Visit Inpatient E&M: [id number] Init Hosp L3
--- NOTE | 2018-05-29 10:26 | CON.PCM_ITS ---
Problem List (1) Abdominal pain, vomiting, and diarrhea Status: Acute (2) MDS (myelodysplastic syndrome), low grade Status: Chronic (3) Nicotine abuse Status: Chronic (4) Hyperlipidemia Status: Chronic (5) UIP (usual interstitial pneumonitis) Status: Chronic Comment: suspected severe chronic changes on CT scan (6) HTN (hypertension) Status: Chronic Qualifiers: Hypertension type: essential hypertension Qualified Code(s): I10 - [place] l (primary) hypertension (7) Acute and chronic respiratory failure with hypoxia Status: Acute Reason for Consult Date of Consultation: 05/29/18 Reason for Consultation: Acute on chronic hypoxic respiratory failure History of Present Illness: The patient is a 57 year old F, with past medical history listed below, who presented to [facility] on 05/24/2018 secondary to nausea, vomiting and diarrhea. Patient states that this began in the middle of the night and patient was only able to keep down some liquids. Patient did note a small amount of bright red blood after diarrhea and had estimated 8-10 episodes since the onset. Patient had had increase in weakness and weight loss recently. Patient's last chemotherapy was approximately 1 month ago. Patient was admitted to the general medical floor with a workup for suspected colitis. Over the course of patient's hospitalization, patient became progressively hypoxic and short of breath. Patient was transferred to the intensive care unit for further evaluation. On arrival to the intensive care unit, patient feels her respiratory status has somewhat stabilized. Patient does report a cough that is intermittently productive. Chest x-ray shows progression of bilateral infiltrates. Discussed with Dr. Cowan in the intensive care unit. Dr. Cowan reported patient's hematologic at his has been deteriorating over the last couple of months despite chemotherapy. Discussed with patient about her CODE STATUS. Patient states she would not want to receive CPR intubated for any reason. Patient does want to talk with her to discuss possible palliative measures moving forward. Patient is currently on 6 L, but states that she is open to trying BiPAP therapy if it becomes necessary. Patient reports she is never been seen by a pulmonary physician, but typically gets her care at the [facility]. Patient is unclear if she is ever had pulmonary function testing, but did have CT scans in the past that were significant for UIP. Patient is unclear on etiology. Patient does continue to smoke and drink alcohol intermittently. Patient denies any illicit drug use. Patient does report continued malaise, weakness and continued weight loss. Patient denies any current chest pain or palpitations. Patient is having a dry cough, but states the nausea, vomiting and diarrhea is slightly improved compared to previous. Patient does have multiple abrasions that she attributes to fall. Patient does report anxiety, depression and easy bruising. Review of systems otherwise negative x10 systems. Past Medical History Past Medical History (Chronic Problems): Chronic Problems (Last Updated 01/08/18 @ 13:22 by Rosalie Vickers) MDS (myelodysplastic syndrome), low grade (Chronic) Alcoholism (Chronic) Nicotine abuse (Chronic) Acute IA, subendocardial (Chronic) Hyperlipidemia (Chronic) Atherosclerotic heart disease of [place] coronary artery without angina pectoris (Chronic) UIP (usual interstitial pneumonitis) (Chronic) suspected severe chronic changes on CT scan Stroke, hemorrhagic (Chronic) reportedly after a fall w head trauma HTN (hypertension) (Chronic) MDS (myelodysplastic syndrome) (Chronic) Medical History: Medical History (Last Updated 01/08/18 @ 13:22 by Rosalie Vickers) Alcoholism (Chronic) F10.20 Acute IA, subendocardial (Chronic) I21.4 Hyperlipidemia (Chronic) E78.5 Atherosclerotic heart disease of [place] coronary artery without angina pectoris (Chronic) I25.10 Stroke, hemorrhagic (Chronic) I61.9 reportedly after a fall w head trauma HTN (hypertension) (Chronic) I10 MDS (myelodysplastic syndrome) (Chronic) D46.9 Chronic interstitial lung disease J84.9 Renal failure N19 Seizure disorder G40.909 Allergies No Known Allergies Allergy (Verified 05/24/18 15:17) Home Medications: Ambulatory Orders Medication Instructions Recorded Gabapentin [Neurontin] 800 mg PO TIDCM 08/29/14 Lorazepam [Ativan] 0.5 mg PO BID PRN PRN 01/17/15 Sertraline HCl [Zoloft] 100 mg PO QHS 01/17/15 Multivitamins,Ther W-Minerals 1 tablet PO DAILY 09/20/15 [Multivitamin With Minerals] Nitroglycerin 0.4 mg SL PRN PRN 07/17/17 Omeprazole [Prilosec] 40 mg PO DAILY 07/17/17 Ergocalciferol [Vitamin D] 50,000 unit PO Q7D 05/24/18 Ondansetron [Zofran] 8 mg PO PRN PRN 05/24/18 Surgical History: Surgical History (Last Reviewed 05/24/18 @ 17:32 by FILIPPO Briggs) Hx of craniotomy Onset Date: ~2012 Z98.890 Hx of tubal ligation Z98.51 Surgical History: - - left chest port placement Psychiatric History: Anxiety, Depression Lives: Spouse/ Significant Other Smoking Status: Current some day smoker Tobacco Use: Cigarettes Alcohol: Sober Drugs: None - *Family History Maternal Family History: Family History (Last Reviewed 05/24/18 @ 17:36 by FILIPPO Briggs) Mother CAD (coronary artery disease) Brother Hypertension Atrial fibrillation History Items: Unknown Review of Systems Comment: See HPI Patient Problems: Active and Suspected Problems (Last Updated 01/08/18 @ 13:22 by Rosalie Vickers) Abdominal pain, vomiting, and diarrhea (Acute) Acute and chronic respiratory failure with hypoxia (Acute) Objective: All imaging was personally reviewed. Patient does have progressive infiltrates bilaterally in the setting of fibrosis. - Physical Exam General: Alert, Oriented x3, Cooperative, - - Mild conversational dyspnea. Cachectic. HEENT: Atraumatic, PERRLA, EOMI, Normocephalic, - - Temporal wasting. Oral: Moist Mucosa, No Gingival or Mucosal Lesions/ Ulcerations Neck: Supple, No JVD, No Nodes, Trachea Midline Lungs: No rhonchi, No wheeze, Diminished, Rales - Bilateral, - - Symmetric expansion. No dullness to percussion. Cardiovascular: Normal S1, Normal S2, No murmurs, No rub noted, No Gallop, Tachycardic Abdomen: Bowel Sounds Present, Soft, Non Tender, Non-Distended Extremities: No cyanosis, No edema, Capillary Refill Less than 3 Seconds, Clubbing Skin: - - Multiple abrasions noted. Musculoskeletal: No Tenderness to Palpation of Joints or Extremities Lymphatic: No Cervical, Supraclavicular, or Inguinal Adenopathy Neurological: Cranial nerves II-XII grossly intact, Neuro grossly intact - Global weakness Psych/Mental Status: Alert and oriented to time, place, person, mood and affect Vital Signs Temp Pulse Resp BP Pulse Ox 37.7 C H 123 H 28 H 98/66 93 05/29/18 08:00 05/29/18 08:00 05/29/18 08:00 05/29/18 08:00 05/29/18 08:00 Oxygen Flow Rate (L/min) 12 Oxygen Delivery Method Venturi Mask Weight: 38.192 kg Body Mass Index (BMI) 14.0 Intake and Output for Last 24 Hours 05/27/18 05/28/18 05/29/18 23:59 23:59 23:59 Intake Total 5277 / 5277 2083 / 2083 811 / 811 Output Total 1920 / 1920 500 / 500 Balance 3357 / 3357 1583 / 1583 811 / 811 Laboratory Tests Past 24 Hrs 05/28/18 05/28/18 05/28/18 05:30 05:30 05:30 WBC RBC Hgb Hct MCV MCH MCHC RDW RDW Differential Plt Count MPV Immature Gran % (Auto) Neut % (Auto) Lymph % (Auto) [place] % (Auto) Eos % (Auto) Baso % (Auto) Absolute Neuts (auto) Absolute Lymphs (auto) Total Counted Immature Plt Fraction 5.4 ESR Retic Count 1.19 Immature Retic Fraction 9.20 Retic Hgb Equivalent 30.0 Specimen Type Sample Site pH Bicarbonate Actual POC Total CO2 Base Excess O2 Saturation O2 % ABG pCO2 ABG pO2 Mac Test O2 Delivery Device Blood Gas Notified Whom Blood Gas Notified Time Sodium Potassium Chloride Carbon Dioxide Anion Gap BUN Creatinine Estim Creat Clear Calc Est GFR (MDRD) Af Amer Est GFR (MDRD) Non-Af BUN/Creatinine Ratio Glucose Calcium Iron 17 L TIBC 107 L Iron Saturation 15.9 Total Bilirubin AST ALT Alkaline Phosphatase Total Protein Albumin Globulin Albumin/Globulin Ratio Lipase Vitamin B12 513 Folate 6.10 05/29/18 05/29/18 05/29/18 00:18 05:20 05:20 WBC 8.4 RBC 2.76 L Hgb 8.9 L Hct 27.8 L MCV 100.7 H MCH 32.2 H MCHC 32.0 RDW 17.9 H RDW Differential 64.8 H Plt Count 84 L MPV 11.9 Immature Gran % (Auto) 0.000 Neut % (Auto) 88.8 H Lymph % (Auto) 6.1 L [place] % (Auto) 4.3 Eos % (Auto) 0.6 Baso % (Auto) 0.2 Absolute Neuts (auto) 7.4 Absolute Lymphs (auto) 0.51 L Total Counted Not Reportable Immature Plt Fraction ESR Retic Count Immature Retic Fraction Retic Hgb Equivalent Specimen Type ART Sample Site L Radial pH 7.40 Bicarbonate Actual 20.7 L POC Total CO2 22 Base Excess -4 L O2 Saturation 96 O2 % 50 ABG pCO2 33.5 L ABG pO2 80 Mac Test POS O2 Delivery Device Vent Mask Blood Gas Notified Whom [facility] Blood Gas Notified Time 10 Sodium 138 Potassium 5.3 H Chloride 108 H Carbon Dioxide 22.0 Anion Gap 8 BUN 8 Creatinine 0.58 Estim Creat Clear Calc 64.52 Est GFR (MDRD) Af Amer 138 Est GFR (MDRD) Non-Af 114 BUN/Creatinine Ratio 13.8 Glucose 81 Calcium 7.6 L Iron TIBC Iron Saturation Total Bilirubin 0.40 AST 13 L ALT 16 Alkaline Phosphatase 131 H Total Protein 6.5 Albumin 1.3 L Globulin 5.2 H Albumin/Globulin Ratio 0.2 L Lipase Vitamin B12 Folate 05/29/18 05/29/18 05:20 05:20 WBC RBC Hgb Hct MCV MCH MCHC RDW RDW Differential Plt Count MPV Immature Gran % (Auto) Neut % (Auto) Lymph % (Auto) [place] % (Auto) Eos % (Auto) Baso % (Auto) Absolute Neuts (auto) Absolute Lymphs (auto) Total Counted Immature Plt Fraction ESR > 130 H Retic Count Immature Retic Fraction Retic Hgb Equivalent Specimen Type Sample Site pH Bicarbonate Actual POC Total CO2 Base Excess O2 Saturation O2 % ABG pCO2 ABG pO2 Mac Test O2 Delivery Device Blood Gas Notified Whom Blood Gas Notified Time Sodium Potassium Chloride Carbon Dioxide Anion Gap BUN Creatinine Estim Creat Clear Calc Est GFR (MDRD) Af Amer Est GFR (MDRD) Non-Af BUN/Creatinine Ratio Glucose Calcium Iron TIBC Iron Saturation Total Bilirubin AST ALT Alkaline Phosphatase Total Protein Albumin Globulin Albumin/Globulin Ratio Lipase 42 L Vitamin B12 Folate Clinical Impression(s) from Imaging Studies Chest X-Ray 05/24/18 15:44 IMPRESSION: Lower lung infiltrates or edema on the left more than the right Electronically Signed: William Ann MD at 16:13 EDT , Service support , Abdomen/Pelvis CT 05/25/18 07:59 IMPRESSION: Wall thickening of the distal stomach with gastritis versus ulcer disease. No obstruction. L3 compression fracture. Fibrotic densities with left lower lung airspace consolidation. Electronically Signed: William Ann MD at 11:46 EDT , Service support , Chest X-Ray 05/27/18 06:57 IMPRESSION: Interval development of bilateral lower lobe, right middle lobe and lingular segment interstitial pneumonias. In correlation with the CT of the abdomen and pelvis development of pulmonary edema is not likely. COPD. Electronically Signed: Shaun Patterson MD at 7:50 EDT , Service support , Chest X-Ray 05/29/18 07:35 IMPRESSION: Decreased inspiratory effort as compared to prior study. Stable diffuse scarring in both lungs with the areas of confluence and honeycombing. Electronically Signed: Walt Alcantar MD at 9:17 EDT Tel [phone], Service support , Assessment/Plan Active and Suspected Problems (Last Updated 01/08/18 @ 13:22 by Rosalie Vickers) Abdominal pain, vomiting, and diarrhea (Acute) Acute and chronic respiratory failure with hypoxia (Acute) RECOMMENDATIONS: 1. Continue antibiotics, steroids and bronchodilators 2. Wean oxygen as tolerated 3. BiPAP rescue if indicated 4. Change CODE STATUS to DNR Comfort Care arrest without intubation 5. Family meeting to discuss goals of therapy IMPRESSIONS: 1. Acute on chronic hypoxic respiratory failure secondary to pneumonia in the setting of pulmonary fibrosis Echocardiogram is currently pending. Patient currently on high flow nasal cannula oxygen, but required Ventimask previously. Patient with increasing infiltrates on chest x-ray. Patient currently on steroids, bronchodilators and antibiotics. Patient is aware that condition may deteriorate before improving. 2. Sepsis secondary to pneumonia Patient currently tachycardic and requiring increased FiO2. Patient would be at risk for multidrug-resistant organisms, so will add MRSA swab patient continues to request aggressive measures. Cannot exclude the need for pressor therapy moving forward. Continue to monitor in the intensive care unit. 3. Colitis/gastric thickening/severe protein calorie malnutrition Patient with significant cachexia on exam. Very little metabolic reserves at this time. Dietitian will be consulted. Patient appears to be able to be off of BiPAP, so p.o. intake is acceptable. 4. Myelodysplastic syndrome/anemia Patient currently on chemotherapy, but appears to be progressing. Hematology is not optimistic about patient's long-term prognosis. Family meeting this afternoon to discuss goals of therapy. No indication for transfusion at this time. 5. L3 compression fracture/history of alcohol abuse/nicotine dependence/history of CVA/previous hyperkalemia Complicates care, management, recovery and prognosis. Nicotine patch has been offered. Code Visit Inpatient E&M: 68515 Init Hosp L3
[2018-05-29] MEDS: Na Biphos/Potassium Phosphate PACKET 1 PACKET PO ×4 (10:40→21:25)
[2018-05-29] MEDS: Menthol/Lanolin/Calamine/Znox 113 GM Tube 1 APPLIC TOPICAL ×2 (10:46→21:26)
[2018-05-29] MEDS: 0.9% Normal Saline 1,000 ML 15 ML IV (10:47)
--- NOTE | 2018-05-29 14:25 | NURSING ---
bedside meeting with Amina, Mike, her Father, Mother-in law, [place] Ray, Dr Rogers & med student, social worker masters Elissa, and myself discussed further treatment plans , & options continue iv antibiotics, Hospice all were allowed to vent feelings and ask questions, will continue treatment now reevaluate in 24-48 hours then make final decision to consult Hospice
--- NOTE | 2018-05-29 14:58 | CHAPLAIN ---
Type of Pastoral Visit ___ Initial Visit _x__ Follow-up Visit ___ On-call Visit ___ General Patient Visit ___ Spiritual Assessment ___ Family Conference ___ Bereavement ___ Rapid Response ___ Code Blue ___ Other (describe below) Pastoral Care Referral From _x__ Patient ___ Family ___ Nurse ___ Physician ___ Steak Sauce Maker ___ Towboat Pilot ___ Other (describe below) Sacrament/Intervention _x__ Active listening ___ Anointing ___ Yarsanism ___ Bereavement ___ Communion _x__ Alexandra exploration ___ ___ Life review _x__ Prayer ___ Reconciliation ___ Sacrament of Sick _x__ Supportive presence ___ Wedding ___ Other (describe below) Pastoral Comments patient is processing information about doctor's questions about comfort care; pt is struggling between hearing nothing more we can do and her optimistic hope of I've got maybe 2 or 3 more years; asked questions to help patient clarify her understanding; pt reveals that her concern is not spiritual - I know where I am going and who I will see but it is I don't want to leave my dad and my sons; pt decides that she will need to talk openly to her family members; pt has hope to be buried beside her mother (but I need my dad's permission); prayer is welcomed
--- NOTE | 2018-05-29 15:05 | CHAPLAIN ---
Type of Pastoral Visit ___ Initial Visit ___ Follow-up Visit ___ On-call Visit ___ General Patient Visit ___ Spiritual Assessment _x__ Family Conference ___ Bereavement ___ Rapid Response ___ Code Blue ___ Other (describe below) Pastoral Care Referral From ___ Patient ___ Family _x__ Nurse _x__ Physician ___ Cancer Registry Manager ___ Drop Count Associate ___ Other (describe below) Sacrament/Intervention ___ Active listening ___ Anointing ___ Christianity ___ Bereavement ___ Communion ___ Alexandra exploration ___ ___ Life review ___ Prayer ___ Reconciliation ___ Sacrament of Sick _x__ Supportive presence ___ Wedding ___ Other (describe below) Pastoral Comments participated in family meeting as team gathered to talk with patient and family about prognosis of treatment and comfort care; opportunity to affirm patient in her desire to speak openly with her family and to be available to family members for spiritual support; offer of continual support as needed
[2018-05-29] MEDS: fentaNYL 100 MCG/2 ML Ampul 25 MCG IV (21:26)
[2018-05-29] MEDS: QUEtiapine 25 MG Tablet PO (22:23)
[2018-05-30] VITALS (31 sets, daily range): BP systolic 85–132; BP diastolic 60–87; PULSE 80–127; RESP 12–32; TEMP 36.1–38.1; O2SAT 78–100
[2018-05-30 04:34] LABS: Absolute Lymphocyte Count 0.38 X10^3/ul (0.83-4.51); Absolute Neutrophil Count 6.3 X10^3/uL (2.0-7.7); Hematocrit 24.9 % (37-47); Lymphocyte # 0.38 X10^3/ul (4.0); Lymphocyte % 5.5 % (19-41); Mean Corp Hgb Conc 32.1 g/gl (32-36); Mean Corpuscular Hgb 32.4 pg (27.0-32.0); Mean Corpuscular Volume 100.8 fL (81-99); Monocyte# 0.21 X10^3/uL; Neutrophil # 6.34 X10^3/uL (2.7-7.7); Neutrophil % 91.4 % (47-70); Platelet Count 77 K/mm3 (150-450); RBC Distribution Width CV 17.4 % (11.6-14.6); RBC Distribution Width SD 64.9 fl (35.1-43.9); Red Blood Count 2.47 M/mm3 (4.2-5.4); White Blood Count 6.9 K/mm3 (4.4-11.0)
[2018-05-30 04:35] LABS: Differential Indicated SCAN CRITERIA MET; POSITIVE COUNT NO; POSITIVE DIFFERENTIAL YES; POSITIVE MORPHOLOGY NO
[2018-05-30 04:50] LABS: ALB/GLOB Ratio 0.3 RATIO (0.9-2.4); AST(SGOT) 15 U/L (15-37); Alanine Aminotransfer ALT/SGPT 13 U/L (13-56); Albumin, Serum 1.4 g/dL (3.2-5.0); Alkaline Phosphatase 140 U/L (45-117); Anion Gap 6 (5-15); BUN 17 mg/dL (7-18); BUN/Creat Ratio 22.8 RATIO (10-20); Calcium,Total 7.7 mg/dL (8.5-10.1); Chloride 108 mmol/L (98-107); Creatinine, Serum 0.75 mg/dL (0.55-1.02); EST Glomerular Filtration Rate 85 mL/min (>60); Est Glom Filt Rate - Afr Amer 103 mL/min (>60); Globulin 5.3 g/dL (2.2-4.2); Glucose 135 mg/dL (74-106); Potassium 4.9 mmol/L (3.5-5.1); Protein, Total 6.7 g/dL (6.4-8.2); Sodium Level 139 mmol/L (136-145)
[2018-05-30 04:57] LABS: Differential Comment SCANNED
[2018-05-30] MEDS: Menthol/Lanolin/Calamine/Znox 113 GM Tube 1 APPLIC TOPICAL (05:27)
--- NOTE | 2018-05-30 06:14 | PCM.PN.INT ---
Subjective: Patient did okay yesterday. Patient did start to develop respiratory muscle fatigue overnight and was placed on BiPAP therapy. Multiple settings were attempted, the patient settled on 8/4 centimeters of water to yield a tidal volume of approximately 400 cc. Patient reports subjective improvement in dyspnea following initiation of BiPAP therapy. Patient still has a very weak cough. Patient with only one bowel movement overnight Objective: Echocardiogram shows an EF of 60% with impaired relaxation. Pulmonary artery pressure is elevated at 40 mmHg, but no significant valvular abnormalities appreciated. No pericardial effusion. General: Alert, Oriented x3, Cooperative, No apparent distress, - - Cachectic. Able to vocalize. Appears older than stated age. HEENT: Atraumatic, PERRLA, EOMI, Normocephalic, - - Temporal wasting Oral: Moist Mucosa, No Gingival or Mucosal Lesions/ Ulcerations Neck: Supple, No JVD, No Nodes, Trachea Midline Lungs: No rhonchi, No wheeze, Diminished, Rales, - - Symmetric expansion. No dullness to percussion. Cardiovascular: Normal S1, Normal S2, No murmurs, No rub noted, No Gallop, Tachycardic Abdomen: Bowel Sounds Present, Soft, Non Tender, Non-Distended Extremities: No cyanosis, No edema, Capillary Refill Less than 3 Seconds, Clubbing Skin: No rashes, No breakdown Musculoskeletal: No Tenderness to Palpation of Joints or Extremities Lymphatic: No Cervical, Supraclavicular, or Inguinal Adenopathy Neurological: Cranial nerves II-XII grossly intact, Neuro grossly intact, Motor Exam 5/5 strength throughout Psych/Mental Status: Alert and oriented to time, place, person, mood and affect Vital Signs Temp Pulse Resp BP Pulse Ox 36.6 C 102 H 15 111/87 H 92 05/30/18 06:00 05/30/18 06:00 05/30/18 06:00 05/30/18 06:00 05/30/18 06:00 Oxygen Flow Rate (L/min) 6 Oxygen Delivery Method Bi-pap Weight: 37 kg Body Mass Index (BMI) 14.0 Intake and Output for Last 24 Hours 05/28/18 05/29/18 05/30/18 23:59 23:59 23:59 Intake Total 2083 / 2083 2154 / 2154 192 / 192 Output Total 500 / 500 1200 / 1200 200 / 200 Balance 1583 / 1583 954 / 954 -8 / -8 Labs (Last 48 Hours) 05/28/18 05/28/18 05/28/18 05:30 05:30 05:30 WBC 5.6 RBC 2.44 L Hgb 7.9 L Hct 24.7 L MCV 101.2 H MCH 32.4 H MCHC 32.0 RDW 17.1 H RDW Differential 60.5 H Plt Count 65 L MPV 11.1 Immature Gran % (Auto) Neut % (Auto) Lymph % (Auto) [place] % (Auto) Eos % (Auto) Baso % (Auto) Absolute Neuts (auto) Absolute Lymphs (auto) Total Counted Differential Comment Immature Plt Fraction ESR Retic Count Immature Retic Fraction Retic Hgb Equivalent Specimen Type Sample Site pH Bicarbonate Actual POC Total CO2 Base Excess O2 Saturation O2 % ABG pCO2 ABG pO2 Mac Test O2 Delivery Device Blood Gas Notified Whom Blood Gas Notified Time Sodium Potassium Chloride Carbon Dioxide Anion Gap BUN Creatinine Estim Creat Clear Calc Est GFR (MDRD) Af Amer Est GFR (MDRD) Non-Af BUN/Creatinine Ratio Glucose Calcium Magnesium 1.8 Iron TIBC Iron Saturation Total Bilirubin 0.30 Direct Bilirubin 0.17 AST 12 L ALT 14 Alkaline Phosphatase 121 H Total Protein 5.6 L Albumin 1.2 L Globulin 4.4 H Albumin/Globulin Ratio Lipase Vitamin B12 Folate 05/28/18 05/28/18 05/28/18 05:30 05:30 05:30 WBC RBC Hgb Hct MCV MCH MCHC RDW RDW Differential Plt Count MPV Immature Gran % (Auto) Neut % (Auto) Lymph % (Auto) [place] % (Auto) Eos % (Auto) Baso % (Auto) Absolute Neuts (auto) Absolute Lymphs (auto) Total Counted Differential Comment Immature Plt Fraction 5.4 ESR Retic Count 1.19 Immature Retic Fraction 9.20 Retic Hgb Equivalent 30.0 Specimen Type Sample Site pH Bicarbonate Actual POC Total CO2 Base Excess O2 Saturation O2 % ABG pCO2 ABG pO2 Mac Test O2 Delivery Device Blood Gas Notified Whom Blood Gas Notified Time Sodium Potassium Chloride Carbon Dioxide Anion Gap BUN Creatinine Estim Creat Clear Calc Est GFR (MDRD) Af Amer Est GFR (MDRD) Non-Af BUN/Creatinine Ratio Glucose Calcium Magnesium Iron 17 L TIBC 107 L Iron Saturation 15.9 Total Bilirubin Direct Bilirubin AST ALT Alkaline Phosphatase Total Protein Albumin Globulin Albumin/Globulin Ratio Lipase Vitamin B12 513 Folate 6.10 05/29/18 05/29/18 05/29/18 00:18 05:20 05:20 WBC 8.4 RBC 2.76 L Hgb 8.9 L Hct 27.8 L MCV 100.7 H MCH 32.2 H MCHC 32.0 RDW 17.9 H RDW Differential 64.8 H Plt Count 84 L MPV 11.9 Immature Gran % (Auto) 0.000 Neut % (Auto) 88.8 H Lymph % (Auto) 6.1 L [place] % (Auto) 4.3 Eos % (Auto) 0.6 Baso % (Auto) 0.2 Absolute Neuts (auto) 7.4 Absolute Lymphs (auto) 0.51 L Total Counted Not Reportable Differential Comment Immature Plt Fraction ESR Retic Count Immature Retic Fraction Retic Hgb Equivalent Specimen Type ART Sample Site L Radial pH 7.40 Bicarbonate Actual 20.7 L POC Total CO2 22 Base Excess -4 L O2 Saturation 96 O2 % 50 ABG pCO2 33.5 L ABG pO2 80 Mac Test POS O2 Delivery Device Vent Mask Blood Gas Notified Whom [facility] Blood Gas Notified Time 10 Sodium 138 Potassium 5.3 H Chloride 108 H Carbon Dioxide 22.0 Anion Gap 8 BUN 8 Creatinine 0.58 Estim Creat Clear Calc 64.52 Est GFR (MDRD) Af Amer 138 Est GFR (MDRD) Non-Af 114 BUN/Creatinine Ratio 13.8 Glucose 81 Calcium 7.6 L Magnesium Iron TIBC Iron Saturation Total Bilirubin 0.40 Direct Bilirubin AST 13 L ALT 16 Alkaline Phosphatase 131 H Total Protein 6.5 Albumin 1.3 L Globulin 5.2 H Albumin/Globulin Ratio 0.2 L Lipase Vitamin B12 Folate 05/29/18 05/29/18 05/30/18 05:20 05:20 04:25 WBC RBC Hgb Hct MCV MCH MCHC RDW RDW Differential Plt Count MPV Immature Gran % (Auto) Neut % (Auto) Lymph % (Auto) [place] % (Auto) Eos % (Auto) Baso % (Auto) Absolute Neuts (auto) Absolute Lymphs (auto) Total Counted Differential Comment Immature Plt Fraction ESR > 130 H Retic Count Immature Retic Fraction Retic Hgb Equivalent Specimen Type Sample Site pH Bicarbonate Actual POC Total CO2 Base Excess O2 Saturation O2 % ABG pCO2 ABG pO2 Mac Test O2 Delivery Device Blood Gas Notified Whom Blood Gas Notified Time Sodium 139 Potassium 4.9 Chloride 108 H Carbon Dioxide 25.0 Anion Gap 6 BUN 17 Creatinine 0.75 Estim Creat Clear Calc 49.90 Est GFR (MDRD) Af Amer 103 Est GFR (MDRD) Non-Af 85 BUN/Creatinine Ratio 22.8 H Glucose 135 H Calcium 7.7 L Magnesium Iron TIBC Iron Saturation Total Bilirubin 0.30 Direct Bilirubin AST 15 ALT 13 Alkaline Phosphatase 140 H Total Protein 6.7 Albumin 1.4 L Globulin 5.3 H Albumin/Globulin Ratio 0.3 L Lipase 42 L Vitamin B12 Folate 05/30/18 04:25 WBC 6.9 RBC 2.47 L Hgb 8.0 L Hct 24.9 L MCV 100.8 H MCH 32.4 H MCHC 32.1 RDW 17.4 H RDW Differential 64.9 H Plt Count 77 L MPV 11.0 Immature Gran % (Auto) 0.100 Neut % (Auto) 91.4 H Lymph % (Auto) 5.5 L [place] % (Auto) 3.0 Eos % (Auto) 0.0 Baso % (Auto) 0.0 Absolute Neuts (auto) 6.3 Absolute Lymphs (auto) 0.38 L Total Counted Not Reportable Differential Comment SCANNED Immature Plt Fraction ESR Retic Count Immature Retic Fraction Retic Hgb Equivalent Specimen Type Sample Site pH Bicarbonate Actual POC Total CO2 Base Excess O2 Saturation O2 % ABG pCO2 ABG pO2 Mac Test O2 Delivery Device Blood Gas Notified Whom Blood Gas Notified Time Sodium Potassium Chloride Carbon Dioxide Anion Gap BUN Creatinine Estim Creat Clear Calc Est GFR (MDRD) Af Amer Est GFR (MDRD) Non-Af BUN/Creatinine Ratio Glucose Calcium Magnesium Iron TIBC Iron Saturation Total Bilirubin Direct Bilirubin AST ALT Alkaline Phosphatase Total Protein Albumin Globulin Albumin/Globulin Ratio Lipase Vitamin B12 Folate Clinical Impression(s) from Imaging Studies Chest X-Ray 05/29/18 07:35 IMPRESSION: Decreased inspiratory effort as compared to prior study. Stable diffuse scarring in both lungs with the areas of confluence and honeycombing. Electronically Signed: Walt Alcantar MD at 9:17 EDT Tel [phone], Service support , Medical Necessity - Tobacco Use Smoking Status: Current some day smoker Tobacco Use: Cigarettes Assessment/Plan All Active Problems (Last Updated 01/08/18 @ 13:22 by Rosalie Vickers) Abdominal pain, vomiting, and diarrhea (Acute) Acute and chronic respiratory failure with hypoxia (Acute) SIRS (systemic inflammatory response syndrome) (Resolved) RECOMMENDATIONS: 1. Continue antibiotics, steroids and bronchodilators 2. Wean oxygen as tolerated 3. Continue BiPAP rescue as necessary 4. Change CODE STATUS to DNR Comfort Care arrest without intubation 5. Will obtain an MRSA swab, initiate vancomycin if positive IMPRESSIONS: 1. Acute on chronic hypoxic respiratory failure secondary to pneumonia in the setting of pulmonary fibrosis Echocardiogram was relatively unimpressive. Patient has been on Ventimask or BiPAP for most of the evening. Patient is currently on steroids, bronchodilators and antibiotics. Given patient's myelodysplastic syndrome, typical responses to infection may not occur. Will obtain an MRSA swab. If positive, may add vancomycin to current regimen. Patient's weight is actually down from admission, so doubt diuresis would be significantly helpful. 2. Sepsis secondary to pneumonia Patient currently tachycardic and requiring increased FiO2. Patient would be at risk for multidrug-resistant organisms, so will add MRSA swab patient continues to request aggressive measures. Cannot exclude the need for pressor therapy moving forward. Continue to monitor in the intensive care unit. 3. Colitis/gastric thickening/severe protein calorie malnutrition Patient with significant cachexia on exam. Very little metabolic reserves at this time. Dietitian will be consulted. If patient is able to come off of BiPAP therapy, would continue with p.o. intake as tolerated. 4. Myelodysplastic syndrome/anemia Patient currently on chemotherapy, but appears to be progressing. Hematology is not optimistic about patient's long-term prognosis. Family meeting yesterday. Will attempt medical therapy in the short-term. No intubation or CPR. Possible hospice measures if not responding to therapy. No indication for transfusion at this time. 5. L3 compression fracture/history of alcohol abuse/nicotine dependence/history of CVA/previous hyperkalemia Complicates care, management, recovery and prognosis. Nicotine patch has been offered. Code Visit Inpatient E&M: 62599 Subs Hosp L3
--- NOTE | 2018-05-30 07:46 | PN_ITS ---
Patient Problems: Active and Suspected Problems (Last Updated 01/08/18 @ 13:22 by Rosalie Vickers) Abdominal pain, vomiting, and diarrhea (Acute) Acute and chronic respiratory failure with hypoxia (Acute) Subjective: Patient was seen and examined. She has progressive SOB overnight, was started on Bipap. Remained on Bipap predorminatly in the evening and morning. She looks weaker on Bipap. Had family meeting yesterday with Dr. Cowan and the plan was Hospice after 24 hours. Objective: Physical exam: General: Alert, Oriented x3, Cooperative, No apparent distress, - - Cachectic, on Bipap HEENT: Atraumatic, PERRLA, EOMI, Normocephalic Oral: Moist Mucosa Neck: Supple, No JVD, Negative Carotid Bruits Lungs: Decreased air entry in all lung zones, bilateral crackles, coarse in both middle and lower lung zones Cardiovascular: Regular rate, Regular Rhythm, Normal S1, Normal S2, tachycardic Abdomen: Bowel Sounds Present, Soft, Non-Distended, No Hepato-splenomegaly, Tender - Slightly tender in the epigastric region Extremities: No edema Skin: No rashes, No breakdown Musculoskeletal: No Tenderness to Palpation of Joints or Extremities Lymphatic: No Cervical, Supraclavicular, or Inguinal Adenopathy Neurological: Cranial nerves II-XII grossly intact, Neuro grossly intact Psych/Mental Status: Normal Affect, Appropriate Vitals/I&O's: Vital Signs Temp Pulse Resp BP Pulse Ox 97.8 F 102 H 15 111/87 H 92 05/30/18 06:00 05/30/18 06:00 05/30/18 06:00 05/30/18 06:00 05/30/18 06:00 Oxygen Flow Rate (L/min) 6 Oxygen Delivery Method Bi-pap Weight: 37 kg Body Mass Index (BMI) 14.0 Intake and Output for Last 24 Hours 05/28/18 05/29/18 05/30/18 23:59 23:59 23:59 Intake Total 2083 / 2083 2154 / 2154 192 / 192 Output Total 500 / 500 1200 / 1200 200 / 200 Balance 1583 / 1583 954 / 954 -8 / -8 Laboratory Results 05/29/18 05:20: ESR > 130 H 05/29/18 05:20: Lipase 42 L 05/30/18 04:25: Sodium 139, Potassium 4.9, Chloride 108 H, Carbon Dioxide 25.0, Anion Gap 6, BUN 17, Creatinine 0.75, Estim Creat Clear Calc 49.90, Est GFR (MDRD) Af Amer 103, Est GFR (MDRD) Non-Af 85, BUN/Creatinine Ratio 22.8 H, Glucose 135 H, Calcium 7.7 L, Total Bilirubin 0.30, AST 15, ALT 13, Alkaline Phosphatase 140 H, Total Protein 6.7, Albumin 1.4 L, Globulin 5.3 H, Albumin/Globulin Ratio 0.3 L 05/30/18 04:25: WBC 6.9, RBC 2.47 L, Hgb 8.0 L, Hct 24.9 L, MCV 100.8 H, MCH 32.4 H, MCHC 32.1, RDW 17.4 H, RDW Differential 64.9 H, Plt Count 77 L, MPV 11.0, Immature Gran % (Auto) 0.100, Neut % (Auto) 91.4 H, Lymph % (Auto) 5.5 L, [place] % (Auto) 3.0, Eos % (Auto) 0.0, Baso % (Auto) 0.0, Absolute Neuts (auto) 6.3, Absolute Lymphs (auto) 0.38 L, Total Counted Not Reportable, Differential Comment SCANNED Current Medications Acetaminophen (Tylenol) 650 mg PO Q4H PRN PRN PRN Reason: PAIN Last Admin: 05/29/18 17:15 Dose: 650 mg Albuterol Sulfate (Ventolin Aerosols) 2.5 mg INHALATION Q2H PRN PRN PRN Reason: WHEEZING Albuterol/Ipratropium (Duoneb) 3 ml INHALATION Q4HWA.RT [facility] Last Admin: 05/30/18 06:55 Dose: Not Given Calamine/Phenol (Calmoseptine Ointment) 1 applic TOPICAL TID [facility]; Protocol Last Admin: 05/30/18 05:27 Dose: 1 applicatio Calcium Carbonate (Tums) 1,000 mg PO DAILY@0800 [facility] Last Admin: 05/29/18 08:38 Dose: 1,000 mg Calcium/Vitamin D (Os-Óscar 500mg + D) 1 tablet PO TIDCM [facility] Last Admin: 05/29/18 17:12 Dose: 1 tablet Ergocalciferol (Vitamin D) 50,000 unit PO Q7D [facility] Last Admin: 05/29/18 08:39 Dose: 50,000 unit Fentanyl Citrate (Sublimaze (100mcg Ampule)) 25 mcg IV Q2H PRN PRN PRN Reason: PAIN Last Admin: 05/29/18 21:26 Dose: 25 mcg Furosemide (Lasix) 10 mg IV X1 ONE Stop: 05/30/18 07:45 Gabapentin (Neurontin) 800 mg PO TIDCM [facility] Last Admin: 05/29/18 17:12 Dose: 800 mg Heparin Sodium (Beef Lung) (Heparin 500 Unit/5 Ml (100/Ml)) 500 unit IV UD PRN PRN Reason: HEPARIN FLUSH Hydrocortisone Acetate (Anusol Hc) 25 mg RECTAL TID PRN PRN PRN Reason: Hemorrhoids Last Admin: 05/28/18 15:36 Dose: 25 mg Ampicillin Sodium/Sulbactam (Sodium 3 gm/ Sodium Chloride) 112 mls @ 150 mls/hr IV Q8 [facility] Last Admin: 05/30/18 05:27 Dose: 150 mls/hr Azithromycin 500 mg/ Dextrose 255 mls @ 250 mls/hr IV Q24 [facility] Last Admin: 05/29/18 10:43 Dose: 250 mls/hr Sodium Chloride () 1,000 mls @ 15 mls/hr IV .Q48H [facility] Last Admin: 05/29/18 10:47 Dose: 15 mls/hr Lorazepam (Ativan) 0.5 mg PO BID [facility] Last Admin: 05/29/18 21:26 Dose: 0.5 mg Methylprednisolone (Solu-Medrol) 40 mg IV Q8 [facility] Last Admin: 05/30/18 05:27 Dose: 40 mg Multivitamins/Minerals (Multivitamin With Minerals) 1 tablet PO DAILYCM [facility] Last Admin: 05/29/18 08:47 Dose: 1 tablet Nicotine (Nicoderm Cq (Pbkc)) 21 mg TRANSDERM. DAILY [facility] Last Admin: 05/29/18 10:42 Dose: Not Given Nutritional Formula (Lactose Free) (Ensure Clear) 120 ml PO 4X/DAY [facility] Last Admin: 05/29/18 21:25 Dose: 120 ml Ondansetron HCl (Zofran) 4 mg IV Q6H PRN PRN PRN Reason: NAUSEA Last Admin: 05/29/18 06:59 Dose: 4 mg Pantoprazole Sodium (Protonix) 40 mg PO DAILY [facility] Last Admin: 05/29/18 08:38 Dose: 40 mg Potassium Phos/Sodium Phos (Neutra-Phos Packet) 1 packet PO 4X/DAY [facility] Last Admin: 05/29/18 21:25 Dose: 1 packet Sertraline HCl (Zoloft) 100 mg PO DAILY [facility] Last Admin: 05/29/18 08:48 Dose: 100 mg Sodium Chloride () 10 ml IV UD PRN PRN Reason: VAD FLUSH Last Admin: 05/29/18 21:25 Dose: 10 ml Sodium Chloride () 5 - 30 ml IV UD PRN PRN Reason: SALINE FLUSH Medical Necessity - Tobacco Use Smoking Status: Current some day smoker Tobacco Use: Cigarettes Assessment/Plan All Active Problems (Last Updated 01/08/18 @ 13:22 by Rosalie Vickers) Abdominal pain, vomiting, and diarrhea (Acute) Acute and chronic respiratory failure with hypoxia (Acute) SIRS (systemic inflammatory response syndrome) (Resolved) 57-year-old lady with history of myelodysplastic syndrome, last chemo being a month prior to admission admitted with abdominal cramping associated with diarrhea. 1. Acute on chronic hypoxic respiratory failure, likely secondary to multifocal pneumonia, worsening pulmonary fibrosis, remains in ICU, on Bipap. 2. Sepsis due to bilateral HCAP/ suspected aspiration pneumonia, on Unasyn and azithromycin 3. Relative hypotension, intolerant of IV fluids, not on blood pressure medications, 2D echo shows EF 60%, RVSP 40mmHg 4. Hyperkalemia secondary to oral potassium intake, resolved 5. Electrolyte imbalances -resolved 6. Acute colitis, unclear etiology for now, stool for C. difficile and enteric panel are negative. CT abdomen and pelvis od admission showed thickening of the distal stomach, normal intestine and colon. 1 bowel movement since yesterday. 7. Gastric thickening seen on CT abdomen, general surgery consulted, plan is outpatient follow-up, on PPI 8. Severe protein calorie malnutrition, BMI 14, NPO on account of respiratory distress 9. Myelodysplastic syndrome, following with oncology in the outpatient 10. 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 Nicotine dependence, advised to quit, offered nicotine patch for tobacco cravings 12. Chronic alcohol abuse, counseled on cessation 13. Depression/anxiety, on zoloft 14. Anemia of chronic disease secondary to myelodysplastic syndrome, Hb is stable at 8.0 15. L3 compression fracture, likely related to osteoporosis, no formal diagnosis, patient has lots of risk factors, need a DEXA scan in the outpatient, currently on calcium/vitamin D. 16. DVT PPx- SCDs. 17. Code status - DNR-CCA, hospice- d/w manager social responsibility. Code Visit Inpatient E&M: 60296 Subs Hosp L2
[2018-05-30] MEDS: Furosemide 20 MG/2 ML VIAL 10 MG IV (09:11)
[2018-05-30] MEDS: Ipratropium/Albuterol Sulfate 3 ML AMPUL.NEB INHALATION ×3 (11:01→18:57)
--- NOTE | 2018-05-30 11:18 | PCM.PN.BLA ---
Progress Note Hematology oncology progress note: Patient has progressive decline with respiratory failure. Currently on BiPAP with respiratory distress and fatigue. She was given diuretic and Solu-Medrol last night. Condition relatively unchanged afebrile. Impression: Respiratory failure secondary to acute infection (sepsis) from aspiration or hospital-acquired pneumonia. -Because of her nutritional status, limited respiratory reserve from pulmonary fibrosis, and immunodeficiency secondary to MDS; she will unlikely to recover at this point despite aggressive measures and antibiotic treatment. PLAN: -After extensive family meeting yesterday, both patient and family wish to pursue comfort care and inpatient hospice referral. -She is DNR comfort care. -Contact hospice for transfer possibly tomorrow morning. cc: Dr. Bryon Sharpe; Dr. Erica Trinidad; Dr. Chad Cowan
--- NOTE | 2018-05-30 13:02 | CASEMGMT ---
Addendum entered by Ashley Jaquez 05/30/18 14:10: SW let Fany know that pt will be likely going on hospice. BRIANNE Romero, EMERGENCY OPERATOR Original Note: Addendum entered by Ashley Jaquez 05/30/18 14:03: called this SW back. SW explained that Dr. Cowan came in to speak w/pt and pt agreeable to speak w/hospice, would like him present for the meeting. He states he is in the parking lot now and will be up, can meet with hospice any time. SW called [facility], spoke w/Daysi Arthur then got on the phone and she can be here at 3pm. MONIE also let Daysi know that as per the physician, it may benefit pt to move to the hospice unit as soon as possible and not wait until the morning. SW let pt and pt's sister in law know that hospice will be here at 3pm. SW remains available. BRIANNE oRmero, WATSON Original Note: Dr. Cowan met w/pt in room, pt is in agreement with hospice referral, Dr. Cowan in his note stated for hospice to assess and possibly move to the inpt unit tomorrow morning. SW spoke w/pt, confirmed that she is in agreement with the hospice referral, and would like SW to call her to set up an appointment time. SW called , message left. SW called [facility], spoke avril/Kaylin, referral faxed. SW explained will let her know when we hear from so a meeting can be set up. MONIE spoke w/pt again this afternoon(initial referral made at 11:30am), she gave this SW an alternative phone number for , . SW called this number also and left a message to call this SW back. SW will continue to follow. BRIANNE Romero, EMERGENCY OPERATOR
[2018-05-30] MEDS: Acetaminophen 325 MG Tablet 650 MG PO (15:01)
--- NOTE | 2018-05-30 15:33 | CHAPLAIN ---
Type of Pastoral Visit ___ Initial Visit _x__ Follow-up Visit ___ On-call Visit ___ General Patient Visit ___ Spiritual Assessment ___ Family Conference ___ Bereavement ___ Rapid Response ___ Code Blue ___ Other (describe below) Pastoral Care Referral From _x__ Patient ___ Family ___ Nurse ___ Physician ___ Hardware Designer ___ Child Psychiatrist ___ Other (describe below) Sacrament/Intervention _x__ Active listening ___ Anointing ___ Mandaeism ___ Bereavement ___ Communion ___ Alexandra exploration ___ ___ Life review _x__ Prayer ___ Reconciliation ___ Sacrament of Sick _x__ Supportive presence ___ Wedding ___ Other (describe below) Pastoral Comments patient is now on bi-pap and has labored breathing; patient holds my hand and asks me to pray and welcomes the reading of scripture; affirmation of alexandra for patient; calm and comforting words for patient and one family member in the room; family asks for tube mill operator to return again
--- NOTE | 2018-05-30 16:37 | DCINST_ITS ---
- Discharge Diagnoses Current Active Problems: Current Active and Chronic Problems (Last Updated 01/08/18 @ 13:22 by Rosalie Vickers) Abdominal pain, vomiting, and diarrhea (Acute) MDS (myelodysplastic syndrome), low grade (Chronic) Acute and chronic respiratory failure with hypoxia (Acute) Reason(s) for Visit for Discharge Instructions: Respiratory failure Allergies/Adverse Reactions: Allergies No Known Allergies Allergy (Verified 05/24/18 15:17) Medications to take at Discharge Gabapentin [Neurontin] 800 mg PO TIDCM 08/29/14 Lorazepam [Ativan] 0.5 mg PO BID PRN PRN 01/17/15 Sertraline HCl [Zoloft] 100 mg PO QHS 01/17/15 Multivitamins,Ther W-Minerals [Multivitamin With Minerals] 1 tablet PO DAILY 09/20/15 Nitroglycerin 0.4 mg SL PRN PRN 07/17/17 Omeprazole [Prilosec] 40 mg PO DAILY 07/17/17 Ergocalciferol [Vitamin D] 50,000 unit PO Q7D 05/24/18 Ondansetron [Zofran] 8 mg PO PRN PRN 05/24/18 Primary Care Physician: Hussain Reynolds MD [Primary Care Provider] - Test Results: Test results from this visit will be discussed in further detail at your follow- up appointment, if applicable. Proposed Discharge Date: 05/30/18
--- NOTE | 2018-05-30 16:38 | DS.PCM_ITS ---
Discharge Date and Diagnosis - Problem List Patient Problems: Active and Suspected Problems (Last Updated 01/08/18 @ 13:22 by Rosalie Vickers) Abdominal pain, vomiting, and diarrhea (Acute) Acute and chronic respiratory failure with hypoxia (Acute) Date of Admission: 05/24/18 Date of Discharge: 05/30/18 - Primary Discharge Diagnosis Active and Suspected Problems (Last Updated 01/08/18 @ 13:22 by Rosalie Vickers) 1. Acute on chronic hypoxic respiratory failure 2. Sepsis due to bilateral HCAP/ suspected aspiration pneumonia 3. Relative hypotension 4. Hyperkalemia 5. Hypomagnesemia 6. Hypocalcemia 7. Acute colitis 8. Gastric thickening seen on CT abdomen 9. Severe protein calorie malnutrition 10. Anemia of chronic disease 11. Acute L3 compression fracture 12. DNR CCA, referral to hospice - Secondary Discharge Diagnosis Chronic Problems (Last Updated 01/08/18 @ 13:22 by Rosalie Vickers) MDS (myelodysplastic syndrome), low grade (Chronic) Alcoholism (Chronic) Nicotine abuse (Chronic) Acute VT, subendocardial (Chronic) Hyperlipidemia (Chronic) Atherosclerotic heart disease of [place] coronary artery without angina pectoris (Chronic) UIP (usual interstitial pneumonitis) (Chronic) suspected severe chronic changes on CT scan Stroke, hemorrhagic (Chronic) reportedly after a fall w head trauma HTN (hypertension) (Chronic) MDS (myelodysplastic syndrome) (Chronic) Hospital Course and Treatment Imaging Results: Clinical Impression(s) from Imaging Studies Chest X-Ray 05/24/18 15:44 IMPRESSION: Lower lung infiltrates or edema on the left more than the right Electronically Signed: William Ann MD at 16:13 EDT , Service support , Abdomen/Pelvis CT 05/25/18 07:59 IMPRESSION: Wall thickening of the distal stomach with gastritis versus ulcer disease. No obstruction. L3 compression fracture. Fibrotic densities with left lower lung airspace consolidation. Electronically Signed: William Ann MD at 11:46 EDT , Service support , Chest X-Ray 05/27/18 06:57 IMPRESSION: Interval development of bilateral lower lobe, right middle lobe and lingular segment interstitial pneumonias. In correlation with the CT of the abdomen and pelvis development of pulmonary edema is not likely. COPD. Electronically Signed: Shaun Patterson MD at 7:50 EDT , Service support , Chest X-Ray 05/29/18 07:35 IMPRESSION: Decreased inspiratory effort as compared to prior study. Stable diffuse scarring in both lungs with the areas of confluence and honeycombing. 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 Patient was admitted to the telemetry bed and infectious cause of diarrhea was ruled out. She was managed conservatively with IV hydration. Patient developed severe electrolyte imbalances that way corrected. She was persistently tachycardic and was relatively hypotensive despite IV fluids. Patient became progressively short of breath, x-ray showed multifocal infiltrat es, s he was started on antibiotics-Unasyn and azithromycin She alternated between Venturi Mask and nasal cannula oxygen whilst on the [facility] floor. She was transferred to ICU when she became progressively worse of breath. Pulmonology/critical care was consulted. CODE STATUS was changed to DNR CCA. She remained in ICU with worsening respiratory status with the use of BiPAP. Patient was noted to be very dyspneic and drops in her oxygen saturation with the least amount of movement. Family meeting was organized by her oncologist and hospice recommended. Family wanted to wait 24 hours to see if she improves. Patient was eventually transitioned to hospice inpatient facility. Discharge Diet: No Restrictions Home Medications: Medications to take at Discharge Gabapentin [Neurontin] 800 mg PO TIDCM 01/02/15 Lorazepam [Ativan] 0.5 mg PO BID PRN PRN 01/17/15 Sertraline HCl [Zoloft] 100 mg PO QHS 01/17/15 Multivitamins,Ther W-Minerals [Multivitamin With Minerals] 1 tablet PO DAILY 09/20/15 Nitroglycerin 0.4 mg SL PRN PRN 07/17/17 Omeprazole [Prilosec] 40 mg PO DAILY 07/17/17 Ergocalciferol [Vitamin D] 50,000 unit PO Q7D 05/24/18 Ondansetron [Zofran] 8 mg PO PRN PRN 05/24/18 Primary Care Physician: Hussain Reynolds MD [Primary Care Provider] - Disposition: Hospice Medical Facility Minutes spent on discharge:: 50 Patient Condition:: Stable Medical Necessity - Tobacco Use Smoking Status: Current some day smoker Tobacco Use: Cigarettes Meaningful Use Info Meaningful Use Diagnoses (Choose all that apply): None applicable Code Visit Inpatient E&M: 28350 Disch Hosp
--- NOTE | 2018-05-30 17:15 | CHAPLAIN ---
Type of Pastoral Visit ___ Initial Visit _x__ Follow-up Visit ___ On-call Visit ___ General Patient Visit ___ Spiritual Assessment ___ Family Conference ___ Bereavement ___ Rapid Response ___ Code Blue ___ Other (describe below) Pastoral Care Referral From _x__ Patient _x__ Family ___ Nurse ___ Physician ___ Pediatric Physician ___ Lead Database Administrator ___ Other (describe below) Sacrament/Intervention _x__ Active listening ___ Anointing ___ Voodoo ___ Bereavement ___ Communion ___ Alexandra exploration ___ ___ Life review ___ Prayer ___ Reconciliation ___ Sacrament of Sick _x__ Supportive presence ___ Wedding ___ Other (describe below) Pastoral Comments patient to be moved to hospice inpatient facility; gave support to spouse in his grief process; accompanied train gateman of patient's father to room to meet with the father; gave presence
[2018-05-30] MEDS: fentaNYL 100 MCG/2 ML Ampul 25 MCG IV (20:13)
[2018-05-30] MEDS: 0.9% NaCl VAD Flush 10 ML IV ×2 (20:18→20:19)
--- NOTE | 2018-05-30 20:43 | NURSING ---
PT transferred to Hospice at this time with [facility]. Belongings sent with .
== END 2018-05-30 20:45 | disposition hospice, inpatient (51) | DRG 391 ==
LOC: ED 16:32 → MS3 17:39 → ICU 05-30 06:56
PROVIDERS: Family Medicine; Internal Medicine; Internal Medicine Critical Care Medicine; Internal Medicine Hematology & Oncology; Nurse Practitioner Family; Admitting Provider Student in an Organized Health Care Education/Training Program; Emergency Provider Emergency Medicine; Family Provider Family Medicine; PCP Family Medicine; Referring Provider Student in an Organized Health Care Education/Training Program; Visit Provider Internal Medicine
DX: K52.9 Noninfective gastroenteritis and colitis, unspecified (principal); E41 Nutritional marasmus; A41.9 Sepsis, unspecified organism; E43 Unspecified severe protein-calorie malnutrition; J96.21 Acute and chronic respiratory failure with hypoxia; J69.0 Pneumonitis due to inhalation of food and vomit; Z68.1 Body mass index [BMI] 19.9 or less, adult; M48.56XA Collapsed vertebra, not elsewhere classified, lumbar region, initial encounter for fracture; I47.1 Supraventricular tachycardia; E83.51 Hypocalcemia; Z66 Do not resuscitate; D46.9 Myelodysplastic syndrome, unspecified; F17.210 Nicotine dependence, cigarettes, uncomplicated; E83.42 Hypomagnesemia; E87.5 Hyperkalemia; D63.8 Anemia in other chronic diseases classified elsewhere; I25.10 Atherosclerotic heart disease of native coronary artery without angina pectoris; I10 Essential (primary) hypertension; E78.5 Hyperlipidemia, unspecified; F10.21 Alcohol dependence, in remission; K21.9 Gastro-esophageal reflux disease without esophagitis; R29.6 Repeated falls; Z99.81 Dependence on supplemental oxygen; J84.10 Pulmonary fibrosis, unspecified; Z51.5 Encounter for palliative care
CPT/HCPCS: 36591; 36600; 71045; 71046; 74177; 80048; 80053; 80076; 81001; 82330; 82607; 82746; 82803; 83540; 83550; 83605; 83690; 83735; 84100; 85025; 85027; 85045; 85652; 87081; 87493; 87506; 93005; 93306; 94002; 94003; 94640; 94762; 97110; 97116; 97163; 97165; 97530; 99281; J7030; J7040; Q9967; A4216; J0295; J0610; J1940; J2405